=== PATIENT | male | born 1945 | race Caucasian/White ===

== ENCOUNTER 2021-03-09 10:28 | Inpatient (IN) ==
[2021-03-09] MEDS ORDERED: ALBUT/IPRATROP 3MG/0.5MG NEB 3 ML VIAL INH STA (11:38)
--- NOTE | 2021-03-09 11:42 | Emergency Department Note ---
Impression & Plan Hypoxia, Pneumonia, SOB (shortness of breath), Cough ED Provider Note NAME: ASHLEY MCCARTNEY AGE: 75 SEX: M : 1945 ARRIVES VIA: Ambulance INFORMANT: [Patient][ems] ED PROVIDER(S): [Don Michel MD] CHIEF COMPLAINT: Shortness of breath HISTORY OF PRESENT ILLNESS: The patient is a 75-year-old male who presents with shortness of breath and cough. His symptoms began about 5 days ago but things are escalating. He has felt more and more short of breath. He has had some sweats and chills and some arm aching. He is not sure if he has had a fever. He had a bout of diarrhea just a bit ago and vomited on the way to the hospital. The patient is vaccinated against COVID-19. He has had the flu vaccination. The patient is visiting from [place]. He was at the [facility] walk-in clinic, his O2 saturation was in the upper 80s, he was placed on oxygen and sent to this ED by ambulance. Patient is on Eliquis for A. fib. He has high blood pressure, diabetes type 2 and high cholesterol. No lung or coronary disease. REVIEW OF SYSTEMS: See HPI for pertinent positives and negatives. A total of ten systems were reviewed and were otherwise negative. PMHx/PSHx: See Below SOCIAL HISTORY: See Below. PHYSICAL EXAM: GENERAL: Patient is in mild respiratory distress. HEENT: No acute trauma, normocephalic atraumatic, mucous membranes moist, no nasal congestion, no scleral icterus. NECK: No stridor, no adenopathy, no meningismus, trachea is midline. LUNGS: Crackles at both bases, especially on the right. He does have an increased respiratory rate. He speaks in shorter sentences. Mild respiratory distress noted. HEART: No murmur, regular rate, he does have an irregular rhythm. ABDOMEN: Soft, nontender, bowel sounds positive, no hernias, no peritonitis. EXTREMITIES: No cyanosis, mild bilateral pedal edema, full range of motion of all the joints without pain or difficulty, no signs for acute trauma. NEUROLOGIC: Oriented x 3, no acute motor or sensory deficits, no focal weakness. SKIN: No rash, no jaundice, no diaphoresis. DIFFERENTIAL DIAGNOSIS: Reactive airway disease, pneumonia, pneumothorax, COPD, CHF, influenza, COVID- 19, infection, cardiac ischemia, pulmonary embolism, bronchitis, musculoskeletal, gastrointestinal, as well as other pathologies. EMERGENCY DEPARTMENT COURSE/PROCEDURES: ECG: Indication was shortness of breath. The ECG shows a normal sinus rhythm with a rate of 73. There is some nonspecific ST change. There is no ST elevation, no PVCs. The QTc is 445. Continuous Cardiac Monitoring: An order was placed for continuous cardiac monitoring. The monitor shows a rate of 84 with normal sinus rhythm. Critical Care Note: I have personally spent 52 minutes of critical care time in the direct management of this patient. This includes bedside care, interpretation of diagnostic studies, and testing, discussion with consultants, patient, and family members, and other required patient management activities. This 52 minutes is in excess of all separately billable procedures. MEDICAL DECISION MAKING: There is no leukocytosis or concerning anemia. Platelet count slightly low at 120. INR is mildly elevated, likely from his Eliquis use. No kidney failure. No significant electrolyte abnormality in need of emergent correction. No worrisome liver enzyme elevation. BNP is not elevated making CHF and fluid overload less likely. Procalcitonin level is not elevated. ECG shows a sinus rhythm. No ST elevation. Cardiac enzyme testing x1 is not consistent with ac [place] cardiac injury. Influenza testing returned negative. Covid testing returned negative. Chest film shows a bilateral pneumonia consistent with a viral process. No pneumothorax. Chest CT does not show PE, patchy bilateral infiltrates were noted. The patient received a DuoNeb. He received IV ceftriaxone. He was maintained on nasal cannula oxygen. The patient presents with a cough, some shortness of breath. He was hypoxic and requiring oxygen. He appears to have pneumonia by chest x-ray and CT imaging. Given his findings, given the hypoxia, a hospital stay is warranted. I did speak with the patient and case management, the on-call hospitalist was consulted. Past Med/Surg History Medical History Atrial fibrillation Reason for eliquis--follows with Dr Deras in [place]--pt states that since he had his ablation in 2007 he has not been in a-fib CAD (coronary artery disease) s/p stent per records Chronic back pain Diabetes mellitus, type 2 High cholesterol Hypertension On anticoagulant therapy eliquis daily Surgical History History of cardiac radiofrequency ablation 2008 in [place] History of colonoscopy History of left hip replacement 2017 History of tonsillectomy Hx of vasectomy Family History Other Heart disease No family history of adverse response to anesthesia Social History Smoking Status: Former smoker Tobacco Type: Cigarettes Second Hand Exposure: No; Hx Alcohol Use: Yes Alcohol type: beer Alcohol Intake Frequency: Monthly or Less Hx Substance Use: No Preferred Language: Thai Communication Ability: Effective Mission Commander Required: No Beliefs That Will Affect Care: None Current Living Situation: Family Current Living Situation Comment: lives with daughter and son-in-law Feels Safe at Home: Yes Assistive Devices: Glasses Allergies Allergies Allergy/AdvReac Type Severity Reaction Status Date / Time No Known Allergies Allergy Verified 03/09/21 13:21 Home Meds Home Medications Medication Instructions Recorded Confirmed apixaban 5 mg tablet (Eliquis) 5 mg PO BID 11/09/19 03/09/21 atorvastatin 10 mg tablet (Lipitor) 10 mg PO DAILY 11/09/19 03/09/21 ezetimibe 10 mg tablet (Zetia) 10 mg PO DAILY 11/09/19 03/09/21 gabapentin 300 mg capsule 300 mg PO BID 11/09/19 03/09/21 insulin glargine 100 unit/mL (3 50 unit SUBCUT QPM 11/09/19 03/09/21 mL) subcutaneous pen (Basaglar KwikPen U-100 Insulin) lisinopril 40 mg tablet 20 mg PO DAILY 11/09/19 03/09/21 sotalol 120 mg tablet 60 mg PO BID 11/09/19 03/09/21 terazosin 10 mg capsule 10 mg PO DAILY 11/09/19 03/09/21 dulaglutide 0.75 mg/0.5 mL 0.75 mg SUBCUT UD 03/09/21 03/09/21 subcutaneous pen injector (Trulicity) Results & Data (ED) Vital Signs Vital Signs - 24 hr 03/09/21 11:13 03/09/21 12:00 03/09/21 12:13 Temperature 36.3 C L 37.1 C Temperature Source Oral Oral Pulse Rate 84 69 Pulse Rate [Apical] 69 Pulse Rhythm Regular Pulse Rhythm [Apical] Regular Respiratory Rate 20 32 H 29 H Respiratory Effort / Characteristics Non-Labored Spontaneous Respiratory Depth Normal Respiratory Pattern Tachypnea Blood Pressure 144/71 H Blood Pressure [Left Radial Artery] 156/76 H Blood Pressure Mean 95 Blood Pressure Mean [Left Radial Artery] 102 Blood Pressure Position Sitting Blood Pressure Position [Left Radial Artery] Lying Pulse Oximetry 96 98 98 Oxygen Delivery Method Nasal Cannula Nasal Cannula Nasal Cannula Oxygen Flow Rate 2 2 2 Sepsis Recent Fever Within 48 Hours No Sepsis New/Unexplained Change in Mental Status N/A Sepsis Action Taken by Nursing No Action Required 03/09/21 12:19 03/09/21 12:37 03/09/21 13:15 Temperature Temperature Source Pulse Rate Pulse Rate [Apical] 69 70 Pulse Rhythm Pulse Rhythm [Apical] Respiratory Rate 20 26 H Respiratory Effort / Characteristics Spontaneous Non-Labored Spontaneous Respiratory Depth Respiratory Pattern Blood Pressure Blood Pressure [Left Radial Artery] 204/86 H Blood Pressure Mean Blood Pressure Mean [Left Radial Artery] 125 Blood Pressure Position Blood Pressure Position [Left Radial Artery] Sitting Pulse Oximetry 96 96 Oxygen Delivery Method Nasal Cannula Nasal Cannula Nasal Cannula Oxygen Flow Rate 2 2 2 Sepsis Recent Fever Within 48 Hours Sepsis New/Unexplained Change in Mental Status Sepsis Action Taken by Nursing 03/09/21 15:00 03/09/21 16:00 Temperature Temperature Source Pulse Rate Pulse Rate [Apical] 67 65 Pulse Rhythm Pulse Rhythm [Apical] Respiratory Rate 28 H 26 H Respiratory Effort / Characteristics Spontaneous Spontaneous Respiratory Depth Normal Normal Respiratory Pattern Blood Pressure Blood Pressure [Left Radial Artery] 210/95 H 181/84 H Blood Pressure Mean Blood Pressure Mean [Left Radial Artery] 133 116 Blood Pressure Position Blood Pressure Position [Left Radial Artery] Pulse Oximetry 95 94 Oxygen Delivery Method Nasal Cannula Oxygen Flow Rate 2 Sepsis Recent Fever Within 48 Hours Sepsis New/Unexplained Change in Mental Status Sepsis Action Taken by Longterm Medications Current Medication List: was personally reviewed by me Laboratory Data Attestation: I reviewed the patient's lab results. Result diagrams: 03/09/21 12:00 03/09/21 12:00 Lab Results 03/09/21 03/09/21 03/09/21 Range/Units 12:00 12:00 12:00 WBC 7.86 (4.8-10.8) K/uL RBC 4.55 L (4.7-6.1) M/uL Hgb 13.9 L (14.0-18.0) g/dL Hct 41.3 L (42-52) % MCV 90.8 (80-100) fL MCH 30.5 (25-34) pg MCHC 33.7 (32-36) g/dL RDW Std Deviation 48.0 H (36.4-46.3) fL RDW Coeff of Marcelo 14.5 (11.5-14.5) % Plt Count 120 L (130-400) K/uL MPV 10.0 (7.4-10.4) fL Immature Gran % (Auto) 0.1 % Neut % (Auto) 77.5 % Lymph % (Auto) 13.5 % Fleming % (Auto) 8.8 % Eos % (Auto) 0.0 % Baso % (Auto) 0.1 % Neut # (Auto) 6.09 (1.4-6.5) K/uL Lymph # (Auto) 1.06 L (1.2-3.4) K/uL Fleming # (Auto) 0.69 H (0.11-0.59) K/uL Eos # (Auto) 0.00 (0-0.5) K/uL Baso # (Auto) 0.01 (0-0.2) K/uL Immature Gran # (Auto) 0.01 (0.00-0.02) K/uL PT 12.8 H (9.0-12.0) Seconds INR 1.3 H (0.9-1.1) APTT 33.3 H (21.0-31.0) Seconds PTT Ratio 1.3 Sodium 139 (136-145) mmol/L Potassium 3.9 (3.5-5.1) mmol/L Chloride 104 (98-107) mmol/L Carbon Dioxide 25 (21-32) mmol/L Anion Gap 10.0 (3-11) BUN 19 H (7-18) mg/dl Creatinine 1.27 (0.6-1.4) mg/dl Est Cr Clr Drug Dosing 62.6 ml/min Est GFR ( Amer) 62.7 ml/min Est GFR (Non-Af Amer) 54.1 ml/min BUN/Creatinine Ratio 15.0 (10-20) Glucose 171 H (70-99) mg/dl Calcium 8.8 (8.5-10.1) mg/dl Magnesium 2.5 H (1.8-2.4) mg/dl Total Bilirubin 1.5 H (0.2-1) mg/dl AST 25 (15-37) U/L ALT 28 (12-78) U/L Alkaline Phosphatase 54 (45-117) U/L Troponin I 0.030 (0-0.045) ng/ml NT-Pro-B Natriuret Pep 1652 (0-1800) pg/ml Total Protein 6.9 (6.4-8.2) gm/dl Albumin 3.4 (3.4-5.0) gm/dl Globulin 3.5 (2.5-4.0) gm/dl Albumin/Globulin Ratio 1.0 (0.9-2) Procalcitonin (0-0.5) ng/ml Adenovirus (PCR) (NotDetected) B. pertussis DNA (PCR) (NotDetected) B.parapertussis DNA PCR (NotDetected) C. pneumoniae DNA (PCR) (NotDetected) Coronavirus OC43 (PCR) (NotDetected) Coronavirus HKU1 (PCR) (NotDetected) Coronavirus 229E (PCR) (NotDetected) SARS-CoV-2 (PCR) (Negative) Coronavirus NL63 (PCR) (NotDetected) Human Metapneumovir PCR (NotDetected) Influenza Type A (PCR) (NotDetected) Influ A Molecular Assay (Negative) Influenza Type B (PCR) (NotDetected) Influ B Molecular Assay (Negative) M. pneumoniae (PCR) (NotDetected) Parainfluenza 1 (PCR) (NotDetected) Parainfluenza 2 (PCR) (NotDetected) Parainfluenza 3 (PCR) (NotDetected) Parainfluenza 4 (PCR) (NotDetected) RSV (PCR) (NotDetected) Entero/Rhino (PCR) (NotDetected) 03/09/21 03/09/21 03/09/21 Range/Units 12:01 12:01 15:28 WBC (4.8-10.8) K/uL RBC (4.7-6.1) M/uL Hgb (14.0-18.0) g/dL Hct (42-52) % MCV (80-100) fL MCH (25-34) pg MCHC (32-36) g/dL RDW Std Deviation (36.4-46.3) fL RDW Coeff of Marcelo (11.5-14.5) % Plt Count (130-400) K/uL MPV (7.4-10.4) fL Immature Gran % (Auto) % Neut % (Auto) % Lymph % (Auto) % Fleming % (Auto) % Eos % (Auto) % Baso % (Auto) % Neut # (Auto) (1.4-6.5) K/uL Lymph # (Auto) (1.2-3.4) K/uL Fleming # (Auto) (0.11-0.59) K/uL Eos # (Auto) (0-0.5) K/uL Baso # (Auto) (0-0.2) K/uL Immature Gran # (Auto) (0.00-0.02) K/uL PT (9.0-12.0) Seconds INR (0.9-1.1) APTT (21.0-31.0) Seconds PTT Ratio Sodium (136-145) mmol/L Potassium (3.5-5.1) mmol/L Chloride (98-107) mmol/L Carbon Dioxide (21-32) mmol/L Anion Gap (3-11) BUN (7-18) mg/dl Creatinine (0.6-1.4) mg/dl Est Cr Clr Drug Dosing ml/min Est GFR ( Amer) ml/min Est GFR (Non-Af Amer) ml/min BUN/Creatinine Ratio (10-20) Glucose (70-99) mg/dl Calcium (8.5-10.1) mg/dl Magnesium (1.8-2.4) mg/dl Total Bilirubin (0.2-1) mg/dl AST (15-37) U/L ALT (12-78) U/L Alkaline Phosphatase (45-117) U/L Troponin I (0-0.045) ng/ml NT-Pro-B Natriuret Pep (0-1800) pg/ml Total Protein (6.4-8.2) gm/dl Albumin (3.4-5.0) gm/dl Globulin (2.5-4.0) gm/dl Albumin/Globulin Ratio (0.9-2) Procalcitonin (0-0.5) ng/ml Adenovirus (PCR) Not Detected (NotDetected) B. pertussis DNA (PCR) Not Detected (NotDetected) B.parapertussis DNA PCR Not Detected (NotDetected) C. pneumoniae DNA (PCR) Not Detected (NotDetected) Coronavirus OC43 (PCR) Not Detected (NotDetected) Coronavirus HKU1 (PCR) Not Detected (NotDetected) Coronavirus 229E (PCR) Not Detected (NotDetected) SARS-CoV-2 (PCR) NEGATIVE Not Detected (Negative) Coronavirus NL63 (PCR) Not Detected (NotDetected) Human Metapneumovir PCR Not Detected (NotDetected) Influenza Type A (PCR) Not Detected (NotDetected) Influ A Molecular Assay Negative (Negative) Influenza Type B (PCR) Not Detected (NotDetected) Influ B Molecular Assay Negative (Negative) M. pneumoniae (PCR) Not Detected (NotDetected) Parainfluenza 1 (PCR) Not Detected (NotDetected) Parainfluenza 2 (PCR) Not Detected (NotDetected) Parainfluenza 3 (PCR) DETECTED A* (NotDetected) Parainfluenza 4 (PCR) Not Detected (NotDetected) RSV (PCR) Not Detected (NotDetected) Entero/Rhino (PCR) Not Detected (NotDetected) 03/09/21 Range/Units 15:53 WBC (4.8-10.8) K/uL RBC (4.7-6.1) M/uL Hgb (14.0-18.0) g/dL Hct (42-52) % MCV (80-100) fL MCH (25-34) pg MCHC (32-36) g/dL RDW Std Deviation (36.4-46.3) fL RDW Coeff of Marcelo (11.5-14.5) % Plt Count (130-400) K/uL MPV (7.4-10.4) fL Immature Gran % (Auto) % Neut % (Auto) % Lymph % (Auto) % Fleming % (Auto) % Eos % (Auto) % Baso % (Auto) % Neut # (Auto) (1.4-6.5) K/uL Lymph # (Auto) (1.2-3.4) K/uL Fleming # (Auto) (0.11-0.59) K/uL Eos # (Auto) (0-0.5) K/uL Baso # (Auto) (0-0.2) K/uL Immature Gran # (Auto) (0.00-0.02) K/uL PT (9.0-12.0) Seconds INR (0.9-1.1) APTT (21.0-31.0) Seconds PTT Ratio Sodium (136-145) mmol/L Potassium (3.5-5.1) mmol/L Chloride (98-107) mmol/L Carbon Dioxide (21-32) mmol/L Anion Gap (3-11) BUN (7-18) mg/dl Creatinine (0.6-1.4) mg/dl Est Cr Clr Drug Dosing ml/min Est GFR ( Amer) ml/min Est GFR (Non-Af Amer) ml/min BUN/Creatinine Ratio (10-20) Glucose (70-99) mg/dl Calcium (8.5-10.1) mg/dl Magnesium (1.8-2.4) mg/dl Total Bilirubin (0.2-1) mg/dl AST (15-37) U/L ALT (12-78) U/L Alkaline Phosphatase (45-117) U/L Troponin I (0-0.045) ng/ml NT-Pro-B Natriuret Pep (0-1800) pg/ml Total Protein (6.4-8.2) gm/dl Albumin (3.4-5.0) gm/dl Globulin (2.5-4.0) gm/dl Albumin/Globulin Ratio (0.9-2) Procalcitonin < 0.05 (0-0.5) ng/ml Adenovirus (PCR) (NotDetected) B. pertussis DNA (PCR) (NotDetected) B.parapertussis DNA PCR (NotDetected) C. pneumoniae DNA (PCR) (NotDetected) Coronavirus OC43 (PCR) (NotDetected) Coronavirus HKU1 (PCR) (NotDetected) Coronavirus 229E (PCR) (NotDetected) SARS-CoV-2 (PCR) (Negative) Coronavirus NL63 (PCR) (NotDetected) Human Metapneumovir PCR (NotDetected) Influenza Type A (PCR) (NotDetected) Influ A Molecular Assay (Negative) Influenza Type B (PCR) (NotDetected) Influ B Molecular Assay (Negative) M. pneumoniae (PCR) (NotDetected) Parainfluenza 1 (PCR) (NotDetected) Parainfluenza 2 (PCR) (NotDetected) Parainfluenza 3 (PCR) (NotDetected) Parainfluenza 4 (PCR) (NotDetected) RSV (PCR) (NotDetected) Entero/Rhino (PCR) (NotDetected) Administered Medications Doxycycline Hyclate 100 mg/ (Dextrose) 110 mls @ 50 mls/hr IV Q12H LU Stop: 03/16/21 15:59 Last Admin: 03/09/21 16:55 Dose: 50 mls/hr Documented by: [id number] Discontinued Medications Albuterol (Albut/Ipratrop 3mg/0.5mg Neb 3 Ml Vial) 3 ml INH NOW STA Stop: 03/09/21 11:39 Last Admin: 03/09/21 12:37 Dose: 3 ml Documented by: [id number] Apixaban (Apixaban 2.5 Mg Tab) 5 mg PO ONE ONE Stop: 03/09/21 16:15 Last Admin: 03/09/21 16:56 Dose: 5 mg Documented by: [id number] Ceftriaxone Sodium (Rocephin) 2,000 mg in 70 mls @ 140 mls/hr IV NOW STA Stop: 03/09/21 13:52 Last Infusion: 03/09/21 15:50 Dose: 0 mls/hr Documented by: [id number] Admin: 03/09/21 13:56 Dose: 140 mls/hr Documented by: [id number] Ioversol (Optiray 320 125ml) 120 ml IV ONCE ONE Stop: 03/09/21 14:19 Last Admin: 03/09/21 14:19 Dose: 120 ml Documented by: [id number] Lisinopril (Lisinopril 20 Mg Tab) 20 mg PO NOW STA Stop: 03/09/21 16:16 Last Admin: 03/09/21 16:59 Dose: 20 mg Documented by: [id number] Sotalol HCl (Sotalol Hcl 80 Mg Tab) 60 mg PO NOW ONE Stop: 03/09/21 16:16 Last Admin: 03/09/21 17:00 Dose: 60 mg Documented by: [id number] Imaging Data Radiologist's Impression: Chest X-Ray 03/09/21 11:38 XR chest 1V portable CLINICAL HISTORY: SOB. COMPARISON STUDY: 11/09/2019 TECHNIQUE: 1 view of the chest FINDINGS: Single frontal view of the chest demonstrates the cardiomediastinal silhouette to be within normal limits. Patchy interstitial and alveolar opacities are present bilaterally. The findings are most characteristic of a viral type pneumonitis. Covid 19 pneumonia should be excluded. There is no evidence for pleural effusion. There is no evidence for vascular congestion. There is no acute osseous pathology. IMPRESSION: Patchy interstitial and alveolar opacities bilaterally characteristic of a viral type pneumonitis and probable early Covid 19 pneumonia. ACT 112: Negative or not required by law. Electronically signed by: Jonathan Seth M.D. 03/09/2021 12:53 PM Chest CTA 03/09/21 13:24 CT angio chest PE protocol CLINICAL HISTORY: Shortness of breath and cough. Evaluate for pulmonary embolus. Abnormal chest radiograph COMPARISON STUDY: Portable chest from 03/09/2021 CT DOSE: 638.28 mGy.cm TECHNIQUE: CT Angio of the chest was performed.followed by image post processing with coronal, and sagittal MIP reformats. Contrast Volume: Optiray 320, 120 ml FINDINGS: Vasculature: There is homogeneous perfusion of the pulmonary vasculature bilaterally. No intraluminal filling defects or evidence for pulmonary embolus is seen. Airway: The airway is clear. No endobronchial lesion is identified. Lungs: Extensive groundglass opacities are present throughout both lungs characteristic of a viral type pneumonitis and Covid 19 pneumonia. The lungs are otherwise clear of confluent alveolar opacities, air bronchograms or pulmonary nodules. Pleura: There is no evidence for pleural effusion. There is no evidence for pneumothorax. Mediastinum: There is no evidence for pathologic adenopathy. The heart size is within normal limits. There is mild coronary artery calcification. The thoracic aorta is within normal limits. There is no evidence for pericardial effusion. Upper abdomen:The adrenal glands are normal bilaterally. There is a small hiatal hernia with mucosal thickening. There is cholelithiasis with no CT evidence for acute cholecystitis. Osseous structures: There is no acute osseous pathology. Degenerative changes are seen within the spine. Impression: 1. No CTA evidence for pulmonary embolus. 2. Extensive groundglass opacities are present throughout both lungs characteristic of a viral type pneumonitis and Covid 19 pneumonia. 3. Small hiatal hernia and cholelithiasis. ACT 112: Negative or not required by law. Electronically signed by: Jonathan Seth M.D. 03/09/2021 2:52 PM Discharge Plan Visit Data Chief Complaint: Shortness of Breath/Dyspnea Stated Complaint: WEAKNESS ED Provider: Don Michel Discharge Problem: Hypoxia, Pneumonia, SOB (shortness of breath), Cough Patient Disposition: Admitted As Inpatient Condition: Fair Forms Stand Alone Forms: [facility] Prescriptions Prescriptions: No Action atorvastatin [Lipitor] 10 mg tablet 10 mg PO DAILY RF: 0 sotalol 120 mg tablet 60 mg PO BID RF: 0 gabapentin 300 mg capsule 300 mg PO BID RF: 0 lisinopril 40 mg tablet 20 mg PO DAILY RF: 0 terazosin 10 mg capsule 10 mg PO DAILY RF: 0 ezetimibe [Zetia] 10 mg tablet 10 mg PO DAILY RF: 0 Basaglar KwikPen U-100 Insulin 100 unit/mL (3 mL) insulin pen 50 unit SUBCUT QPM RF: 0 Eliquis 5 mg tablet 5 mg PO BID RF: 0 Trulicity 0.75 mg/0.5 mL pen injector 0.75 mg SUBCUT UD RF: 0 Referrals Referrals: PCP,NO [Primary Care Provider] -
[2021-03-09 12:18] LABS: Basophils # (auto) 0.01 K/uL (0-0.2); Basophils % (auto) 0.1 %; Hematocrit (blood only) 41.3 % (42-52); Hemoglobin 13.9 g/dL (14.0-18.0); Immature Granulocytes # (auto) 0.01 K/uL (0.00-0.02); Immature Granulocytes % (auto) 0.1 %; Lymphocytes # (auto) 1.06 K/uL (1.2-3.4); Lymphocytes % (auto) 13.5 %; Mean Corpuscular Hemoglobin 30.5 pg (25-34); Mean Corpuscular Hgb Conc 33.7 g/dL (32-36); Mean Corpuscular Volume 90.8 fL (80-100); Monocytes # (auto) 0.69 K/uL (0.11-0.59); Monocytes % (auto) 8.8 %; Neutrophils # (auto) 6.09 K/uL (1.4-6.5); Neutrophils % (auto) 77.5 %; Platelet Count 120 K/uL (130-400); RDW Coefficient of Variation 14.5 % (11.5-14.5); Red Blood Count 4.55 M/uL (4.7-6.1); White Blood Count 7.86 K/uL (4.8-10.8)
[2021-03-09 12:34] LABS: INR 1.3 (0.9-1.1); Partial Thromboplastin Ratio 1.3; Partial Thromboplastin Time 33.3 Seconds (21.0-31.0); Prothrombin Time 12.8 Seconds (9.0-12.0)
[2021-03-09 12:35] LABS: Albumin Level 3.4 gm/dl (3.4-5.0); Calcium 8.8 mg/dl (8.5-10.1); Creatinine Clr Calc Pharmacy 62.6 ml/min; Est GFR (African American) 62.7 ml/min; Est GFR (Non-African American) 54.1 ml/min; Magnesium 2.5 mg/dl (1.8-2.4); Potassium 3.9 mmol/L (3.5-5.1)
[2021-03-09 12:40] LABS: Bilirubin,Total 1.5 mg/dl (0.2-1); Globulin 3.5 gm/dl (2.5-4.0); Total Protein 6.9 gm/dl (6.4-8.2); Troponin I 0.03 ng/ml (0-0.045)
[2021-03-09 12:46] LABS: Influenza A virus by PCR Negative (Negative); Influenza B virus by PCR Negative (Negative)
--- NOTE | 2021-03-09 12:55 | XRay Report ---
XR chest 1V portable CLINICAL HISTORY: SOB. COMPARISON STUDY: 11/09/2019 TECHNIQUE: 1 view of the chest FINDINGS: Single frontal view of the chest demonstrates the cardiomediastinal silhouette to be within normal li mits. Patchy interstitial and alveolar opacities are present bilaterally. The findings are most michele cteristic of a viral type pneumonitis. Covid 19 pneumonia should be excluded. There is no evidence fo r pleural effusion. There is no evidence for vascular congestion. There is no acute osseous pathology . IMPRESSION: Patchy interstitial and alveolar opacities bilaterally characteristic of a viral type pne umonitis and probable early Covid 19 pneumonia. ACT 112: Negative or not required by law. Electronically signed by: Jonathan Seth M.D. 03/09/2021 12:53 PM
[2021-03-09] MEDS ORDERED: cefTRIAXone SODIUM 2,000 MG/70 ML BAG IV STA (13:23)
[2021-03-09] MEDS ORDERED: OPTIRAY 320 125ml IV ONE (14:18)
--- NOTE | 2021-03-09 14:54 | CT Scan Report ---
CT angio chest PE protocol CLINICAL HISTORY: Shortness of breath and cough. Evaluate for pulmonary embolus. Abnormal chest radio graph COMPARISON STUDY: Portable chest from 03/09/2021 CT DOSE: 638.28 mGy.cm TECHNIQUE: CT Angio of the chest was performed.followed by image post processing with coronal, and s agittal MIP reformats. Contrast Volume: Optiray 320, 120 ml FINDINGS: Vasculature: There is homogeneous perfusion of the pulmonary vasculature bilaterally. No intraluminal filling defects or evidence for pulmonary embolus is seen. Airway: The airway is clear. No endobronchial lesion is identified. Lungs: Extensive groundglass opacities are present throughout both lungs characteristic of a viral ty pe pneumonitis and Covid 19 pneumonia. The lungs are otherwise clear of confluent alveolar opacities, air bronchograms or pulmonary nodules. Pleura: There is no evidence for pleural effusion. There is no evidence for pneumothorax. Mediastinum: There is no evidence for pathologic adenopathy. The heart size is within normal limits. There is mild coronary artery calcification. The thoracic aorta is within normal limits. There is no evidence for pericardial effusion. Upper abdomen:The adrenal glands are normal bilaterally. There is a small hiatal hernia with mucosal thickening. There is cholelithiasis with no CT evidence for acute cholecystitis. Osseous structures: There is no acute osseous pathology. Degenerative changes are seen within the sp ine. Impression: 1. No CTA evidence for pulmonary embolus. 2. Extensive groundglass opacities are present throughout both lungs characteristic of a viral type p neumonitis and Covid 19 pneumonia. 3. Small hiatal hernia and cholelithiasis. ACT 112: Negative or not required by law. Electronically signed by: Jonathan Seth M.D. 03/09/2021 2:52 PM
--- NOTE | 2021-03-09 15:16 | History & Physical Report ---
Date of Service March 09, 2021 Assessment & Plan (1) Pneumonia: (2) Person under investigation for COVID-19: Plan: This is a 75yo M with a PMH of atrial fibrillation on anticoagulation, type 2 diabetes, hypertension and other medical problems listed below who presents with shortness of breath over the past 5 days. Chest CTA with extensive groundglass opacities present throughout both lungs characteristic of viral type pneumonitis. No evidence for PE Continue covering empirically for CAP with rocephin, doxy for now, plan to discontinue after 24 hours. Procal negative Covid PCR negative, bio fire positive for parainfluenza Keep on isolation for now, repeat covid pcr in AM Supplemental O2 as needed (3) Hypertension: Plan: Elevated BP upon arrival, did not take any home meds today - given lisinopril in ED. Continue lisinopril (4) Diabetes mellitus, type 2: Plan: A1c 8.9 in 2019 - repeat a1c in AM Hold home agents Glycemic consult placed for mgmt since patient is insulin requiring and may receive IV steroids BSG AC HS (5) Atrial fibrillation: Plan: Given missed dose of Sotalol. Plan to continue BID Continue Eliquis for anticoagulation DVT Ppx: Eliquis Code status: FULL PCP: Visiting from [place], plans to return after holidays Dispo: Admitted to [facility] Patient seen in collaboration with Dr. Crook. Please see addendum. History of Present Illness Chief Complaint: cough, sob Primary Care Provider: NO PCP This is a 75yo M with a PMH of atrial fibrillation on anticoagulation, type 2 diabetes, hypertension and other medical problems listed below who presents with shortness of breath over the past 5 days. Patient lives in [place] but has been in town for 3 weeks visiting family. In addition to feeling SOB, patient has been experiencing productive cough and sinus drainage. Has had sweats and chills but denies chico fever or hemoptysis. No wheezing. No chest pain, abdominal pain, dysuria or constipation. Endorses poor appetite over the past 2 days but no nausea or vomiting. Endorses large bowel movement this morning. Patient is taking all medications as prescribed but did not take morning doses. Received both doses of Covid vaccination. Receives all medical care in [place]. Allergies Allergy/AdvReac Type Severity Reaction Status Date / Time No Known Allergies Allergy Verified 03/09/21 13:21 Home Medications Medication Instructions Recorded Confirmed Type apixaban 5 mg tablet (Eliquis) 5 mg PO BID 11/09/19 03/09/21 History atorvastatin 10 mg tablet (Lipitor) 10 mg PO DAILY 11/09/19 03/09/21 History ezetimibe 10 mg tablet (Zetia) 10 mg PO DAILY 11/09/19 03/09/21 History gabapentin 300 mg capsule 300 mg PO BID 11/09/19 03/09/21 History insulin glargine 100 unit/mL (3 50 unit SUBCUT QPM 11/09/19 03/09/21 History mL) subcutaneous pen (Basaglar KwikPen U-100 Insulin) lisinopril 40 mg tablet 20 mg PO DAILY 11/09/19 03/09/21 History sotalol 120 mg tablet 60 mg PO BID 11/09/19 03/09/21 History terazosin 10 mg capsule 10 mg PO DAILY 11/09/19 03/09/21 History dulaglutide 0.75 mg/0.5 mL 0.75 mg SUBCUT UD 03/09/21 03/09/21 History subcutaneous pen injector (Trulicity) Past Med/Surg History Medical History Atrial fibrillation Reason for eliquis--follows with Dr Deras in [place]--pt states that since he had his ablation in 2007 he has not been in a-fib CAD (coronary artery disease) s/p stent per records Chronic back pain Diabetes mellitus, type 2 High cholesterol Hypertension On anticoagulant therapy eliquis daily Surgical History History of cardiac radiofrequency ablation 2007 in [place] History of colonoscopy History of left hip replacement 2017 History of tonsillectomy Hx of vasectomy Family History Other Heart disease No family history of adverse response to anesthesia Social History Smoking Status: Former smoker Tobacco Type: Cigarettes Second Hand Exposure: No; Hx Alcohol Use: Yes Alcohol type: beer Alcohol Intake Frequency: Monthly or Less Hx Substance Use: No Preferred Language: Frisian Communication Ability: Effective Hog Room Supervisor Required: No Beliefs That Will Affect Care: None Current Living Situation: Family Current Living Situation Comment: lives with daughter and son-in-law Feels Safe at Home: Yes Assistive Devices: Glasses Review of Systems Review of Systems: At least ten systems reviewed and negative except as noted in the HPI. Physical Exam Physical Exam: Please see Dr. Crook's addendum for physical exam. Results & Data Results & Data ([facility]) Vital Signs (Past 12 Hours) Vital Signs Temp Pulse Pulse Resp BP BP Pulse Ox 03/09/21 13:15 70 26 H 204/86 H 96 03/09/21 12:37 69 20 96 03/09/21 12:13 37.1 C 69 29 H 156/76 H 98 03/09/21 12:00 69 32 H 98 03/09/21 11:13 36.3 C L 84 20 144/71 H 96 Laboratory Results Short CBC 03/09/21 Range/Units 12:00 WBC 7.86 (4.8-10.8) K/uL Hgb 13.9 L (14.0-18.0) g/dL Hct 41.3 L (42-52) % Plt Count 120 L (130-400) K/uL BMP 03/09/21 12:00 Sodium 139 Potassium 3.9 Chloride 104 Carbon Dioxide 25 BUN 19 H Creatinine 1.27 Glucose 171 H Calcium 8.8 Cardiac Enzymes 03/09/21 Range/Units 12:00 Troponin I 0.030 (0-0.045) ng/ml Liver Function 03/09/21 Range/Units 12:00 Total Bilirubin 1.5 H (0.2-1) mg/dl AST 25 (15-37) U/L ALT 28 (12-78) U/L Alkaline Phosphatase 54 (45-117) U/L Albumin 3.4 (3.4-5.0) gm/dl Diagnostic Findings Chest X-Ray 03/09/21 11:38 XR chest 1V portable CLINICAL HISTORY: SOB. COMPARISON STUDY: 11/09/2019 TECHNIQUE: 1 view of the chest FINDINGS: Single frontal view of the chest demonstrates the cardiomediastinal silhouette to be within normal limits. Patchy interstitial and alveolar opacities are present bilaterally. The findings are most characteristic of a viral type pneumonitis. Covid 19 pneumonia should be excluded. There is no evidence for pleural effusion. There is no evidence for vascular congestion. There is no acute osseous pathology. IMPRESSION: Patchy interstitial and alveolar opacities bilaterally characteristic of a viral type pneumonitis and probable early Covid 19 pneum onia. ACT 112: Negative or not required by law. Electronically signed by: Jonathan Seth M.D. 03/09/2021 12:53 PM Chest CTA 03/09/21 13:24 CT angio chest PE protocol CLINICAL HISTORY: Shortness of breath and cough. Evaluate for pulmonary embolus. Abnormal chest radiograph COMPARISON STUDY: Portable chest from 03/09/2021 CT DOSE: 638.28 mGy.cm TECHNIQUE: CT Angio of the chest was performed.followed by image post processing with coronal, and sagittal MIP reformats. Contrast Volume: Optiray 320, 120 ml FINDINGS: Vasculature: There is homogeneous perfusion of the pulmonary vasculature bilaterally. No intraluminal filling defects or evidence for pulmonary embolus is seen. Airway: The airway is clear. No endobronchial lesion is identified. Lungs: Extensive groundglass opacities are present throughout both lungs characteristic of a viral type pneumonitis and Covid 19 pneumonia. The lungs are otherwise clear of confluent alveolar opacities, air bronchograms or pulmonary nodules. Pleura: There is no evidence for pleural effusion. There is no evidence for pneumothorax. Mediastinum: There is no evidence for pathologic adenopathy. The heart size is within normal limits. There is mild coronary artery calcification. The thoracic aorta is within normal limits. There is no evidence for pericardial effusion. Upper abdomen:The adrenal glands are normal bilaterally. There is a small hiatal hernia with mucosal thickening. There is cholelithiasis with no CT evidence for acute cholecystitis. Osseous structures: There is no acute osseous pathology. Degenerative changes are seen within the spine. Impression: 1. No CTA evidence for pulmonary embolus. 2. Extensive groundglass opacities are present throughout both lungs characteristic of a viral type pneumonitis and Covid 19 pneumonia. 3. Small hiatal hernia and cholelithiasis. ACT 112: Negative or not required by law. Electronically signed by: Jonathan Seth M.D. 03/09/2021 2:52 PM Supervising Physician Co-Signing Physician Notes Attending Addendum: care coordinated with KARYN Coles please refer to her notes for full details, I agree with her notes patient seen and examined, records reviewed by myself as well on exam, patient seen resting in bed, comfortable, not in distress On 2 L of oxygen via nasal cannula States he feels somewhat improved compared to admission Has occasional dry cough, no fevers or chills, no chest pain no other symptoms VS noted and reviewed oriented x 3 , not in distress, speaks in sentences with no effort nor accessory muscle use normal rate, regular rhythm, no murmurs Positive mild wheezing at the bases, no crackles non distended, soft, nontender no bipedal edema, erythema, warmth no neuro deficits WBC 7.8 Hg 13[address] chest: 1. No CTA evidence for pulmonary embolus. 2. Extensive groundglass opacities are present throughout both lungs characteristic of a viral type pneumonitis and Covid 19 pneumonia. 3. Small hiatal hernia and cholelithiasis. ASSESSMENT AND PLAN BILATERAL PNEUMONIA WITH HYPOXIA Likely secondary to parainfluenza type III virus Rule out COVID-19 pneumonia Start prednisone 40 mg daily Patient declines nebulizer treatments as these have induced atrial fibrillation in the past Empiric ceftriaxone was doxycycline for now Follow-up blood cultures Sputum culture Repeat Covid PCR tomorrow Hypertension Resume usual medications As needed hydralazine History of atrial fibrillation Continue sotalol and Eliquis other diagnoses and plan of care as per KARYN Coles's notes Jung Crook MD
[2021-03-09] MEDS ORDERED: APIXABAN 2.5 MG TAB PO ONE (16:14)
[2021-03-09] MEDS ORDERED: lisinopril 20 MG TAB PO STA (16:15)
[2021-03-09] MEDS ORDERED: SOTALOL HCL 80 MG TAB PO ONE (16:15)
[2021-03-09 16:33] LABS: Adenovirus PCR Not Detected (NotDetected); Bordetella parapertussis PCR Not Detected (NotDetected); Bordetella pertussis PCR Not Detected (NotDetected); Chlamydia pneumoniae PCR Not Detected (NotDetected); Coronavirus 229E PCR Not Detected (NotDetected); Coronavirus CoV-2 (COVID19)PCR Not Detected (NotDetected); Coronavirus HKU1 PCR Not Detected (NotDetected); Coronavirus NL63 PCR Not Detected (NotDetected); Coronavirus OC43PCR Not Detected (NotDetected); Human Metapneumovirus PCR Not Detected (NotDetected); Influenza A PCR Not Detected (NotDetected); Influenza B PCR Not Detected (NotDetected); Mycoplasma pneumoniae PCR Not Detected (NotDetected); Parainfluenza Virus 1 PCR Not Detected (NotDetected); Parainfluenza Virus 2 PCR Not Detected (NotDetected); Parainfluenza Virus 4 PCR Not Detected (NotDetected); Respiratory Syncytial VirusPCR Not Detected (NotDetected); Rhinovirus/Enterovirus PCR Not Detected (NotDetected)
[2021-03-09 16:50] LABS: Parainfluenza Virus 3 PCR DETECTED (NotDetected)
[2021-03-09] MEDS: DOXYCYCLINE HYCLATE 100 MG in DEXTROSE 5% 100 ML IV SCH (16:55)
--- NOTE | 2021-03-09 17:19 | Electrocardiogram Report ---
Test Reason : Blood Pressure : / mmHG Vent. Rate : 073 BPM Atrial Rate : 073 BPM P-R Int : 148 ms QRS Dur : 086 ms QT Int : 404 ms P-R-T Axes : 067 028 041 degrees QTc Int : 445 ms Normal sinus rhythm Nonspecific ST and T wave abnormality Abnormal ECG When compared with ECG of 09-NOV-2019 09:32, Vent. rate has increased BY 34 BPM Nonspecific T wave abnormality now evident in Anterior leads Confirmed by Bill Ervin ([id number]) on 03/09/2021 5:18:47 PM Referred By: Confirmed By:Francisco Javier Ervin
[2021-03-09] MEDS ORDERED: PHARMACY GLYCEMIC MGMT CONSULT PRN (17:25)
[2021-03-09] MEDS: INSULIN ASPART 100 UNITS/ML 3 ML PEN SC SCH ×2 (19:12→21:47)
[2021-03-09] MEDS ORDERED: GLUCOSE 10 TABS/TUBE PO PRN (19:45)
[2021-03-09] MEDS ORDERED: GLUCAGON FOR INJ 1 MG VIAL IM PRN (19:45)
[2021-03-09] MEDS ORDERED: CARBOHYDRATES FOR HYPOGLYCEMIA PO PRN (19:45)
[2021-03-09] MEDS ORDERED: GLUCOSE 40% GEL 15 GM TUBE PO PRN (19:45)
[2021-03-09] MEDS ORDERED: DEXTROSE 50% 50 ML SYRINGE IV PRN (19:45)
[2021-03-09] MEDS ORDERED: INSULIN GLARGINE SOLOSTAR 100 UNITS/ML 3 ML PEN SC SCH (21:00)
[2021-03-09] MEDS ORDERED: ONDANSETRON INJ 2 MG/ML 2 ML VIAL IV PRN (22:20)
[2021-03-09] MEDS ORDERED: ACETAMINOPHEN 325 MG TAB PO PRN (22:20)
[2021-03-09] MEDS ORDERED: POLYETHYLENE (MIRALAX) 17 GM PACK PO PRN (22:20)
[2021-03-09] MEDS: GABAPENTIN 300 MG CAP PO SCH (23:23)
[2021-03-09] MEDS: SOTALOL HCL 80 MG TAB PO SCH (23:23)
[2021-03-10] MEDS: DOXYCYCLINE HYCLATE 100 MG in DEXTROSE 5% 100 ML IV SCH ×2 (03:51→17:28)
[2021-03-10 05:45] LABS: Hematocrit (blood only) 36.6 % (42-52); Hemoglobin 12.5 g/dL (14.0-18.0); Mean Corpuscular Hemoglobin 31.1 pg (25-34); Mean Corpuscular Hgb Conc 34.2 g/dL (32-36); Mean Platelet Volume 9.9 fL (7.4-10.4); Platelet Count 108 K/uL (130-400); RDW Coefficient of Variation 14.5 % (11.5-14.5); Red Blood Count 4.02 M/uL (4.7-6.1); White Blood Count 5.89 K/uL (4.8-10.8)
[2021-03-10 06:18] LABS: BUN Creatinine Ratio 21.4 (10-20); Calcium 8.4 mg/dl (8.5-10.1); Est GFR (Non-African American) 82.9 ml/min; Potassium 3.5 mmol/L (3.5-5.1)
[2021-03-10 08:00] LABS: Estimated Average Glucose 157 mg/dl; Hemoglobin A1C 7.1 % (4.5-5.6)
[2021-03-10 08:07] LABS: Creatinine Clr Calc Pharmacy 90.4 ml/min
[2021-03-10] MEDS: INSULIN ASPART 100 UNITS/ML 3 ML PEN SC SCH ×4 (08:17→21:47)
[2021-03-10] MEDS: EZETIMIBE 10 MG TABLET PO SCH (08:20)
[2021-03-10] MEDS: ATORVASTATIN 10 MG TAB PO SCH (08:20)
[2021-03-10] MEDS: APIXABAN 5 MG TABLET PO SCH ×2 (08:20→21:41)
[2021-03-10] MEDS: TERAZOSIN HCL 5 MG CAP PO SCH (08:20)
[2021-03-10] MEDS: lisinopril 20 MG TAB PO SCH (08:20)
[2021-03-10] MEDS: GABAPENTIN 300 MG CAP PO SCH ×2 (08:21→21:42)
[2021-03-10] MEDS: SOTALOL HCL 80 MG TAB PO SCH ×2 (08:21→21:41)
[2021-03-10] MEDS ORDERED: predniSONE 20 MG TAB PO SCH (09:15)
[2021-03-10] MEDS: cefTRIAXone SODIUM 2,000 MG in DEXTROSE 5% 50 ML IV SCH (09:34)
--- NOTE | 2021-03-10 14:10 | Pharmacy Report ---
Pharmacy Glycemic Short Note 2 - Date of Service March 10, 2021 - Glycemic Short BSG Results (Last 24 hours): 03/09/21 03/09/21 03/10/21 18:29 21:39 04:47 Glucose 101 H POC Glucose 145 H 145 H 03/10/21 03/10/21 07:34 11:34 Glucose POC Glucose 94 132 H OUTPATIENT ANTIDIABETIC REGIMEN: * Basaglar 50 units Q HS * Trulicity 0.75mg weekly * A1c = 7.1% 03/10/21 ASSESSMENT: * Type 2 diabetic admitted for parainfluenza viral pna * Recent A1c reflects good control with outpt regimen basal insulin + GLP1Ag * Fasting BSG 94 this AM w/ 35 units Lantus on board, will reduce dose another 25% to avoid fasting lows * Post-prandial BSGs controlled with current Novolog CF and CR - no change PLAN FOR INPATIENT GLYCEMIC CONTROL: * Hold outpatient oral diabetes medications * Basal insulin * Lantus 25 units SQ Q HS * Bolus insulin * NovoLog per scale ACHS or Q6hrs while NPO * Goal Range: Low 110 mg/dL - High 140 mg/dL * Correction Factor: 20 mg/dL/unit * Nutritional / Prandial insulin per carb ratio of 1 unit per 7 grams CHO consumed PLAN FOR DISCHARGE: * may resume home regimen of Basaglar and Trulicity on discharge given good control, if no contraindications present.
[2021-03-10] MEDS ORDERED: hydrALAZINE HCL 20 MG/ML VIAL IV ONE ×2 (16:39→16:53)
--- NOTE | 2021-03-10 16:52 | XRay Report ---
XR chest 1V portable CLINICAL HISTORY: Follow-up suspected Covid pneumonia. COMPARISON STUDY: 03/09/2021 an interval CTA chest from 03/01/2021 TECHNIQUE: 1 view of the chest FINDINGS: Single frontal view of the chest demonstrates the cardiomediastinal silhouette to be within normal li mits. Compared to the previous examination, there is a deeper inspiratory effort with decreased promi nence of interstitial and alveolar opacities bilaterally. There is no evidence for pleural effusion. There is no evidence for vascular congestion. There is no acute osseous pathology. IMPRESSION: Deeper inspiratory effort with decreased prominence of the previously identified intersti tial and alveolar opacities bilaterally. Compared to the interval CT examination, the findings are ag ain characteristic of a viral type pneumonitis and Covid 19 pneumonia. ACT 112: Negative or not required by law. Electronically signed by: Jonathan Seth M.D. 03/10/2021 4:51 PM
[2021-03-10] MEDS: guaiFENesin 600 MG TABCR PO SCH (17:27)
[2021-03-10] MEDS ORDERED: amLODIPine BESYLATE 5 MG TAB PO ONE (18:59)
--- NOTE | 2021-03-10 19:00 | Hospitalist Progress Note ---
Date of Service March 10, 2021 Assessment & Plan (1) Pneumonia: Plan: Secondary to parainfluenza virus Covid screen x2 Repeat chest x-ray: Bilateral pneumonia, same as yesterday Patient adamantly declines nebulizer treatments at this have caused rapid A. fib in the past Change prednisone to Solu-Medrol 40 mg every 8 Continue ceftriaxone plus doxycycline Add Mucomyst, flutter valve Continue supportive care (2) Hypertension: Plan: Continue lisinopril And amlodipine 5 mg p.o. daily Hydralazine as needed added (3) Diabetes mellitus, type 2: Plan: A1c 8.9 in 2019 - repeat a1c in AM Hold home agents Glycemic consult placed for mgmt BSG AC HS (4) Atrial fibrillation: Plan: Rate control Continue sotalol twice daily Continue Eliquis for anticoagulation DVT Ppx: Eliquis Code status: FULL PCP: Visiting from [place], plans to return after holidays Dispo: Admitted to [facility] Admission and Anticipated Discharge Date Admission Date: March 09, 2021 Subjective Follow-up for parainfluenza virus pneumonia, hypoxia, etc. Seen sitting up in bed, not in distress Reports that he has some dyspnea today Still having cough, productive of white/clear sputum, no chest pain, no fevers or chills No abdominal pain, nausea vomiting No other symptoms Review of Systems Review of Systems: all noted and negative except for above Physical Exam Physical Exam: General- oriented x 3, not in distress, speaks in sentences with no effort or accessory muscle use Eyes- anicteric Neck- no JVD Lungs-positive mild wheezing at the bases, positive mild crackles on the right base, diminished but good air entry bilaterally Heart- normal rate, regular rhythm; no murmurs Abdomen- normal bowel sounds, nondistended, soft, nontender Extremities- no pretibial edema, no calf tenderness Neuro- alert, oriented x 3; no gross focal neurologic deficits Skin- warm & dry Results & Data Results & Data ([facility]) Vital Signs (Past 12 Hours) Vital Signs Pulse Pulse Resp BP BP Pulse Ox 03/10/21 17:30 65 17 175/88 H 95 03/10/21 17:00 63 24 164/100 H 94 03/10/21 16:30 63 23 95 03/10/21 16:00 63 14 181/98 H 94 03/10/21 15:33 71 22 90 03/10/21 15:00 63 24 95 03/10/21 14:42 62 24 167/85 H 95 03/10/21 14:30 61 26 H 167/85 H 93 03/10/21 14:00 61 13 94 03/10/21 13:30 63 26 H 96 03/10/21 13:28 63 16 120/68 97 03/10/21 13:10 76 22 90 03/10/21 12:30 63 24 95 03/10/21 12:00 63 20 96 03/10/21 11:30 59 L 27 H 95 03/10/21 11:00 61 25 H 95 03/10/21 10:30 64 29 H 94 03/10/21 10:00 63 18 94 03/10/21 09:40 66 20 160/81 H 93 03/10/21 09:30 62 18 96 03/10/21 09:00 66 25 H 95 03/10/21 08:30 62 18 98 03/10/21 08:00 61 19 98 03/10/21 07:31 58 L 22 163/88 H 99 all noted and reviewed including below
[2021-03-10] MEDS: methylPREDNISolone 40 MG in SYRINGE 0 ML IV SCH (19:02)
[2021-03-10] MEDS ORDERED: INSULIN GLARGINE SOLOSTAR 100 UNITS/ML 3 ML PEN SC SCH (21:00)
[2021-03-10] MEDS: INSULIN GLARGINE SOLOSTAR 100 UNITS/ML 3 ML PEN SC SCH (21:48)
[2021-03-11] MEDS: INSULIN ASPART 100 UNITS/ML 3 ML PEN SC SCH ×6 (00:05→22:05)
[2021-03-11] MEDS: methylPREDNISolone 40 MG in SYRINGE 0 ML IV SCH ×3 (02:26→17:57)
[2021-03-11 05:59] LABS: Hematocrit (blood only) 37.4 % (42-52); Hemoglobin 12.8 g/dL (14.0-18.0); Mean Corpuscular Hemoglobin 30.3 pg (25-34); Mean Corpuscular Hgb Conc 34.2 g/dL (32-36); Mean Corpuscular Volume 88.6 fL (80-100); Mean Platelet Volume 9.6 fL (7.4-10.4); Platelet Count 135 K/uL (130-400); RDW Coefficient of Variation 14.2 % (11.5-14.5); RDW Standard Deviation 46.1 fL (36.4-46.3); Red Blood Count 4.22 M/uL (4.7-6.1); White Blood Count 6.45 K/uL (4.8-10.8)
[2021-03-11 06:17] LABS: BUN Creatinine Ratio 23.9 (10-20); Calcium 8.8 mg/dl (8.5-10.1); Creatinine Clr Calc Pharmacy 84.6 ml/min; Est GFR (African American) 90.3 ml/min; Est GFR (Non-African American) 77.9 ml/min; Potassium 3.9 mmol/L (3.5-5.1)
[2021-03-11] MEDS: GABAPENTIN 300 MG CAP PO SCH ×2 (08:53→21:46)
[2021-03-11] MEDS: ATORVASTATIN 10 MG TAB PO SCH (08:53)
[2021-03-11] MEDS: SOTALOL HCL 80 MG TAB PO SCH ×2 (08:53→21:46)
[2021-03-11] MEDS: APIXABAN 5 MG TABLET PO SCH ×2 (08:53→21:47)
[2021-03-11] MEDS: EZETIMIBE 10 MG TABLET PO SCH (08:53)
[2021-03-11] MEDS: amLODIPine BESYLATE 5 MG TAB PO SCH (08:54)
[2021-03-11] MEDS: lisinopril 20 MG TAB PO SCH (08:54)
[2021-03-11] MEDS: guaiFENesin 600 MG TABCR PO SCH ×2 (08:56→21:46)
[2021-03-11] MEDS: TERAZOSIN HCL 5 MG CAP PO SCH (08:56)
[2021-03-11] MEDS: DOXYCYCLINE HYCLATE 100 MG CAP PO SCH ×2 (08:56→21:47)
[2021-03-11] MEDS ORDERED: INSULIN GLARGINE SOLOSTAR 100 UNITS/ML 3 ML PEN SC SCH (09:00)
[2021-03-11] MEDS: cefTRIAXone SODIUM 2,000 MG in DEXTROSE 5% 50 ML IV SCH (09:03)
--- NOTE | 2021-03-11 12:43 | Pharmacy Report ---
Pharmacy Glycemic Short Note 2 - Date of Service March 11, 2021 - Glycemic Short BSG Results (Last 24 hours): 03/10/21 03/10/21 03/10/21 17:20 21:40 23:50 Glucose POC Glucose 215 H 174 H 185 H 03/11/21 03/11/21 03/11/21 03:02 05:37 07:54 Glucose 186 H POC Glucose 187 H 201 H 03/11/21 11:26 Glucose POC Glucose 194 H OUTPATIENT ANTIDIABETIC REGIMEN: * Basaglar 50 units Q HS * Trulicity 0.75mg weekly * A1c = 7.1% 03/10/21 ASSESSMENT: 03/11: * Pt received total of 68 units of insulin yesterday: 35 units basal + 33 units bolus. * Pt was started on Solu Medrol 40 IV q8h yesterday evening. He did received Prednisone 40 mg PO x 1 yesterday AM. * Fasting BSG this AM trended up to 201 mg/dl due to steroid induced hyperglycemia. Added basal insulin in the AM as well using a dose of 0.2 mg/kg to cover the AM steroid effects. * Novolog carb ratio tightened to 4.5 also to offset steroid induced hyperglycemia. 03/10/21: * Type 2 diabetic admitted for parainfluenza viral pna * Recent A1c reflects good control with outpt regimen basal insulin + GLP1Ag * Fasting BSG 94 this AM w/ 35 units Lantus on board, will reduce dose another 25% to avoid fasting lows * Post-prandial BSGs controlled with current Novolog CF and CR - no change PLAN FOR INPATIENT GLYCEMIC CONTROL: * Hold outpatient Trulicity * Basal insulin: added AM dose for IV steroid * Lantus 18 units SQ QAM * Lantus 35 units SQ Q HS * Bolus insulin: tightened CR * NovoLog per scale ACHS or Q6hrs while NPO * Goal Range: Low 110 mg/dL - High 140 mg/dL * Correction Factor: 15 mg/dL/unit * Nutritional / Prandial insulin per carb ratio of 1 unit per 4.5 grams CHO consumed PLAN FOR DISCHARGE: * may resume home regimen of Basaglar and Trulicity on discharge given good control, if no contraindications present.
--- NOTE | 2021-03-11 17:21 | Hospitalist Progress Note ---
Date of Service March 11, 2021 Assessment & Plan (1) Pneumonia: Plan: Secondary to parainfluenza virus Covid screen x2 Biofire: (+) Parainfluenza 3 Repeat chest x-ray: Bilateral pneumonia, same as initial Patient adamantly declines nebulizer treatments at this have caused rapid A. fib in the past Change prednisone to Solu-Medrol 40 mg every 8--> wheezing is better today, weaned off oxygen--> taper tomorrow Continue ceftriaxone plus doxycycline Added Mucinex, flutter valve Continue supportive care (2) Hypertension: Plan: Continue lisinopril added amlodipine 5 mg p.o. daily for Better BP control Hydralazine as needed added (3) Diabetes mellitus, type 2: Plan: A1c 8.9 in 2019 - repeat a1c in AM Hold home agents Glycemic consult placed for mgmt BSG AC HS (4) Atrial fibrillation: Plan: Rate control Continue sotalol twice daily Continue Eliquis for anticoagulation DVT Ppx: Eliquis Code status: FULL PCP: Visiting from [place], plans to return after holidays Dispo: pending from [place], visiting family in [place] may need 2 step exercise test prior to discharge Admission and Anticipated Discharge Date Admission Date: March 09, 2021 Subjective ff up for parainfluenza pneumonia with hypoxia, etc seen resting in bed, comfortable on room air in good spirits states he feels somewhat better today weaned off oxygen still has some productive cough no chest pain no other symptoms Review of Systems Review of Systems: all noted and negative except for above Physical Exam Physical Exam: General- oriented x 3, not in distress, speaks in sentences with no effort or accessory muscle use Eyes- anicteric Neck- no JVD Lungs- mild rhonchi at the bases faint, intermittent wheezing Heart- normal rate, regular rhythm; no murmurs Abdomen- normal bowel sounds, nondistended, soft, nontender Extremities- no pretibial edema, no calf tenderness Neuro- alert, oriented x 3; no gross focal neurologic deficits Skin- warm & dry Results & Data Results & Data ([facility]) Vital Signs (Past 12 Hours) Vital Signs Temp Pulse Pulse Resp BP BP Pulse Ox 03/11/21 17:12 68 03/11/21 15:21 36.6 C 68 19 156/74 H 94 03/11/21 11:29 36.7 C 65 17 158/78 H 94 03/11/21 08:25 65 03/11/21 07:18 36.6 C 68 22 174/78 H 94 all noted and reviewed including below
[2021-03-11] MEDS: INSULIN GLARGINE SOLOSTAR 100 UNITS/ML 3 ML PEN SC SCH (22:05)
[2021-03-12] MEDS: INSULIN ASPART 100 UNITS/ML 3 ML PEN SC SCH ×6 (00:23→20:34)
[2021-03-12] MEDS: methylPREDNISolone 40 MG in SYRINGE 0 ML IV SCH ×3 (02:55→17:01)
[2021-03-12 07:11] LABS: Creatinine Clr Calc Pharmacy 86.3 ml/min; Est GFR (African American) 91.5 ml/min; Est GFR (Non-African American) 78.9 ml/min
[2021-03-12] MEDS: INSULIN GLARGINE SOLOSTAR 100 UNITS/ML 3 ML PEN SC SCH ×2 (08:30→20:37)
[2021-03-12] MEDS: cefTRIAXone SODIUM 2,000 MG in DEXTROSE 5% 50 ML IV SCH (08:34)
[2021-03-12] MEDS: GABAPENTIN 300 MG CAP PO SCH ×2 (08:36→20:14)
[2021-03-12] MEDS: SOTALOL HCL 80 MG TAB PO SCH ×2 (08:37→20:15)
[2021-03-12] MEDS: amLODIPine BESYLATE 5 MG TAB PO SCH (08:37)
[2021-03-12] MEDS: TERAZOSIN HCL 5 MG CAP PO SCH (08:37)
[2021-03-12] MEDS: guaiFENesin 600 MG TABCR PO SCH ×2 (08:39→20:15)
[2021-03-12] MEDS: EZETIMIBE 10 MG TABLET PO SCH (08:40)
[2021-03-12] MEDS: DOXYCYCLINE HYCLATE 100 MG CAP PO SCH ×2 (08:40→20:15)
[2021-03-12] MEDS: ATORVASTATIN 10 MG TAB PO SCH (08:41)
[2021-03-12] MEDS: APIXABAN 5 MG TABLET PO SCH ×2 (08:41→20:15)
[2021-03-12] MEDS: lisinopril 20 MG TAB PO SCH (08:41)
--- NOTE | 2021-03-12 23:55 | Hospitalist Progress Note ---
Date of Service March 12, 2021 Assessment & Plan (1) Pneumonia: Plan: Present on admission with SOB and cough Secondary to parainfluenza virus Covid screen x2 Biofire: (+) Parainfluenza 3 CTA chest showed no CTA evidence for pulmonary embolus. Extensive groundglass opacities are present throughout both lungs characteristic of a viral type pneumonitis and Covid 19 pneumonia. CXR showed interstitial and alveolar opacities bilaterally. Patient adamantly declined nebulizer treatments due to previous history of rapid A. fib after neb treatment On IV solumedrol, will transition to prednisone On IV ceftriaxone plus doxycycline, will discharge on Doxycycline Has been walking around with no distress Continue flutter valve Saturated well on RA (2) Hypertension: Plan: Continue lisinopril added amlodipine 5 mg p.o. daily for Better BP control Continue monitor BP (3) Diabetes mellitus, type 2: Plan: Most recent Hba1c 7.1 on 03/02 Will resume oral agents on discharge Glycemic consult placed for mgmt Continue monitor BS (4) Atrial fibrillation: Plan: Rate control Continue sotalol twice daily Continue Eliquis for anticoagulation DVT Ppx: Eliquis Code status: FULL PCP: Visiting from [place], plans to return after holidays Dispo: from [place], visiting family in [place] Admission and Anticipated Discharge Date Admission Date: March 09, 2021 Subjective Pt was seen for follow up for parainfluenza Sitting at the edge of the bed with no distress Pt said that last night he slept well He said that his cough is getting better He has been saturated well on RA Denies any chest pain, palpitation, dizziness and SOB Review of Systems Review of Systems: All systems reviewed & are unremarkable except as noted in Subjective Physical Exam Physical Exam: General- No acute distress Head- atraumatic Eyes- PERRL, EOMI, ENT- oropharynx clear Neck- supple, no JVD Lungs- faint wheezing Heart- regular rhythm; no murmur Abdomen- normal bowel sounds, soft, nontender Extremities- no calf tenderness Neuro- alert, oriented x 3; PERRL, EOMI; no facial palsy; no dysarthria Skin- warm & dry Results & Data Results & Data ([facility]) Vital Signs (Past 12 Hours) Vital Signs Temp Pulse Resp BP Pulse Ox 03/12/21 23:31 36.6 C 58 L 18 159/70 H 94 03/12/21 20:24 36.5 C 64 18 175/82 H 92 03/12/21 19:30 36.6 C 67 18 177/88 H 94 03/12/21 14:59 36.6 C 58 L 20 154/74 H 94 03/12/21 12:05 36.5 C 60 20 161/77 H 94
[2021-03-13] MEDS: methylPREDNISolone 40 MG in SYRINGE 0 ML IV SCH ×2 (02:30→08:50)
[2021-03-13] MEDS: INSULIN ASPART 100 UNITS/ML 3 ML PEN SC SCH ×2 (08:00→12:07)
[2021-03-13] MEDS: cefTRIAXone SODIUM 2,000 MG in DEXTROSE 5% 50 ML IV SCH (08:04)
[2021-03-13] MEDS: ATORVASTATIN 10 MG TAB PO SCH (08:08)
[2021-03-13] MEDS: SOTALOL HCL 80 MG TAB PO SCH (08:09)
[2021-03-13] MEDS: TERAZOSIN HCL 5 MG CAP PO SCH (08:09)
[2021-03-13] MEDS: EZETIMIBE 10 MG TABLET PO SCH (08:09)
[2021-03-13] MEDS: amLODIPine BESYLATE 5 MG TAB PO SCH (08:09)
[2021-03-13] MEDS: lisinopril 20 MG TAB PO SCH (08:09)
[2021-03-13] MEDS: guaiFENesin 600 MG TABCR PO SCH (08:10)
[2021-03-13] MEDS: APIXABAN 5 MG TABLET PO SCH (08:11)
[2021-03-13] MEDS: GABAPENTIN 300 MG CAP PO SCH (08:11)
[2021-03-13] MEDS: DOXYCYCLINE HYCLATE 100 MG CAP PO SCH (08:11)
[2021-03-13] MEDS: INSULIN GLARGINE SOLOSTAR 100 UNITS/ML 3 ML PEN SC SCH (08:57)
--- NOTE | 2021-03-13 12:43 | Discharge Summary ---
Date of Service March 13, 2021 Admission HPI Per Admitting Provider This is a 75yo M with a PMH of atrial fibrillation on anticoagulation, type 2 diabetes, hypertension and other medical problems listed below who presents with shortness of breath over the past 5 days. Patient lives in [place] but has been in town for 3 weeks visiting family. In addition to feeling SOB, patient has been experiencing productive cough and sinus drainage. Has had sweats and chills but denies chico fever or hemoptysis. No wheezing. No chest pain, abdominal pain, dysuria or constipation. Endorses poor appetite over the past 2 days but no nausea or vomiting. Endorses large bowel movement this morning. Patient is taking all medications as prescribed but did not take morning doses. Received both doses of Covid vaccination. Receives all medical care in [place]. Admission Exam Per Admitting Provider oriented x 3 , not in distress, speaks in sentences with no effort nor accessory muscle use normal rate, regular rhythm, no murmurs Positive mild wheezing at the bases, no crackles non distended, soft, nontender no bipedal edema, erythema, warmth no neuro deficits Principal Diagnosis Pneumonia: Parainfluenza virus Hypertension: Diabetes mellitus, type 2: Atrial fibrillation Discharge Exam General- No acute distress Head- atraumatic Eyes- PERRL, EOMI, ENT- oropharynx clear Neck- supple, no JVD Lungs- faint wheezing Heart- regular rhythm; no murmur Abdomen- normal bowel sounds, soft, nontender Extremities- no calf tenderness Neuro- alert, oriented x 3; PERRL, EOMI; no facial palsy; no dysarthria Skin- warm & dry Discharge Data Allergies Allergy/AdvReac Type Severity Reaction Status Date / Time No Known Allergies Allergy Verified 03/09/21 13:21 Consultations 03/09/21 13:58 ED Decision to Admit Stat Ordered Studies 03/09/21 13:24 CT angio chest PE protocol Stat XR chest 1V portable CLINICAL HISTORY: Follow-up suspected Covid pneumonia. COMPARISON STUDY: 03/09/2021 an interval CTA chest from 03/01/2021 TECHNIQUE: 1 view of the chest FINDINGS: Single frontal view of the chest demonstrates the cardiomediastinal silhouette to be within normal limits. Compared to the previous examination, there is a deeper inspiratory effort with decreased prominence of interstitial and alveolar opacities bilaterally. There is no evidence for pleural effusion. There is no evidence for vascular congestion. There is no acute osseous pathology. IMPRESSION: Deeper inspiratory effort with decreased prominence of the previously identified interstitial and alveolar opacities bilaterally. Compared to the interval CT examination, the findings are again characteristic of a viral type pneumonitis and Covid 19 pneumonia. ACT 112: Negative or not required by law. Electronically signed by: Jonathan Seth M.D. 03/10/2021 4:51 PM Dictated:03/10/21 1648 Transcribed: 03/10/211647 CT angio chest PE protocol CLINICAL HISTORY: Shortness of breath and cough. Evaluate for pulmonary embolus. Abnormal chest radiograph COMPARISON STUDY: Portable chest from 03/09/2021 CT DOSE: 638.28 mGy.cm TECHNIQUE: CT Angio of the chest was performed.followed by image post processing with coronal, and sagittal MIP reformats. Contrast Volume: Optiray 320, 120 ml FINDINGS: Vasculature: There is homogeneous perfusion of the pulmonary vasculature bilaterally. No intraluminal filling defects or evidence for pulmonary embolus is seen. Airway: The airway is clear. No endobronchial lesion is identified. Lungs: Extensive groundglass opacities are present throughout both lungs characteristic of a viral type pneumonitis and Covid 19 pneumonia. The lungs are otherwise clear of confluent alveolar opacities, air bronchograms or pulmonary nodules. Pleura: There is no evidence for pleural effusion. There is no evidence for pneumothorax. Mediastinum: There is no evidence for pathologic adenopathy. The heart size is within normal limits. There is mild coronary artery calcification. The thoracic aorta is within normal limits. There is no evidence for pericardial effusion. Upper abdomen:The adrenal glands are normal bilaterally. There is a small hiatal hernia with mucosal thickening. There is cholelithiasis with no CT evidence for acute cholecystitis. Osseous structures: There is no acute osseous pathology. Degenerative changes are seen within the spine. Impression: 1. No CTA evidence for pulmonary embolus. 2. Extensive groundglass opacities are present throughout both lungs characteristic of a viral type pneumonitis and Covid 19 pneumonia. 3. Small hiatal hernia and cholelithiasis. ACT 112: Negative or not required by law. Electronically signed by: Jonathan Seth M.D. 03/09/2021 2:52 PM Dictated:03/09/21 1448 Transcribed: 03/09/218 XR chest 1V portable CLINICAL HISTORY: SOB. COMPARISON STUDY: 11/09/2019 TECHNIQUE: 1 view of the chest FINDINGS: Single frontal view of the chest demonstrates the cardiomediastinal silhouette to be within normal limits. Patchy interstitial and alveolar opacities are present bilaterally. The findings are most characteristic of a viral type pneumonitis. Covid 19 pneumonia should be excluded. There is no evidence for pleural effusion. There is no evidence for vascular congestion. There is no acute osseous pathology. IMPRESSION: Patchy interstitial and alveolar opacities bilaterally characteristic of a viral type pneumonitis and probable early Covid 19 pneumonia. ACT 112: Negative or not required by law. Electronically signed by: Jonathan Seth M.D. 03/09/2021 12:53 PM Dictated:03/09/21 1252 Transcribed: 03/09/21 1252 Hospital Course (1) Pneumonia: Present on admission with SOB and cough Secondary to parainfluenza virus Covid screen x2 [employer]: (+) Parainfluenza 3 CTA chest showed no CTA evidence for pulmonary embolus. Extensive groundglass opacities are present throughout both lungs characteristic of a viral type pneumonitis and Covid 19 pneumonia. CXR showed interstitial and alveolar opacities bilaterally. Patient adamantly declined nebulizer treatments due to previous history of rapid A. fib after neb treatment On IV solumedrol, will transition to prednisone On IV ceftriaxone plus doxycycline, will discharge on Doxycycline Has been walking around with no distress Continue flutter valve Saturated well on RA (2) Hypertension: Continue lisinopril added amlodipine 5 mg p.o. daily for Better BP control Continue monitor BP (3) Diabetes mellitus, type 2: Most recent Hba1c 7.1 on 03/02 Will resume oral agents on discharge Glycemic consult placed for mgmt Continue monitor BS (4) Atrial fibrillation: Rate control Continue sotalol twice daily Continue Eliquis for anticoagulation DVT Ppx: Eliquis Code status: FULL PCP: Visiting from [place], plans to return after holidays Dispo: from [place], visiting family in [place] Total Time Total Time Spent Total Time Spent (In Minutes): 35 minutes Discharge Plan Discharge Items Patient Disposition: Home - Self-Care Reason For Visit: PNA, PUI Discharge Diagnosis: Pneumonia: Parainfluenza virus Hypertension: Diabetes mellitus, type 2: Atrial fibrillation Condition on Discharge: Fair Activity: Resume your previous activity Non-emergency contact: Primary Care Provider Call non-emergency contact if: you have any medication questions Follow-up/Referrals: Latonia Ingram MD [Hospitalist] - (Date & Time 03/19/2021 11:20 AM Provider Latonia Ingram MD [facility] ) Diet: Carb Consistent or DM2 Addtl Attending Provider Instructions: Follow up with primary care provider 03/19/2021 @ 11:20 AM Latonia Ingram MD [facility] Continue monitor your blood pressure Continue flutter valve Seek medical attention if your symptoms worsening or develop any shortness of breath Continue to wear your mask and practicing social distance Pending Studies at Discharge: No Stand-Alone Forms: My [employer], Smoking Cessation Medications and DC Order Prescriptions: New doxycycline hyclate 100 mg Capsule 100 mg PO BID Qty: 3 RF: 0 amlodipine [Norvasc] 5 mg Tablet 5 mg PO QAM Qty: 30 RF: 0 prednisone 20 mg tablet 20 mg PO UD Qty: 6 RF: 0 Continued atorvastatin [Lipitor] 10 mg tablet 10 mg PO DAILY RF: 0 sotalol 120 mg tablet 60 mg PO BID RF: 0 gabapentin 300 mg capsule 300 mg PO BID RF: 0 lisinopril 40 mg tablet 20 mg PO DAILY RF: 0 terazosin 10 mg capsule 10 mg PO DAILY RF: 0 ezetimibe [Zetia] 10 mg tablet 10 mg PO DAILY RF: 0 Basaglar KwikPen U-100 Insulin 100 unit/mL (3 mL) insulin pen 50 unit SUBCUT QPM RF: 0 Eliquis 5 mg tablet 5 mg PO BID RF: 0 Trulicity 0.75 mg/0.5 mL pen injector 0.75 mg SUBCUT UD RF: 0 Discharge Orders: Discharge Order (Routine); Ordered 03/13/21 Ordered By: Natalya Chu/Other Patient Handouts: High Blood Sugar (Hyperglycemia), Hypoglycemia ( Low Blood Sugar), Managing Type 2 Diabetes Admission Data Admit Date/Time: 03/09/21 15:22 Attending Provider: Natalya Mckeon Admit Provider: Jung Crook Primary Care Provider: PCP,NO Other Interventions: Discharge Summary Assessment (RN) Last Done: 03/13/21 12:52
== END 2021-03-13 16:49 | disposition home or self-care (01) | DRG 195 ==
LOC: ED 10:28 → EDINP 15:22 → SUATTDRO 15:22 → 2S 03-10 23:43

== ENCOUNTER 2024-01-11 18:55 | Inpatient (IN) ==
[2024-01-11 19:41] LABS: Basophils # (auto) 0.02 K/uL (0.00-0.20); Basophils % (auto) 0.2 %; Eosinophils # (auto) 0.07 K/uL (0.00-0.50); Eosinophils % (auto) 0.7 %; Hematocrit (blood only) 36.2 % (42.0-52.0); Hemoglobin 12.3 g/dl (14.0-18.0); Immature Granulocytes # (auto) 0.04 K/uL (0.01-0.20); Immature Granulocytes % (auto) 0.4 %; Lymphocytes # (auto) 1.57 K/uL (1.20-3.40); Lymphocytes % (auto) 15.9 %; Mean Corpuscular Hemoglobin 30.4 pg (25.0-34.0); Mean Corpuscular Volume 89.6 fL (80.0-100.0); Mean Platelet Volume 9.9 fL (9.4-12.4); Monocytes # (auto) 0.74 K/uL (0.11-0.59); Monocytes % (auto) 7.5 %; Neutrophils # (auto) 7.41 K/uL (1.40-6.50); Neutrophils % (auto) 75.3 %; Platelet Count 189 K/uL (130-400); RDW Coefficient of Variation 13.5 % (11.5-14.5); RDW Standard Deviation 44.1 fL (36.4-46.3); Red Blood Count 4.04 M/uL (4.70-6.10); White Blood Count 9.85 K/ul (4.8-10.8)
[2024-01-11 19:54] LABS: Albumin Globulin Ratio 1.8 (0.9-2); Albumin Level 4.1 gm/dl (3.4-5.0); BUN Creatinine Ratio 17.5 (10-20); Calcium 9.2 mg/dl (8.6-10.3); Creatinine Clr Calc Pharmacy 70.2 ml/min; Est GFR (African American) 79.1 ml/min; Est GFR (Non-African American) 68.3 ml/min; Globulin 2.3 gm/dl (2.5-4.0); Magnesium 2.3 mg/dl (1.7-2.4); Potassium 3.9 mmol/L (3.5-5.1); Total Protein 6.4 gm/dl (6.0-8.3)
[2024-01-11 20:02] LABS: Troponin I High Sensitivity 5.3 pg/ml (0-20)
[2024-01-11 20:11] LABS: Appearance Urine Cloudy (Clear); Bacteria Urine Automated None Seen (None Seen); Bilirubin Urine Negative (Negative); Blood Urine 1+ (Negative); Color Urine Yellow; Epithelial Cell Urine Auto 0-2 /hpf (0-2); Glucose Urine UA Negative (Negative); Ketones Urine Negative (Negative); Leukocyte Esterase Urine Negative (Negative); Nitrite Urine Negative (Negative); Protein Urine Negative (Negative); RBC Urine Automated >20 /hpf (0-2); Specific Gravity Urine 1.014 (1.000-1.030); Thyroid Stimulating Hormone 6.817 uIu/ml (0.300-4.500); Urobilinogen Urine Negative (Negative); WBC Urine Automated 0-5 /hpf (0-5)
[2024-01-11] MEDS: OPTIRAY 320 125ml IV ONE (20:33)
[2024-01-11 20:47] LABS: T4 Free Thyroxine 1.11 ng/dl (0.61-1.60)
[2024-01-11] MEDS: KETOROLAC TROMETHAMINE 15 MG/ML VIAL IV ONE (20:53)
[2024-01-11] MEDS: CYCLOBENZAPRINE HCL 10 MG TAB PO STA (20:53)
--- NOTE | 2024-01-11 21:06 | CT Scan Report ---
Exam(s): CTA CHEST IV Amt: 107 ml opti 320 EXAM: CT Angiography Chest With Intravenous Contrast CLINICAL HISTORY: Reason for exam: PE, Recent hip surgery. TECHNIQUE: Axial computed tomographic angiography images of the chest with intravenous contrast. CTDI is 39 mGy and DLP is 797.14 mGy-cm. Automated exposure control was utilized for the study. A dose lowering technique was utilized adhering to the principles of ALARA. MIP reconstructed images were created and reviewed. COMPARISON: No relevant prior studies available. FINDINGS: Pulmonary arteries: No pulmonary embolism. Aorta: No acute findings. Normal caliber. No dissection. Lungs: Atelectasis within the left lower lobe and lingula. Scarring in the anterior left upper lobe. Pleural space: Trace pleural effusions. Heart: Pericardial effusion measuring up to 1.5 cm. Bones/joints: No acute fracture. Soft tissues: Unremarkable. Lymph nodes: Unremarkable. Gallbladder and bile ducts: Cholelithiasis. IMPRESSION: 1. No pulmonary embolism. 2. Moderate pericardial effusion. 3. Trace pleural effusions. Electronically signed by: Alistair Ellis MD 01/11/24 21:05 PM
--- NOTE | 2024-01-11 21:50 | Emergency Department Note ---
Impression & Plan Syncope, cardiogenic, Prolonged QT interval, Acute pericardial effusion, Atrial fibrillation with rapid ventricular response ED Provider Note NAME: ASHLEY MCCARTNEY AGE: 78 SEX: M : 1945 ARRIVES VIA: Ambulance INFORMANT: Patient, ED PROVIDER(S): Adelina Peacock MD CHIEF COMPLAINT: Syncope HPI: This is a an 78-year-old male presenting for syncope. Patient was taking his meds time medications and began feeling lightheaded and "woozy ". Patient then passed out. He was nauseous prior and then had urinary incontinence when he was unconscious. He was after approximately 1 to 3 minutes as per family. He recently had a right hip replacement done. He has stopped his Eliquis for 5 days prior to the surgery and then started again the day of surgery this was done last Wednesday. He was discharged in stable condition. He otherwise notes no current fever, nausea or vomiting. He does note that his right hip is in pain and the muscles will spasm. Otherwise he feels somewhat short of breath. ROS: See above HPI for pertinent positives & negatives. A total of 10 systems reviewed and were otherwise negative. PAST MEDICAL HISTORY: See Below PAST SURGICAL HISTORY: See Below FAMILY HISTORY: See Below SOCIAL HISTORY: See Below HOME MEDICATIONS: See Below ALLERGIES: See Below VITALS: See Below PHYSICAL EXAMINATION: General: resting comfortably in no acute distress Head: Normocephalic and atraumatic Eyes: Normal inspection, extraocular muscles intact Ear, nose, throat: Normal external exam Neck: Normal range of motion Respiratory: lungs clear to auscultation bilaterally Cardiovascular: Regular rate/rhythm, no murmur GI: soft, nontender, no guarding or rebound Extremities: nontender, moves all extremities Neuro: The patient awake and alert, appropriately conversive, no focal deficits, symmetric faces Skin: Warm, dry, and intact MEDICAL DECISION MAKING: This is an 78-year-old male presenting for syncope. Patient had syncopal episode earlier this evening. Patient stopped medication, Eliquis for 5 days for the surgery. Patient postsurgical now making risk of PE more likely. Will do CTA PE protocol. Will get basic blood work, chest x-ray, EKG. -Bloodwork is reviewed showing no significant leukocytosis, anemia, electrolyte or creatinine abnormality -EKG reviewed as below showing prolonged QT again concerning for syncope. Will give magnesium 2 g -Urinalysis revealed no signs of UTI -CTA reveals a moderate pericardial effusion but no pulmonary embolism -Patient does not have signs of cardiac tamponade as he has a stable blood pressure in the 150s. He is somewhat tachycardic with A-fib RVR. Due to his syncopal episode, A-fib and pericardial effusion, will admit for further workup and rule out of cardiac syncope. Differential diagnosis: Cardiogenic syncope, pulmonary embolism, dissection, vasovagal, pain response ER treatment provided: See below Independent History obtained from: Daughter Diagnostics interpreted by me: ECG: ECG independently interpreted by me with atrial fibrillation at a rate of 107, normal axis, normal TN, normal QRS, prolonged QTc no ST segment elevations consistent with STEMI criteria Cardiac Monitoring: An order was placed for continuous cardiac monitoring. The monitor shows a rate of 105 with atrial fibrillation rhythm. Laboratory studies: As stated above and show below. Imaging studies: See below. Past Med/Surg History Problem List (Updated 01/11/24 @ 22:11 by Adelina Peacock MD) Atrial fibrillation with rapid ventricular response (Acute) Acute pericardial effusion (Acute) Prolonged QT interval (Acute) Syncope, cardiogenic (Acute) CAD (coronary artery disease) s/p stent per records Neurogenic claudication due to lumbar spinal stenosis Medical History Atrial fibrillation Reason for eliquis--follows with Dr Deras in [place]--pt states that since he had his ablation in 2007 he has not been in a-fib CAD (coronary artery disease) s/p stent per records Chronic back pain Diabetes mellitus, type 2 High cholesterol Hypertension On anticoagulant therapy eliquis daily Surgical History History of colonoscopy Hx of vasectomy History of tonsillectomy History of cardiac radiofrequency ablation 2007 in [place] History of left hip replacement 2017 Family History Other Heart disease No family history of adverse response to anesthesia Social History Smoking Status: Never smoker Tobacco Type: Cigarettes Second Hand Exposure: No; Do You Dip or Chew Tobacco: No; Hx Alcohol Use: No Hx Substance Use: No Preferred Language: Salvadorean Communication Ability: Effective [employer] Required: No Beliefs That Will Affect Care: None Current Living Situation: Alone Current Living Situation Comment: lives with daughter and son-in-law Feels Safe at Home: Yes Assistive Devices: Glasses Allergies Allergies Allergy/AdvReac Type Severity Reaction Status Date / Time No Known Allergies Allergy Verified 03/09/21 13:21 Home Meds Home Medications Medication Instructions Recorded Confirmed apixaban 5 mg tablet (Eliquis) 5 mg PO BID 11/09/19 03/09/21 atorvastatin 10 mg tablet (Lipitor) 10 mg PO DAILY 11/09/19 03/09/21 ezetimibe 10 mg tablet (Zetia) 10 mg PO DAILY 11/09/19 03/09/21 gabapentin 300 mg capsule 300 mg PO BID 11/09/19 03/09/21 insulin glargine 100 unit/mL (3 50 unit subcut QPM 11/09/19 03/09/21 mL) subcutaneous pen (Basaglar KwikPen U-100 Insulin) lisinopril 40 mg tablet 20 mg PO DAILY 11/09/19 03/09/21 sotalol 120 mg tablet 60 mg PO BID 11/09/19 03/09/21 terazosin 10 mg capsule 10 mg PO DAILY 11/09/19 03/09/21 dulaglutide 0.75 mg/0.5 mL 0.75 mg subcut UD 03/09/21 03/09/21 subcutaneous pen injector (Trulicity) Previous Rx's Medication Instructions Recorded amlodipine 5 mg tablet (Norvasc) 5 mg PO QAM #30 tabs 03/13/21 doxycycline hyclate 100 mg capsule 100 mg PO BID #3 caps 03/13/21 prednisone 20 mg tablet 20 mg PO UD #6 tabs 03/13/21 Results & Data (ED) Vital Signs Vital Signs - 24 hr 01/11/24 19:09 01/11/24 19:14 01/11/24 19:29 Temperature 36.5 C Temperature Source Temporal Artery Scan Pulse Rate 106 H 107 H 106 H Pulse Rate [Finger] Pulse Rhythm Regular Regular Pulse Rhythm [Finger] Pulse Strength Normal Pulse Strength [Finger] Respiratory Rate 20 20 Respiratory Effort / Characteristics Non-Labored Spontaneous Respiratory Depth Normal Blood Pressure 125/87 Blood Pressure [Left Arm] Blood Pressure Mean 99 Blood Pressure Mean [Left Arm] Pulse Oximetry 97 97 Oxygen Delivery Method Room Air Room Air Oxygen Flow Rate Sepsis Recent Fever Within 48 Hours No Sepsis New/Unexplained Change in Mental Status N/A Sepsis Action Taken by Nursing No Action Required Oxygen Flow Rate - Titration Pulse Oximetry Post Tiitration 01/11/24 20:12 01/11/24 20:13 Temperature Temperature Source Pulse Rate Pulse Rate [Finger] 105 H Pulse Rhythm Pulse Rhythm [Finger] Regular Pulse Strength Pulse Strength [Finger] Normal Respiratory Rate 24 Respiratory Effort / Characteristics Non-Labored Spontaneous Respiratory Depth Normal Blood Pressure Blood Pressure [Left Arm] 152/107 H Blood Pressure Mean Blood Pressure Mean [Left Arm] 122 Pulse Oximetry 96 92 Oxygen Delivery Method Nasal Cannula Room Air Nasal Cannula Oxygen Flow Rate 2 0 Sepsis Recent Fever Within 48 Hours Sepsis New/Unexplained Change in Mental Status Sepsis Action Taken by Nursing Oxygen Flow Rate - Titration 2 Pulse Oximetry Post Tiitration 96 Laboratory Data 01/11/24 19:07 01/11/24 19:07 Lab Results 01/11/24 Range/Units 19:07 WBC 9.85 (4.8-10.8) K/ul RBC 4.04 L (4.70-6.10) M/uL Hgb 12.3 L (14.0-18.0) g/dl Hct 36.2 L (42.0-52.0) % MCV 89.6 (80.0-100.0) fL MCH 30.4 (25.0-34.0) pg MCHC 34.0 (32.0-36.0) g/dL RDW Std Deviation 44.1 (36.4-46.3) fL RDW Coeff of Marcelo 13.5 (11.5-14.5) % Plt Count 189 (130-400) K/uL MPV 9.9 (9.4-12.4) fL Immature Gran % (Auto) 0.4 % Neut % (Auto) 75.3 % Lymph % (Auto) 15.9 % [place] % (Auto) 7.5 % Eos % (Auto) 0.7 % Baso % (Auto) 0.2 % Neut # (Auto) 7.41 H (1.40-6.50) K/uL Lymph # (Auto) 1.57 (1.20-3.40) K/uL [place] # (Auto) 0.74 H (0.11-0.59) K/uL Eos # (Auto) 0.07 (0.00-0.50) K/uL Baso # (Auto) 0.02 (0.00-0.20) K/uL Immature Gran # (Auto) 0.04 (0.01-0.20) K/uL Sodium 140 (136-145) mmol/L Potassium 3.9 (3.5-5.1) mmol/L Chloride 104 (98-107) mmol/L Carbon Dioxide 28 (21-32) mmol/L Anion Gap 8 (3-11) BUN 18 (6-23) mg/dl Creatinine 1.03 (0.6-1.4) mg/dl Est Cr Clr Drug Dosing 70.2 ml/min Est GFR ( Amer) 79.1 ml/min Est GFR (Non-Af Amer) 68.3 ml/min BUN/Creatinine Ratio 17.5 (10-20) Glucose 125 H (70-99(Fasting)) mg/dl Calcium 9.2 (8.6-10.3) mg/dl Magnesium 2.3 (1.7-2.4) mg/dl Total Bilirubin 2.0 H (0.2-1.0) mg/dl AST 18 (13-39) U/L ALT 21 (7-52) U/L Alkaline Phosphatase 49 (34-104) U/L Troponin I High Sens 5.3 (0-20) pg/ml Total Protein 6.4 (6.0-8.3) gm/dl Albumin 4.1 (3.4-5.0) gm/dl Globulin 2.3 L (2.5-4.0) gm/dl Albumin/Globulin Ratio 1.8 (0.9-2) TSH 6.817 H (0.300-4.500) uIu/ml Free T4 1.11 (0.61-1.60) ng/dl Urine Color Yellow Urine Appearance Cloudy A (Clear) Urine pH 8.0 H (4.5-7.5) Ur Specific [place] 1.014 (1.000-1.030) Urine Protein Negative (Negative) Urine Glucose (UA) Negative (Negative) Urine Ketones Negative (Negative) Urine Blood 1+ H (Negative) Urine Nitrite Negative (Negative) Urine Bilirubin Negative (Negative) Urine Urobilinogen Negative (Negative) Ur Leukocyte Esterase Negative (Negative) Urine WBC (Auto) 0-5 (0-5) /hpf Urine RBC (Auto) >20 H (0-2) /hpf U Hyaline Cast (Auto) 3-5 H (0-2) /lpf U Epithel Cells (Auto) 0-2 (0-2) /hpf Urine Bacteria (Auto) None Seen (None Seen) Administered Medications Discontinued Medications Cyclobenzaprine HCl (Cyclobenzaprine Hcl 10 Mg Tab) 10 mg PO NOW STA Stop: 01/11/24 20:51 Last Admin: 01/11/24 20:53 Dose: 10 mg Documented By: SALVADOR Ioversol (Optiray 320 125ml) 107 ml IV ONCE ONE Stop: 01/11/24 20:34 Last Admin: 01/11/24 20:33 Dose: 107 ml Documented By: VIKI Ketorolac Tromethamine (Ketorolac Tromethamine 15 Mg/Ml Vial) 15 mg IV NOW ONE Stop: 01/11/24 20:51 Last Admin: 01/11/24 20:53 Dose: 15 mg Documented By: SALVADOR Imaging Data Radiologist's Impression: Chest CTA 01/11/24 19:23 Exam(s): CTA CHEST IV Amt: 107 ml opti 320 EXAM: CT Angiography Chest With Intravenous Contrast CLINICAL HISTORY: Reason for exam: PE, Recent hip surgery. TECHNIQUE: Axial computed tomographic angiography images of the chest with intravenous contrast. CTDI is 39 mGy and DLP is 797.14 mGy-cm. Automated exposure control was utilized for the study. A dose lowering technique was utilized adhering to the principles of ALARA. MIP reconstructed images were created and reviewed. COMPARISON: No relevant prior studies available. FINDINGS: Pulmonary arteries: No pulmonary embolism. Aorta: No acute findings. Normal caliber. No dissection. Lungs: Atelectasis within the left lower lobe and lingula. Scarring in the anterior left upper lobe. Pleural space: Trace pleural effusions. Heart: Pericardial effusion measuring up to 1.5 cm. Bones/joints: No acute fracture. Soft tissues: Unremarkable. Lymph nodes: Unremarkable. Gallbladder and bile ducts: Cholelithiasis. IMPRESSION: 1. No pulmonary embolism. 2. Moderate pericardial effusion. 3. Trace pleural effusions. Electronically signed by: Alistair Ellis MD 01/11/24 21:05 PM Discharge Plan Visit Data Chief Complaint: Syncope Stated Complaint: SYNCOPE ED Provider: Adelina Peacock Discharge Problem: Syncope, cardiogenic, Prolonged QT interval, Acute pericardial effusion, Atrial fibrillation with rapid ventricular response Forms Stand Alone Forms: [facility] Prescriptions Prescriptions: No Action atorvastatin [Lipitor] 10 mg tablet 10 mg PO DAILY sotalol 120 mg tablet 60 mg PO BID gabapentin 300 mg capsule 300 mg PO BID lisinopril 40 mg tablet 20 mg PO DAILY terazosin 10 mg capsule 10 mg PO DAILY ezetimibe [Zetia] 10 mg tablet 10 mg PO DAILY Basaglar DavidikPen U-100 Insulin 100 unit/mL (3 mL) insulin pen 50 unit SUBCUT QPM Eliquis 5 mg tablet 5 mg PO BID Trulicity 0.75 mg/0.5 mL pen injector 0.75 mg SUBCUT UD Rx Instructions: Fridays doxycycline hyclate 100 mg Capsule 100 mg PO BID Qty: 3 0RF amlodipine [Norvasc] 5 mg Tablet 5 mg PO QAM Qty: 30 0RF prednisone 20 mg tablet 20 mg PO UD Qty: 6 0RF Rx Instructions: take 2 tablets for 2 days and 1 tablet for 2 days Referrals Referrals: Ady Edwards DO [Primary Care Provider] -
[2024-01-11] MEDS: MAGNESIUM SULFATE / D5W 1 GM/100 ML BAG IV SCH (22:11)
[2024-01-11] MEDS: ACETAMINOPHEN 1,000 MG/100 ML VIAL IV STA (22:44)
[2024-01-11] MEDS: METOPROLOL TARTRATE 1 MG/ML VIAL IV STA (22:44)
--- NOTE | 2024-01-11 23:50 | History & Physical Report ---
Date of Service January 11, 2024 Assessment & Plan (1) Atrial fibrillation with rapid ventricular response: Plan: Rapid A-fib syncope Ro orthostasis ? Possibly from pericardial effusion CAD hypertension, elevated hyperlipidemia, on statin Rx DM2, reasonable control as of last hemoglobin A1c of 7.1 last 2020 chronic anemia, hemoglobin at baseline recent right hip surgery past tobacco abuse Admit to PCU Lopressor for rate control for now Hold sotalol given marked QTc prolongation TTE, Cardiology consult Re: Pericardial effusion Hold Eliquis, n.p.o. in anticipation of procedure ISS BG goal 1 10-1 40, update hemoglobin A1c Need to obtain patient's home medication list from family as patient unsure of what he takes. Inaccurate medication reconciliation done at the ER. DVT prophylaxis. SCDs while Eliquis on hold Full code Text document was generated using [employer] voice recognition software. It may contain grammatical or spelling errors. Kindly contact undersigned for clarification of any documentation item in question. History of Present Illness Chief Complaint: Syncope Primary Care Provider: Ady Edwards, History obtained from patient and records. Medical history significant for CAD, A-fib status post ablation on Eliquis, hypertension, hyperlipidemia, DM2, chronic anemia (baseline hemoglobin of 12), recent right hip surgery, past tobacco abuse. Last confinement March 2021 for prior influenza pneumonia. Patient underwent outpatient right hip surgery last week at an [facility] facility. Usual discomfort postprocedure. Weakness syncopal event at home tonight. Patient began feeling lightheaded and woozy. Was just out for a few moments. No witnessed seizures/tongue biting. No chest pain/SOB. Usual right hip discomfort. 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 Allergies Allergy/AdvReac Type Severity Reaction Status Date / Time metformin AdvReac Back Pain Verified 01/11/24 22:16 Home Medications Medication Instructions Recorded Confirmed Type apixaban 5 mg tablet (Eliquis) 5 mg PO BID 11/09/19 01/11/24 History atorvastatin 10 mg tablet (Lipitor) 10 mg PO DAILY 11/09/19 01/11/24 History ezetimibe 10 mg tablet (Zetia) 10 mg PO DAILY 11/09/19 01/11/24 History gabapentin 300 mg capsule 300 mg PO BID 11/09/19 01/11/24 History insulin glargine 100 unit/mL (3 50 unit subcut QPM 11/09/19 01/11/24 History mL) subcutaneous pen (Basaglar KwikPen U-100 Insulin) lisinopril 40 mg tablet 20 mg PO DAILY 11/09/19 01/11/24 History sotalol 120 mg tablet 60 mg PO BID 11/09/19 01/11/24 History terazosin 10 mg capsule 10 mg PO DAILY 11/09/19 01/11/24 History dulaglutide 0.75 mg/0.5 mL 0.75 mg subcut UD 03/09/21 01/11/24 History subcutaneous pen injector (Trulicity) amlodipine 5 mg tablet (Norvasc) 5 mg PO QAM #30 tabs 03/13/21 01/11/24 Rx doxycycline hyclate 100 mg capsule 100 mg PO BID #3 caps 03/13/21 01/11/24 Rx prednisone 20 mg tablet 20 mg PO UD #6 tabs 03/13/21 01/11/24 Rx Past Med/Surg History Problem List (Updated 01/11/24 @ 22:11 by Adelina Peacock MD) Atrial fibrillation with rapid ventricular response (Acute) Acute pericardial effusion (Acute) Prolonged QT interval (Acute) Syncope, cardiogenic (Acute) CAD (coronary artery disease) s/p stent per records Neurogenic claudication due to lumbar spinal stenosis Medical History Atrial fibrillation Reason for eliquis--follows with Dr Deras in [place]--pt states that since he had his ablation in 2007 he has not been in a-fib CAD (coronary artery disease) s/p stent per records Chronic back pain Diabetes mellitus, type 2 High cholesterol Hypertension On anticoagulant therapy eliquis daily Surgical History History of colonoscopy Hx of vasectomy History of tonsillectomy History of cardiac radiofrequency ablation 2007 in [place] History of left hip replacement 2017 Family History Other Heart disease No family history of adverse response to anesthesia Social History Smoking Status: Never smoker Tobacco Type: Cigarettes Second Hand Exposure: No; Do You Dip or Chew Tobacco: No; Tobacco Cessation Education Requested by Patient: No Hx Alcohol Use: No Hx Substance Use: No Preferred Language: Malian Communication Ability: Effective 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 Other Information That Helps Us Care for You: No Feels Safe at Home: Yes Safety Concerns: Feels Safe At This Time Assistive Devices: Glasses and Hospital Bed Physical Exam Physical Exam: GENERAL: Comfortable, pleasant, slightly hard of hearing, no respiratory distress SKIN: Pallor, warm HEENT: Alopecia, bespectacled, pale palpebral conjunctivae, no ptosis, dry buccal mucosa NECK : Supple, no tenderness CHEST : CTA, no tenderness HEART : Irregular, no obvious murmurs ABDOMEN: Some distention, nontender EXTREMITIES : Minimal LE swelling/right hip tenderness, no other conspicuous deformities noted NEUROLOGIC : Coherent, no facial asymmetry, slightly hard of hearing, no other gross focality Results & Data Results & Data Vital Signs (Past 12 Hours) Vital Signs Temp Pulse Pulse Resp BP BP Pulse Ox 01/11/24 23:37 104 H 01/11/24 23:34 103 H 154/94 H 01/11/24 23:06 17 154/94 H 95 01/11/24 23:02 148/113 H 01/11/24 23:02 148/113 H 01/11/24 23:00 102 H 13 96 01/11/24 22:26 103 H 20 183/95 H 96 01/11/24 20:13 92 01/11/24 20:12 105 H 24 152/107 H 96 01/11/24 19:29 106 H 20 97 01/11/24 19:14 107 H 01/11/24 19:09 36.5 C 106 H 20 125/87 97 O2 Del Method O2 Flow Rate 01/11/24 23:37 01/11/24 23:34 01/11/24 23:06 01/11/24 23:02 01/11/24 23:02 01/11/24 23:00 01/11/24 22:26 Room Air 01/11/24 20:13 Room Air, Nasal Cannula 0 01/11/24 20:12 Nasal Cannula 2 01/11/24 19:29 Room Air 01/11/24 19:14 01/11/24 19:09 Room Air Laboratory Results Laboratory Results WBC 9.85 K/ul (4.8-10.8) 01/11/24 19:07 RBC 4.04 M/uL (4.70-6.10) L 01/11/24 19:07 Hgb 12.3 g/dl (14.0-18.0) L 01/11/24 19:07 Hct 36.2 % (42.0-52.0) L 01/11/24 19:07 MCV 89.6 fL (80.0-100.0) 01/11/24 19:07 MCH 30.4 pg (25.0-34.0) 01/11/24 19:07 MCHC 34.0 g/dL (32.0-36.0) 01/11/24 19:07 RDW Std Deviation 44.1 fL (36.4-46.3) 01/11/24 19:07 RDW Coeff of Marcelo 13.5 % (11.5-14.5) 01/11/24 19:07 Plt Count 189 K/uL (130-400) 01/11/24 19:07 MPV 9.9 fL (9.4-12.4) 01/11/24 19:07 Immature Gran % (Auto) 0.4 % 01/11/24 19:07 Neut % (Auto) 75.3 % 01/11/24 19:07 Lymph % (Auto) 15.9 % 01/11/24 19:07 [place] % (Auto) 7.5 % 01/11/24 19:07 Eos % (Auto) 0.7 % 01/11/24 19:07 Baso % (Auto) 0.2 % 01/11/24 19:07 Neut # (Auto) 7.41 K/uL (1.40-6.50) H 01/11/24 19:07 Lymph # (Auto) 1.57 K/uL (1.20-3.40) 01/11/24 19:07 [place] # (Auto) 0.74 K/uL (0.11-0.59) H 01/11/24 19:07 Eos # (Auto) 0.07 K/uL (0.00-0.50) 01/11/24 19:07 Baso # (Auto) 0.02 K/uL (0.00-0.20) 01/11/24 19:07 Immature Gran # (Auto) 0.04 K/uL (0.01-0.20) 01/11/24 19:07 Sodium 140 mmol/L (136-145) 01/11/24 19:07 Potassium 3.9 mmol/L (3.5-5.1) 01/11/24 19:07 Chloride 104 mmol/L (98-107) 01/11/24 19:07 Carbon Dioxide 28 mmol/L (21-32) 01/11/24 19:07 Anion Gap 8 (3-11) 01/11/24 19:07 BUN 18 mg/dl (6-23) 01/11/24 19:07 Creatinine 1.03 mg/dl (0.6-1.4) 01/11/24 19:07 Est Cr Clr Drug Dosing 70.2 ml/min 01/11/24 19:07 Est GFR ( Amer) 79.1 ml/min 01/11/24 19:07 Est GFR (Non-Af Amer) 68.3 ml/min 01/11/24 19:07 BUN/Creatinine Ratio 17.5 (10-20) 01/11/24 19:07 Glucose 125 mg/dl (70-99(Fasting)) H 01/11/24 19:07 Calcium 9.2 mg/dl (8.6-10.3) 01/11/24 19:07 Magnesium 2.3 mg/dl (1.7-2.4) 01/11/24 19:07 Total Bilirubin 2.0 mg/dl (0.2-1.0) H 01/11/24 19:07 AST 18 U/L (13-39) 01/11/24 19:07 ALT 21 U/L (7-52) 01/11/24 19:07 Alkaline Phosphatase 49 U/L (34-104) 01/11/24 19:07 Troponin I High Sens 5.3 pg/ml (0-20) 01/11/24 19:07 Total Protein 6.4 gm/dl (6.0-8.3) 01/11/24 19:07 Albumin 4.1 gm/dl (3.4-5.0) 01/11/24 19:07 Globulin 2.3 gm/dl (2.5-4.0) L 01/11/24 19:07 Albumin/Globulin Ratio 1.8 (0.9-2) 01/11/24 19:07 TSH 6.817 uIu/ml (0.300-4.500) H 01/11/24 19:07 Free T4 1.11 ng/dl (0.61-1.60) 01/11/24 19:07 Urine Color Yellow 01/11/24 19:07 Urine Appearance Cloudy (Clear) A 01/11/24 19:07 Urine pH 8.0 (4.5-7.5) H 01/11/24 19:07 Ur Specific [place] 1.014 (1.000-1.030) 01/11/24 19:07 Urine Protein Negative (Negative) 01/11/24 19:07 Urine Glucose (UA) Negative (Negative) 01/11/24 19:07 Urine Ketones Negative (Negative) 01/11/24 19:07 Urine Blood 1+ (Negative) H 01/11/24 19:07 Urine Nitrite Negative (Negative) 01/11/24 19:07 Urine Bilirubin Negative (Negative) 01/11/24 19:07 Urine Urobilinogen Negative (Negative) 01/11/24 19:07 Ur Leukocyte Esterase Negative (Negative) 01/11/24 19:07 Urine WBC (Auto) 0-5 /hpf (0-5) 01/11/24 19:07 Urine RBC (Auto) >20 /hpf (0-2) H 01/11/24 19:07 U Hyaline Cast (Auto) 3-5 /lpf (0-2) H 01/11/24 19:07 U Epithel Cells (Auto) 0-2 /hpf (0-2) 01/11/24 19:07 Urine Bacteria (Auto) None Seen (None Seen) 01/11/24 19:07 Impressions Chest CTA 01/11/24 19:23 Exam(s): CTA CHEST IV Amt: 107 ml opti 320 EXAM: CT Angiography Chest With Intravenous Contrast CLINICAL HISTORY: Reason for exam: PE, Recent hip surgery. TECHNIQUE: Axial computed tomographic angiography images of the chest with intravenous contrast. CTDI is 39 mGy and DLP is 797.14 mGy-cm. Automated exposure control was utilized for the study. A dose lowering technique was utilized adhering to the principles of ALARA. MIP reconstructed images were created and reviewed. COMPARISON: No relevant prior studies available. FINDINGS: Pulmonary arteries: No pulmonary embolism. Aorta: No acute findings. Normal caliber. No dissection. Lungs: Atelectasis within the left lower lobe and lingula. Scarring in the anterior left upper lobe. Pleural space: Trace pleural effusions. Heart: Pericardial effusion measuring up to 1.5 cm. Bones/joints: No acute fracture. Soft tissues: Unremarkable. Lymph nodes: Unremarkable. Gallbladder and bile ducts: Cholelithiasis. IMPRESSION: 1. No pulmonary embolism. 2. Moderate pericardial effusion. 3. Trace pleural effusions. Electronically signed by: Alistair Ellis MD 01/11/24 21:05 PM Diagnostic Findings EKG as per my interpretation : Rate 110, junctional rhythm, normal axis, septal infarct, low voltage
[2024-01-12] MEDS ORDERED: DEXTROSE 50% 50 ML SYRINGE IV PRN ×2 (01:40→01:45)
[2024-01-12] MEDS ORDERED: GLUCOSE 10 TAB/TUBE PO PRN ×2 (01:40→01:45)
[2024-01-12] MEDS ORDERED: CARBOHYDRATES FOR HYPOGLYCEMIA PO PRN ×2 (01:40→01:45)
[2024-01-12] MEDS ORDERED: GLUCOSE 40% GEL 15 GM TUBE PO PRN ×2 (01:40→01:45)
[2024-01-12] MEDS ORDERED: NITROGLYCERIN SL 0.4 MG/TAB TAB SL PRN (01:40)
[2024-01-12] MEDS ORDERED: GLUCAGON FOR INJ 1 MG VIAL SQ PRN ×2 (01:40→01:45)
[2024-01-12] MEDS ORDERED: PROMETHAZINE 6.25 MG/50.25 ML BAG IV PRN (01:45)
[2024-01-12] MEDS ORDERED: oxyCODONE HCL IR 5 MG TAB (IMMEDIATE RELEASE) PO PRN (01:45)
[2024-01-12] MEDS: INSULIN ASPART PER UNIT CHARGE SC SCH ×2 (01:48→21:51)
[2024-01-12] MEDS: METOPROLOL TARTRATE 25 MG TAB PO SCH (06:09)
[2024-01-12] MEDS: ALBUMIN 25% 12.5 GM/50 ML VIAL IV ONE ×2 (06:34→20:19)
--- NOTE | 2024-01-12 07:19 | XRay Report ---
XR chest 1V portable CLINICAL HISTORY: Syncope. COMPARISON STUDY: Chest CT March 09, 2021 and chest radiograph March 10, 2021. FINDINGS: There is a small left pleural effusion. There is no pneumothorax. Lung volumes are mildly d iminished. There is moderate enlargement of the cardiac silhouette. Pulmonary vascular congestion is present. IMPRESSION: 1. Moderate enlargement of the cardiac silhouette. Pulmonary vascular congestion. 2. Small left pleural effusion. ACT 112: Negative or not required by law. Electronically signed by: Victor M Raygoza M.D. 01/12/2024 7:17 AM
[2024-01-12 07:41] LABS: Basophils # (auto) 0.02 K/uL (0.00-0.20); Basophils % (auto) 0.3 %; Eosinophils # (auto) 0.06 K/uL (0.00-0.50); Eosinophils % (auto) 0.9 %; Hematocrit (blood only) 32.7 % (42.0-52.0); Immature Granulocytes # (auto) 0.03 K/uL (0.01-0.20); Immature Granulocytes % (auto) 0.4 %; Lymphocytes # (auto) 1.41 K/uL (1.20-3.40); Lymphocytes % (auto) 20.5 %; Mean Corpuscular Hemoglobin 30.2 pg (25.0-34.0); Mean Corpuscular Hgb Conc 33.6 g/dL (32.0-36.0); Mean Corpuscular Volume 89.8 fL (80.0-100.0); Mean Platelet Volume 9.6 fL (9.4-12.4); Monocytes # (auto) 0.57 K/uL (0.11-0.59); Monocytes % (auto) 8.3 %; Neutrophils # (auto) 4.78 K/uL (1.40-6.50); Neutrophils % (auto) 69.6 %; Platelet Count 157 K/uL (130-400); RDW Coefficient of Variation 13.7 % (11.5-14.5); RDW Standard Deviation 44.6 fL (36.4-46.3); Red Blood Count 3.64 M/uL (4.70-6.10); White Blood Count 6.87 K/ul (4.8-10.8)
[2024-01-12 07:45] LABS: BUN Creatinine Ratio 15.7 (10-20); C Reactive Protein 0.7 mg/dl (0-0.5); Calcium 8.5 mg/dl (8.6-10.3); Creatinine Clr Calc Pharmacy 84.8 ml/min; Est GFR (African American) 96.3 ml/min; Est GFR (Non-African American) 83.1 ml/min; Potassium 3.6 mmol/L (3.5-5.1)
[2024-01-12 07:55] LABS: Partial Thromboplastin Ratio 1.1; Partial Thromboplastin Time 29 Seconds (21-31)
[2024-01-12] MEDS ORDERED: POTASSIUM CHLORIDE / WTR 10 MEQ/100 ML PLCT IV SCH (08:45)
[2024-01-12] MEDS: EZETIMIBE 10 MG TAB PO SCH (08:48)
[2024-01-12] MEDS: GABAPENTIN 300 MG CAP PO SCH (08:49)
[2024-01-12] MEDS: ATORVASTATIN 10 MG TAB PO SCH (08:49)
[2024-01-12] MEDS: amLODIPine BESYLATE 5 MG TAB PO SCH (08:49)
[2024-01-12] MEDS: POTASSIUM CHLORIDE CRTAB 20 MEQ TABCR PO STA (08:58)
[2024-01-12] MEDS ORDERED: LANTUS PER UNIT CHARGE SQ SCH (09:00)
[2024-01-12] MEDS ORDERED: TERAZOSIN HCL 5 MG CAP PO SCH ×2 (09:00→21:00)
[2024-01-12 09:07] LABS: Estimated Average Glucose 137 mg/dl; Hemoglobin A1C 6.4 % (4.5-5.6)
--- NOTE | 2024-01-12 10:34 | Cardiology Consultation ---
Date of Consultation January 12, 2024 Assessment & Plan (1) Syncope: (2) Atrial fibrillation with rapid ventricular response: (3) Acute pericardial effusion: (4) Prolonged QT interval: (5) CAD (coronary artery disease): Plan Patient admitted with syncopal episode at home. Recent post op hip surgery. No PE noted on chest CT. Incidental finding of pericardial effusion on Chest CT. Echo confirms small to moderate pericardial effusion without hemodynamic compromise. Likely not cause of syncope. Etiology of pericardial effusion is uncertain. Possible hypothyroidism = would treat with elevated TSH No indication for pericardiocentesis. Continue on telemetry. Found to have atrial flutter with RVR on arrival. Has been on sotalol for many years from outside nurse anesthesia program director in [place]. Not followed closely. Persistently elevated ventricular rates noted at home, at least dating back to Apr 2023. He had appt with cardio in the preop setting and was told he was in afib at that time. No med adjustments made. Recommend stopping/discontinuation of sotalol as it is not effective and he has prolonged QT interval. Repeat EKG this morning. He was started on metoprolol tartrate 12.5 mg BID on admission. Given additional dose of 12.5 this morning Transition to metoprolol succinate 25 mg BID tonight and titrate as needed/tolerated. Resume Eliquis for anticoagulation. History of remote CAD. Details unknown. Resume ASA 81 mg daily Continue statin No anginal symptoms. Hypertensive on arrival, now improved. Continue amlodipine and metoprolol Records have been requested from [facility], [facility]. Patient is trying to recall cardiology group in [place]. If PCP does not have records, will need to try and request/find out from family Case discussed with Dr. Rock I spent a total of 60 minutes on the date of service in preparation, delivery, and documentation of the care provided to this patient, excluding any time spent in the performance of separately billed services. Sandra Nolen PA-C Department of Cardiology, [facility] This chart was completed in part utilizing Speech Voice Recognition Software. Grammatical errors, random word insertions, pronoun errors, and incomplete sentences are an occasional consequence of this system due to software limitations, ambient noise, and hardware issues. Any formal questions or concerns about the content, text, or information contained within the body of this dictation should be directly addressed to the provider for clarification. Supervising Physician Co-Signing Physician Notes Patient was seen and personally examined. Full assessment and plan as outlined above. Care and management discussed in detail with advanced provider and personally endorsed Patient is an 78-year-old male with paroxysmal versus persistent atrial fibrillation/flutter on antiarrhythmic therapy with sotalol. Prior history of remote coronary disease by patient history Currently recovering from recent hip surgery. Anticoagulation interrupted for procedure Suffered a witnessed syncopal event at home. Initial CT scan of the chest and evaluation no pulmonary embolus but small to moderate pericardial effusion present confirmed by echocardiogram. Effusion not hemodynamically significant and LV systolic function normal He notes chronically elevated heart rate 100-110 despite sotalol therapy. Uses sotalol intermittently at higher doses by his own discretion EKG on presentation likely atypical atrial flutter with QT prolonged. Impression: 1. Syncope: Suspect multifactorial Including possible vasovagal event in association with recent surgery. QT prolongation raises concerns especially with patient taking additional doses of sotalol at his own discretion. By his description and history appears to have been with elevated heart rate and irregular heart rhythm since at least April. Continue to maintain telemetry Pericardial effusion has no bearing on event. LV systolic function normal Given QT prolongation will discontinue sotalol, begin metoprolol succinate for heart rate control. Could consider additional antiarrhythmic therapy in the future but would not initiate at this time given lapse in anticoagulation Recommend increasing activity while in hospital I spent a total of 30 minutes on the date of service in preparation, delivery, and documentation of the care provided to this patient, excluding any time spent in the performance of separately billed services. This chart was completed in part utilizing Speech Voice Recognition Software. Grammatical errors, random word insertions, pronoun errors, and incomplete sentences are an occasional consequence of this system due to software limitations, ambient noise, and hardware issues. Any formal questions or concerns about the content, text, or information contained within the body of this dictation should be directly addressed to the provider for clarification. History of Present Illness Reason for Consultation: Pericardial effusion; AFib Requesting Physician: Anna Tse Attending Physician: Dr. Rock History of Present Illness Patient is an 78 year old male admitted after a syncopal episode at home, w itnessed by daughter with urinary incontinence. No seizure like activity. Recent hip replacement surgery in [place]. Patient reports surgery went well. Post op discomfort noted, but has improved. Patient is from [place] and moved to the area to be closer to his daughter in August 2023. He followed with cardiology in [place] but admits that he had no recent visits. He is not the best historian. Records being requested Most recently he saw a nurse anesthesia program director in [place] (Dr. Fishman?) for preop evaluation but he does not recall any tests being performed. He believes he has been in afib "for a long time". He admits HR is chronically ranging 95-105. He takes an "extra sotalol" for higher HR's. history includes: 1. PAF - has been on sotalol and Eliquis "for years". 2. History of CAD s/p stent (unknown location/details). He reports this was in the s. 3. Hypertension 4. Dyslipidemia Upon admission, patient was in probable atrial flutter with mildly elevated ventricular rate on EKG/telemetry. Prolonged QT interval. Sotalol discontinued. Eliquis placed on hold. HS troponin negative x1. He denies symptoms of palpitations or tachypalpitations. No recent chest pain or dyspnea. Chest CTA was negative for PE but demonstrated small/moderate pericardial effusion. Eliquis placed on hold. Echo ordered and pending. At time of consult, patient resting in bed comfortably. He denies acute cardiac complaints. No chest pain, dizziness, palpitations, SOB. No pleuritic chest pain. No fevers or chills. No orthopnea, PND or edema. He voices no concerns. He wants to eat. Allergies Allergy/AdvReac Type Severity Reaction Status Date / Time metformin AdvReac Back Pain Verified 01/11/24 22:16 Home Medications Medication Instructions Recorded Confirmed Type apixaban 5 mg tablet (Eliquis) 5 mg PO BID 11/09/19 01/11/24 History atorvastatin 10 mg tablet (Lipitor) 10 mg PO DAILY 11/09/19 01/11/24 History ezetimibe 10 mg tablet (Zetia) 10 mg PO DAILY 11/09/19 01/11/24 History gabapentin 300 mg capsule 300 mg PO BID 11/09/19 01/11/24 History insulin glargine 100 unit/mL (3 50 unit subcut QPM 11/09/19 03/09/21 History mL) subcutaneous pen (Basaglar KwikPen U-100 Insulin) lisinopril 40 mg tablet 20 mg PO DAILY 11/09/19 01/11/24 History sotalol 120 mg tablet 60 mg PO BID 11/09/19 01/11/24 History terazosin 10 mg capsule 10 mg PO DAILY 11/09/19 01/11/24 History dulaglutide 0.75 mg/0.5 mL 0.75 mg subcut UD 03/09/21 03/09/21 History subcutaneous pen injector (Trulicity) amlodipine 5 mg tablet (Norvasc) 5 mg PO QAM #30 tabs 03/13/21 01/11/24 Rx doxycycline hyclate 100 mg capsule 100 mg PO BID #3 caps 03/13/21 01/11/24 Rx prednisone 20 mg tablet 20 mg PO UD #6 tabs 03/13/21 01/11/24 Rx semaglutide 1 mg/dose (4 mg/3 mL) 1 mg subcut WK 01/12/24 01/12/24 History subcutaneous pen injector (Ozempic) Patient History Medical History Atrial fibrillation Reason for eliquis--follows with Dr Deras in [place]--pt states that since he had his ablation in 2007 he has not been in a-fib CAD (coronary artery disease) s/p stent per records Chronic back pain Diabetes mellitus, type 2 High cholesterol Hypertension On anticoagulant therapy eliquis daily Surgical History History of colonoscopy Hx of vasectomy History of tonsillectomy History of cardiac radiofrequency ablation 2007 in [place] History of left hip replacement 2017 Family History Other Heart disease No family history of adverse response to anesthesia Social History Smoking Status: Never smoker Tobacco Type: Cigarettes Second Hand Exposure: No; Do You Dip or Chew Tobacco: No; Tobacco Cessation Education Requested by Patient: No Hx Alcohol Use: No Hx Substance Use: No Preferred Language: Kosovan Communication Ability: Effective Pizza Maker Required: No Beliefs That Will Affect Care: None Current Living Situation: Alone and Family Current Living Situation Comment: Daughter lives nearby; neighbor. Other Information That Helps Us Care for You: No Feels Safe at Home: Yes Safety Concerns: Feels Safe At This Time Assistive Devices: Walker Review of Systems Review of Systems: All systems reviewed & are unremarkable except as noted in HPI & below Physical Exam Constitutional: WD/WN, vitals as above + thin; no acute distress Neck: trachea midline, no thyromegaly Respiratory: normal respiratory effort, lungs clear to auscultation Cardiovascular: Rate/Rhythm: regular rhythm and + tachycardic Gastrointestinal (Abdomen): normal bowel sounds, soft, nontender, no hepatosplenomegaly Musculoskeletal: no cyanosis or clubbing, extremities motor strength 5/5 Neurologic: PERRL, EOMI, accommodation nl, no face palsy, no dysarthria Results & Data Vital Signs (Past 12 Hours) Vital Signs Temp Pulse Pulse Resp BP BP Pulse Ox 01/12/24 07:25 36.6 C 104 H 18 130/83 94 01/12/24 07:00 01/12/24 03:39 36.5 C 107 H 18 114/78 92 01/12/24 03:20 78 01/12/24 01:40 01/12/24 01:40 36.3 C L 104 H 18 119/78 95 01/12/24 01:40 36.3 C L 104 H 18 119/78 95 01/12/24 01:40 01/11/24 23:37 104 H 01/11/24 23:34 103 H 154/94 H 01/11/24 23:06 17 154/94 H 95 01/11/24 23:02 148/113 H 01/11/24 23:02 148/113 H 01/11/24 23:00 102 H 13 96 Pulse Ox O2 Del Method O2 Del Method O2 Flow Rate 01/12/24 07:25 Room Air 01/12/24 07:00 Room Air 01/12/24 03:39 Room Air 01/12/24 03:20 01/12/24 01:40 Room Air 01/12/24 01:40 Room Air 01/12/24 01:40 Room Air 01/12/24 01:40 95 Room Air 0 01/11/24 23:37 01/11/24 23:34 01/11/24 23:06 01/11/24 23:02 01/11/24 23:02 01/11/24 23:00 Laboratory Results Cardiac Enzymes 01/11/24 Range/Units 19:07 AST 18 (13-39) U/L Troponin I High Sens 5.3 (0-20) pg/ml Coagulation 01/12/24 Range/Units 07:12 APTT 29 (21-31) Seconds CBC 01/11/24 01/12/24 Range/Units 19:07 07:12 WBC 9.85 6.87 (4.8-10.8) K/ul RBC 4.04 L 3.64 L (4.70-6.10) M/uL Hgb 12.3 L 11.0 L (14.0-18.0) g/dl Hct 36.2 L 32.7 L (42.0-52.0) % Plt Count 189 157 (130-400) K/uL Neut # (Auto) 7.41 H 4.78 (1.40-6.50) K/uL Lymph # (Auto) 1.57 1.41 (1.20-3.40) K/uL [place] # (Auto) 0.74 H 0.57 (0.11-0.59) K/uL Eos # (Auto) 0.07 0.06 (0.00-0.50) K/uL Baso # (Auto) 0.02 0.02 (0.00-0.20) K/uL Comprehensive Metabolic Panel 01/11/24 01/12/24 Range/Units 19:07 07:12 Sodium 140 140 (136-145) mmol/L Potassium 3.9 3.6 (3.5-5.1) mmol/L Chloride 104 107 (98-107) mmol/L Carbon Dioxide 28 28 (21-32) mmol/L BUN 18 13 (6-23) mg/dl Creatinine 1.03 0.83 (0.6-1.4) mg/dl Glucose 125 H 97 (70-99(Fasting)) mg/dl Calcium 9.2 8.5 L (8.6-10.3) mg/dl AST 18 (13-39) U/L ALT 21 (7-52) U/L Alkaline Phosphatase 49 (34-104) U/L Total Protein 6.4 (6.0-8.3) gm/dl Albumin 4.1 (3.4-5.0) gm/dl Intake and Output 10/01/24 10/02/24 10/02/24 22:59 06:59 14:59 Intake Total 100 / 300 200 / 300 50 / 50 Output Total 625 / 625 250 / 250 Balance 100 / -325 -425 / -325 -200 / -200 Intake: IV 100 / 300 200 / 300 50 / 50 Acetaminophen 1,000 mg In 100 100 / 100 ml @ 400 mls/hr IV NOW STA Rx#: [id number] Albumin 25% 12.5 gm In 50 ml @ 50 / 50 50 mls/hr IV ONE ONE Rx#: [id number] Magnesium Sulfate / D5w 1 gm In 100 / 200 100 / 200 100 ml @ 200 mls/hr IV Q30M [facility] Rx#:[id number] Output: Urine 625 / 625 250 / 250 Other: Other Intake Source NPO Weight 100 kg 100 kg Weight Measurement Method Chair Scale Built in [facility] Diagnostic Findings Telemetry reviewed: Atrial flutter with ventricular rate ranging around 105 bmp. when rates slowed with IV Lopressor, clear flutter waves noted. EKG reviewed: Atrial flutter at 107 bmp Low voltage QRS possible old septal infarct echo - final report pending Chest CTA 01/11/24 19:23 IMPRESSION: 1. No pulmonary embolism. 2. Moderate pericardial effusion. 3. Trace pleural effusions. Chest X-Ray 01/11/24 19:23 XR chest 1V portable CLINICAL HISTORY: Syncope. COMPARISON STUDY: Chest CT March 09, 2021 and chest radiograph March 10, 2021. FINDINGS: There is a small left pleural effusion. There is no pneumothorax. Lung volumes are mildly diminished. There is moderate enlargement of the cardiac silhouette. Pulmonary vascular congestion is present. IMPRESSION: 1. Moderate enlargement of the cardiac silhouette. Pulmonary vascular congestion. 2. Small left pleural effusion. ACT 112: Negative or not required by law. Electronically signed by: Victor M Raygoza M.D. 01/12/2024 7:17 AM Medications Administered Current Inpatient Medications Acetaminophen (Acetaminophen 325 Mg Tab) 650 mg PO QID PRN PRN Reason: pain/fever Stop: 02/11/24 01:44 Amlodipine Besylate (Amlodipine Besylate 5 Mg Tab) 5 mg PO QAM [facility] Stop: 02/11/24 08:59 Last Admin: 01/12/24 08:49 Dose: 5 mg Atorvastatin Calcium (Atorvastatin 10 Mg Tab) 10 mg PO DAILY LU Stop: 02/11/24 08:59 Last Admin: 01/12/24 08:49 Dose: 10 mg Dextrose (Dextrose 50% 50 Ml Syringe) 25 - 50 ml IV UD PRN; Protocol PRN Reason: Hypoglycemia Protocol Stop: 02/11/24 01:44 Ezetimibe (Ezetimibe 10 Mg Tab) 10 mg PO DAILY LU Stop: 02/11/24 08:59 Last Admin: 01/12/24 08:48 Dose: 10 mg Gabapentin (Gabapentin 300 Mg Cap) 300 mg PO BID LU Stop: 02/11/24 08:59 Last Admin: 01/12/24 08:49 Dose: 300 mg Glucagon (Glucagon For Inj 1 Mg Vial) 1 mg SQ UD PRN; Protocol PRN Reason: Hypoglycemia Protocol Stop: 02/11/24 01:44 Glucose (Glucose 40% Gel 15 Gm Tube) 15 - 30 gm PO UD PRN; Protocol PRN Reason: Hypoglycemia Protocol Stop: 02/11/24 01:44 Glucose (Glucose 10 Tab/Tube) 4 - 8 tab PO UD PRN; Protocol PRN Reason: Hypoglycemia Treatment Stop: 02/11/24 01:44 Promethazine HCl (Phenergan) 6.25 mg in 50.25 mls @ 201 mls/hr IV Q6H PRN PRN Reason: Nausea And Vomiting Stop: 02/11/24 01:44 Insulin Aspart (Insulin Aspart Per Unit Charge) 0 units SC Q6 LU Stop: 02/11/24 01:39 Last Admin: 01/12/24 06:55 Dose: Not Given Metoprolol Succinate (Metoprolol Succ 25mg Ext Rel Tab) 25 mg PO BID LU Stop: 02/11/24 20:59 Miscellaneous (Carbohydrates For Hypoglycemia ) 15 - 30 gm PO UD PRN PRN Reason: Hypoglycemia Protocol Stop: 02/11/24 01:44 Nitroglycerin (Nitroglycerin Sl 0.4 Mg/Tab Tab) 0.4 mg SL Q5M PRN PRN Reason: Chest Pain Stop: 02/11/24 01:39 Oxycodone HCl (Oxycodone Hcl Ir 5 Mg Tab (Immediate Release)) 5 mg PO Q4H PRN PRN Reason: Pain Stop: 01/26/24 01:44 Terazosin HCl (Terazosin Hcl 5 Mg Cap) 10 mg PO HS [facility] Stop: 02/11/24 20:59 (5) CAD (coronary artery disease) Associated angina: without angina Coronary Disease-Associated Artery/Lesion type: [place] artery [place] vs. transplanted heart: [place] heart Qualified Code(s): I25.10 - Atherosclerotic heart disease of [place] coronary artery without angina pectoris
[2024-01-12] MEDS: METOPROLOL TARTRATE 25 MG TAB PO ONE (12:01)
--- NOTE | 2024-01-12 14:58 | Hospitalist Progress Note ---
Date of Service January 12, 2024 Assessment & Plan (1) Atrial fibrillation with rapid ventricular response: Plan: 78-year-old male with PMH of CAD, A-fib status post ablation on Eliquis, HTN, HLD, T2DM, chronic anemia [baseline hemoglobin of 12], recent right hip surgery [last week at [facility]], past tobacco abuse presented to the ED with complaint of syncopal event at home on the night of arrival. Patient reports feeling lightheaded and woozy and was out for a few moments. No witnessed seizure/tongue biting. No chest pain or shortness of breath. He is being managed for the following: Syncopal episode RO cardiac arrhythmia Came in with complaint of syncopal episode at home, recent right hip surgery, admitting CTA chest negative for PE but suggestive of moderate pericardial effusion. Echo with EF of 60 to 65%, left atrium moderately dilated, small to moderate circumferential pericardial effusion without hemodynamic significance. Tamponade not present. Orthostatic vitals ordered, follow. Continue telemetry monitoring. Monitor and replete electrolytes. A-fib with RVR: Noted to be in atrial flutter with RVR on arrival.Admitting EKG with accelerated junctional rhythm. Patient with history of A-fib And on sotalol for many years per patient. Discussed with cardiology, plan to stop sotalol and transition patient to metoprolol. Continue with Eliquis. Prolonged QT interval: Noted in admitting ekg Qtc 544. Sotalol discontinued. Other chronic medical conditions: Continue with/resume home meds as and when able. CAD hypertension, elevated hyperlipidemia, on statin Rx DM2, reasonable control as of last hemoglobin A1c of 7.1 last 2020 , a1c 6.4 this admission. chronic anemia, hemoglobin at baseline recent right hip surgery past tobacco abuse DVT prophylaxis. Eliquis Full code Text document was generated using [employer] voice recognition software. It may contain grammatical or spelling errors. Kindly contact undersigned for clarification of any documentation item in question. Admission and Anticipated Discharge Date Admission Date: January 11, 2024 Subjective Patient was seen and examined at bedside. Patient was lying in bed, on room air, NAD, resting comfortably. Patient denies fever/cough/chest pain. Physical Exam Physical Exam: GENERAL: Comfortable, pleasant, slightly hard of hearing, no respiratory distress SKIN: Pallor, warm HEENT: Alopecia, bespectacled, pale palpebral conjunctivae, no ptosis, moist buccal mucosa NECK : Supple, no tenderness CHEST : CTA, no tenderness HEART : Irregular, no obvious murmurs ABDOMEN: Some distention, nontender EXTREMITIES : Minimal LE swelling/right hip tenderness, no other conspicuous deformities noted NEUROLOGIC : Coherent, no facial asymmetry, slightly hard of hearing, no other gross focality Results & Data Results & Data Vital Signs (Past 12 Hours) Vital Signs Temp Pulse Pulse Resp BP Pulse Ox O2 Del Method 01/12/24 11:00 36.6 C 87 16 125/73 95 Room Air 01/12/24 07:25 36.6 C 104 H 18 130/83 94 Room Air 01/12/24 07:00 Room Air 01/12/24 03:39 36.5 C 107 H 18 114/78 92 Room Air 01/12/24 03:20 78
--- NOTE | 2024-01-12 15:12 | Electrocardiogram Report ---
Test Reason : Blood Pressure : */* mmHG Vent. Rate : 107 BPM Atrial Rate : * BPM P-R Int : * ms QRS Dur : 86 ms QT Int : 408 ms P-R-T Axes : * 49 103 degrees QTcB Int : 544 ms Sinus tachycardia with 1st degree AV block Low voltage QRS Prolonged QT Abnormal ECG When compared with ECG of 09-Mar-2021 11:54, Nonspecific T wave abnormality no longer evident in Anterior leads QT has lengthened Confirmed by Bill Ervin ([id number]) on 01/12/2024 3:11:44 PM Referred By: Confirmed By: Bill Ervin
[2024-01-12] MEDS: ACETAMINOPHEN 325 MG TAB PO PRN (19:34)
--- NOTE | 2024-01-12 19:48 | Communication Note ---
Date of Service: January 12, 2024 Made aware of borderline BP 100s since afternoon. Patient asymptomatic except for usual right sided hip pain. Syncopal event Possible orthostatic mechanism given borderline BP on multiple BP medications at home Hold terazosin and amlodipine for now.
[2024-01-12] MEDS: tiZANidine HCL 4 MG TABLET PO STA (20:08)
[2024-01-12] MEDS: APIXABAN 5 MG TABLET PO SCH (20:08)
[2024-01-12] MEDS: METOPROLOL SUCC 25MG EXT REL TAB PO SCH (20:08)
[2024-01-12 20:40] LABS: Hematocrit (blood only) 34.5 % (42.0-52.0); Hemoglobin 11.7 g/dl (14.0-18.0)
[2024-01-12] MEDS ORDERED: Nursing to Pharmacy Communication SCH (21:15)
[2024-01-12 23:03] LABS: Magnesium 2.3 mg/dl (1.7-2.4)
[2024-01-12] MEDS: POTASSIUM CHLORIDE PWD 20 MEQ PACK PO STA (23:14)
[2024-01-13 06:41] LABS: Hematocrit (blood only) 30.1 % (42.0-52.0); Hemoglobin 10.1 g/dl (14.0-18.0); Mean Corpuscular Hemoglobin 30.8 pg (25.0-34.0); Mean Corpuscular Hgb Conc 33.6 g/dL (32.0-36.0); Mean Corpuscular Volume 91.8 fL (80.0-100.0); Mean Platelet Volume 9.7 fL (9.4-12.4); Platelet Count 153 K/uL (130-400); RDW Standard Deviation 46.4 fL (36.4-46.3); Red Blood Count 3.28 M/uL (4.70-6.10); White Blood Count 7.18 K/ul (4.8-10.8)
[2024-01-13 07:03] LABS: BUN Creatinine Ratio 23.2 (10-20); Calcium 8.4 mg/dl (8.6-10.3); Creatinine Clr Calc Pharmacy 62.9 ml/min; Magnesium 2.3 mg/dl (1.7-2.4); Phosphorus 3.4 mg/dl (2.5-4.9); Potassium 4.6 mmol/L (3.5-5.1)
[2024-01-13] MEDS: LANTUS PER UNIT CHARGE SQ SCH (08:54)
--- NOTE | 2024-01-13 12:21 | Cardiology Progress Note ---
Date of Service January 13, 2024 Assessment & Plan (1) Syncope: (2) Atrial fibrillation with rapid ventricular response: (3) Acute pericardial effusion: (4) Prolonged QT interval: (5) CAD (coronary artery disease): Plan 01/12/24: Patient admitted with syncopal episode at home. Recent post op hip surgery. No PE noted on chest CT. Incidental finding of pericardial effusion on Chest CT. Echo confirms small to moderate pericardial effusion without hemodynamic compromise. Likely not cause of syncope. Etiology of pericardial effusion is uncertain. Possible hypothyroidism = would treat with elevated TSH No indication for pericardiocentesis. Continue on telemetry. Found to have atrial flutter with RVR on arrival. Has been on sotalol for many years from outside nub card tender in [place]. Not followed closely. Persistently elevated ventricular rates noted at home, at least dating back to Apr 2023. He had appt with cardio in the preop setting and was told he was in afib at that time. No med adjustments made. Recommend stopping/discontinuation of sotalol as it is not effective and he has prolonged QT interval. Repeat EKG this morning. He was started on metoprolol tartrate 12.5 mg BID on admission. Given additional dose of 12.5 this morning Transition to metoprolol succinate 25 mg BID tonight and titrate as needed/tolerated. Resume Eliquis for anticoagulation. History of remote CAD. Details unknown. Resume ASA 81 mg daily Continue statin No anginal symptoms. Hypertensive on arrival, now improved. Continue amlodipine and metoprolol Records have been requested from [facility], [facility]. Patient is trying to recall cardiology group in [place]. If PCP does not have records, will need to try and request/find out from family 01/13/24: No recurrent syncopal events overnight. EKG this morning with improved QT/QTc interval off sotalol. Mild improvement in atrial flutter rates with initiation of metoprolol. Titrate further to 50 mg BID today. Continue Eliquis for anticoagulation. Attempted cardioversion not advised due to recent lapse of anticoagulation with recent hip surgery. Ongoing rate control recommended for now. Borderline hypotension noted last night. Agree with holding amlodipine. Echo with small/moderate pericardial effusion. No tamponade. No symptoms. Monitor. Likely repeat echo in 1 month Consider outpatient engine monitor given syncope and to evaluate atrial flutter rates. He wishes to follow up with Dr. Fishman in [place] for ongoing cardiology care. Case discussed with Dr. Rock I spent a total of 30 minutes on the date of service in preparation, delivery, and documentation of the care provided to this patient, excluding any time spent in the performance of separately billed services. Sandra Nolen PA-C Department of Cardiology, [facility] This chart was completed in part utilizing Speech Voice Recognition Software. Grammatical errors, random word insertions, pronoun errors, and incomplete sentences are an occasional consequence of this system due to software limitations, ambient noise, and hardware issues. Any formal questions or concerns about the content, text, or information contained within the body of this dictation should be directly addressed to the provider for clarification. Admission and Anticipated Discharge Date Admission Date: January 11, 2024 Supervising Physician Co-Signing Physician Notes Patient was seen and personally examined. Full assessment and plan as outlined above. Care and management discussed in detail with advanced provider and personally endorsed 78-year-old male admitted with syncopal event multifactorial. Longstanding history of atrial arrhythmias would appear to be persistent atrial flutter as on admission and historic description. Had been using sotalol with variable personally adjusted doses for rate control Plan and recommendations as above. Would discontinue sotalol. Continue metoprolol succinate for rate control at 50 mg twice per day Chronic anticoagulation with Eliquis Follow-up with primary nub card tender at [facility] I spent a total of 20 minutes on the date of service in preparation, delivery, and documentation of the care provided to this patient, excluding any time spent in the performance of separately billed services. This chart was completed in part utilizing Speech Voice Recognition Software. Grammatical errors, random word insertions, pronoun errors, and incomplete sentences are an occasional consequence of this system due to software limi tations, ambient noise, and hardware issues. Any formal questions or concerns about the content, text, or information contained within the body of this dictation should be directly addressed to the provider for clarification. Subjective Patient resting in bed comfortably. Denies acute cardiac complaints of CP/SOB, palpitations, or recurrent dizziness/syncope. Extensive conversation held regarding why sotalol was discontinued in setting of being not effective in controlling atrial arrhythmias and his QT prolongation on arrival with syncope Review of Systems Review of Systems: All systems reviewed & are unremarkable except as noted in HPI & below Physical Exam Constitutional: WD/WN, vitals as above + thin; no acute distress Neck: trachea midline, no thyromegaly Respiratory: normal respiratory effort, lungs clear to auscultation Cardiovascular: Rate/Rhythm: regular rhythm and + tachycardic Gastrointestinal (Abdomen): normal bowel sounds, soft, nontender, no hepatosplenomegaly Musculoskeletal: no cyanosis or clubbing, extremities motor strength 5/5 Neurologic: PERRL, EOMI, accommodation nl, no face palsy, no dysarthria Results & Data Vital Signs (Past 12 Hours) Vital Signs Temp Pulse Resp BP Pulse Ox O2 Del Method 01/13/24 10:50 37.0 C 70 19 125/79 93 Room Air 01/13/24 08:36 36.5 C 108 H 18 116/79 97 Room Air 01/13/24 02:36 36.8 C 81 17 115/78 90 Room Air 01/13/24 00:09 37.1 C 50 L 16 99/63 L 92 Room Air Laboratory Results CBC 01/12/24 01/13/24 Range/Units 20:18 06:16 WBC 7.18 (4.8-10.8) K/ul RBC 3.28 L (4.70-6.10) M/uL Hgb 11.7 L 10.1 L (14.0-18.0) g/dl Hct 34.5 L 30.1 L (42.0-52.0) % Plt Count 153 (130-400) K/uL Comprehensive Metabolic Panel 01/13/24 Range/Units 06:16 Sodium 140 (136-145) mmol/L Potassium 4.6 D (3.5-5.1) mmol/L Chloride 110 H (98-107) mmol/L Carbon Dioxide 27 (21-32) mmol/L BUN 26 H (6-23) mg/dl Creatinine 1.12 (0.6-1.4) mg/dl Glucose 105 H (70-99(Fasting)) mg/dl Calcium 8.4 L (8.6-10.3) mg/dl Intake and Output 01/12/24 01/13/24 01/13/24 22:59 06:59 14:59 Intake Total 250 / 590 50 / 590 Output Total 300 / 750 200 / 750 Balance -50 / -160 -150 / -160 Intake: IV 50 / 100 Albumin 25% 12.5 gm In 50 ml @ 50 / 50 50 mls/hr IV ONE ONE Rx#: [id number] Oral 200 / 490 50 / 490 Output: Urine 300 / 750 200 / 750 Other: Weight 100.2 kg Weight Measurement Method Built in [facility] Diagnostic Findings Telemetry reviewed: Persistent atrial flutter. HR's improved the 70-80's overnight but increased to 100-110 this morning. Repeat EKG this morning reviewed: Atrial flutter with variable AV block at 81 bmp Low voltage QRS QT/QTc 384/446 ms Echo report reviewed dated 01/12/24: Atrial fib/flutter present during study LV is normal in size Moderate concentric LVH LVEF 60-65% LA is moderately dilated Mild calcification of the aortic valve. No significant aortic stenosis Small to moderate circumferential pericardial effusion without hemodynamic significance. No tamponade. Medications Administered Current Inpatient Medications Acetaminophen (Acetaminophen 325 Mg Tab) 650 mg PO QID PRN PRN Reason: pain/fever Stop: 02/11/24 01:44 Last Admin: 01/13/24 11:19 Dose: 650 mg Amlodipine Besylate (Amlodipine Besylate 5 Mg Tab) 5 mg PO QAM LU Stop: 02/11/24 08:59 Last Admin: 01/12/24 08:49 Dose: 5 mg Apixaban (Apixaban 5 Mg Tablet) 5 mg PO BID LU Stop: 02/11/24 20:59 Last Admin: 01/13/24 08:54 Dose: 5 mg Atorvastatin Calcium (Atorvastatin 10 Mg Tab) 10 mg PO DAILY LU Stop: 02/11/24 08:59 Last Admin: 01/13/24 08:54 Dose: 10 mg Dextrose (Dextrose 50% 50 Ml Syringe) 25 - 50 ml IV UD PRN; Protocol PRN Reason: Hypoglycemia Protocol Stop: 02/11/24 01:44 Ezetimibe (Ezetimibe 10 Mg Tab) 10 mg PO DAILY LU Stop: 02/11/24 08:59 Last Admin: 01/13/24 08:54 Dose: 10 mg Gabapentin (Gabapentin 300 Mg Cap) 300 mg PO BID LU Stop: 02/11/24 08:59 Last Admin: 01/13/24 08:54 Dose: 300 mg Glucagon (Glucagon For Inj 1 Mg Vial) 1 mg SQ UD PRN; Protocol PRN Reason: Hypoglycemia Protocol Stop: 02/11/24 01:44 Glucose (Glucose 40% Gel 15 Gm Tube) 15 - 30 gm PO UD PRN; Protocol PRN Reason: Hypoglycemia Protocol Stop: 02/11/24 01:44 Glucose (Glucose 10 Tab/Tube) 4 - 8 tab PO UD PRN; Protocol PRN Reason: Hypoglycemia Treatment Stop: 02/11/24 01:44 Promethazine HCl (Phenergan) 6.25 mg in 50.25 mls @ 201 mls/hr IV Q6H PRN PRN Reason: Nausea And Vomiting Stop: 02/11/24 01:44 Insulin Aspart (Insulin Aspart Per Unit Charge) 0 units SC ACHS LU Stop: 02/11/24 20:59 Last Admin: 01/13/24 08:53 Dose: 2 units Insulin Glargine (Lantus Per Unit Charge) 5 units SQ DAILY LU Stop: 02/12/24 08:59 Last Admin: 01/13/24 08:54 Dose: Not Given Metoprolol Succinate (Metoprolol Succ 25mg Ext Rel Tab) 25 mg PO BID LU Stop: 02/11/24 20:59 Last Admin: 01/13/24 08:54 Dose: 25 mg Miscellaneous (Carbohydrates For Hypoglycemia ) 15 - 30 gm PO UD PRN PRN Reason: Hypoglycemia Protocol Stop: 02/11/24 01:44 Nitroglycerin (Nitroglycerin Sl 0.4 Mg/Tab Tab) 0.4 mg SL Q5M PRN PRN Reason: Chest Pain Stop: 02/11/24 01:39 Oxycodone HCl (Oxycodone Hcl Ir 5 Mg Tab (Immediate Release)) 5 mg PO Q4H PRN PRN Reason: Pain Stop: 01/26/24 01:44 Terazosin HCl (Terazosin Hcl 5 Mg Cap) 10 mg PO HS [facility] Stop: 02/11/24 20:59 (5) CAD (coronary artery disease) Associated angina: without angina Coronary Disease-Associated Artery/Lesion type: [place] artery [place] vs. transplanted heart: [place] heart Qualified Code(s): I25.10 - Atherosclerotic heart disease of [place] coronary artery without angina pectoris
[2024-01-13] MEDS: METOPROLOL SUCC 25MG EXT REL TAB PO ONE (13:20)
--- NOTE | 2024-01-13 13:31 | Hospitalist Progress Note ---
Date of Service January 13, 2024 Assessment & Plan (1) Atrial fibrillation with rapid ventricular response: Plan: 78-year-old male with PMH of CAD, A-fib status post ablation on Eliquis, HTN, HLD, T2DM, chronic anemia [baseline hemoglobin of 12], recent right hip surgery [last week at [facility]], past tobacco abuse presented to the ED with complaint of syncopal event at home on the night of arrival. Patient reports feeling lightheaded and woozy and was out for a few moments. No witnessed seizure/tongue biting. No chest pain or shortness of breath. He is being managed for the following: Syncopal episode RO cardiac arrhythmia Came in with complaint of syncopal episode at home, recent right hip surgery, admitting CTA chest negative for PE but suggestive of moderate pericardial effusion. Echo with EF of 60 to 65%, left atrium moderately dilated, small to moderate circumferential pericardial effusion without hemodynamic significance. Tamponade not present. Orthostatic vitals neg. Hypotension noted / evening, amlod dc'd as metoprolol being uptitrated. Continue telemetry monitoring. Monitor and replete electrolytes. A-fib with RVR: Noted to be in atrial flutter with RVR on arrival. Admitting EKG with accelerated junctional rhythm. Patient with history of A-fib and on sotalol for many years per patient. Cario on board, sotalol dc'd, metoprolol being uptitrated. c/w eliquis. HR better controlled now. c/w tele monitoring. Prolonged QT interval: Noted in admitting ekg Qtc 544. Sotalol discontinued. Other chronic medical conditions: Continue with/resume home meds as and when able. CAD hypertension, elevated hyperlipidemia, on statin Rx DM2, reasonable control as of last hemoglobin A1c of 7.1 last 2020 , a1c 6.4 this admission. chronic anemia, hemoglobin at baseline recent right hip surgery past tobacco abuse DVT prophylaxis. Eliquis Full code Text document was generated using [employer] voice recognition software. It may contain grammatical or spelling errors. Kindly contact undersigned for clarification of any documentation item in que stion. Admission and Anticipated Discharge Date Admission Date: January 11, 2024 Subjective Patient was seen and examined at bedside. Patient was lying in bed, on room air, NAD, resting comfortably. Patient denies fever/cough/chest pain. Pt reports eating ok, reports moving bowel 5 days ago, will add bowel regimen. Had borderline hypotension last evening, amlodipine was held. Patient reports he did not pass out. Physical Exam Physical Exam: GENERAL: Comfortable, pleasant, slightly hard of hearing, no respiratory distress SKIN: Pallor, warm HEENT: Alopecia, bespectacled, pale palpebral conjunctivae, no ptosis, moist buccal mucosa NECK : Supple, no tenderness CHEST : CTA, no tenderness HEART : Irregular, no obvious murmurs ABDOMEN: Some distention, nontender EXTREMITIES : Minimal LE swelling/right hip tenderness, no other conspicuous deformities noted NEUROLOGIC : Coherent, no facial asymmetry, slightly hard of hearing, no other gross focality Results & Data Results & Data Vital Signs (Past 12 Hours) Vital Signs Temp Pulse Resp BP Pulse Ox O2 Del Method 01/13/24 10:50 37.0 C 70 19 125/79 93 Room Air 01/13/24 08:36 36.5 C 108 H 18 116/79 97 Room Air 01/13/24 02:36 36.8 C 81 17 115/78 90 Room Air
[2024-01-13] MEDS: POLYETHYLENE (MIRALAX) 17 GM PACK PO ONE (14:41)
[2024-01-13] MEDS: DOCUSATE SODIUM 100 MG CAP PO SCH (14:41)
[2024-01-13] MEDS: METOPROLOL SUCC 50MG EXT REL TAB PO SCH (20:38)
[2024-01-14] MEDS: tiZANidine HCL 4 MG TABLET PO PRN (03:55)
[2024-01-14 04:25] LABS: BUN Creatinine Ratio 24.8 (10-20); Calcium 8.2 mg/dl (8.6-10.3); Creatinine Clr Calc Pharmacy 69.7 ml/min; Potassium 3.9 mmol/L (3.5-5.1)
[2024-01-14 06:58] LABS: Basophils # (auto) 0.04 K/uL (0.00-0.20); Basophils % (auto) 0.5 %; Eosinophils # (auto) 0.08 K/uL (0.00-0.50); Eosinophils % (auto) 1.1 %; Hematocrit (blood only) 33.6 % (42.0-52.0); Hemoglobin 11.1 g/dl (14.0-18.0); Immature Granulocytes # (auto) 0.03 K/uL (0.01-0.20); Immature Granulocytes % (auto) 0.4 %; Lymphocytes # (auto) 2.12 K/uL (1.20-3.40); Mean Corpuscular Hemoglobin 30.6 pg (25.0-34.0); Mean Corpuscular Volume 92.6 fL (80.0-100.0); Mean Platelet Volume 9.7 fL (9.4-12.4); Monocytes # (auto) 0.62 K/uL (0.11-0.59); Monocytes % (auto) 8.2 %; Neutrophils # (auto) 4.69 K/uL (1.40-6.50); Neutrophils % (auto) 61.8 %; Platelet Count 172 K/uL (130-400); RDW Coefficient of Variation 13.9 % (11.5-14.5); RDW Standard Deviation 46.5 fL (36.4-46.3); Red Blood Count 3.63 M/uL (4.70-6.10); White Blood Count 7.58 K/ul (4.8-10.8)
[2024-01-14 08:03] VITALS: BP 106/69; PULSE 108; RESP 18; TEMP 98.1; O2SAT 95
[2024-01-14] MEDS: METOPROLOL SUCC 25MG EXT REL TAB PO SCH (09:33)
[2024-01-14] MEDS: POLYETHYLENE (MIRALAX) 17 GM PACK PO PRN (09:34)
--- NOTE | 2024-01-14 10:46 | Electrocardiogram Report ---
Test Reason : Blood Pressure : */* mmHG Vent. Rate : 99 BPM Atrial Rate : 214 BPM P-R Int : * ms QRS Dur : 88 ms QT Int : 328 ms P-R-T Axes : 61 -7 -41 degrees QTcB Int : 420 ms Atrial flutter with variable A-V block Low voltage QRS Nonspecific ST abnormality Abnormal ECG When compared with ECG of 13-Jan-2024 05:51, QRS axis Shifted left Nonspecific T wave abnormality no longer evident in Anterior leads Confirmed by Bill Ervin ([id number] on 01/14/2024 10:46:03 AM Referred By: REFERRED SELF Confirmed By: Bill Ervin
--- NOTE | 2024-01-14 12:10 | Discharge Summary ---
Date of Service January 14, 2024 Admission HPI Per Admitting Provider History obtained from patient and records. Medical history significant for CAD, A-fib status post ablation on Eliquis, hypertension, hyperlipidemia, DM2, chronic anemia (baseline hemoglobin of 12), recent right hip surgery, past tobacco abuse. Last confinement March 2021 for prior influenza pneumonia. Patient underwent outpatient right hip surgery last week at an [place] facility. Usual discomfort postprocedure. Weakness syncopal event at home tonight. Patient began feeling lightheaded and woozy. Was just out for a few moments. No witnessed seizures/tongue biting. No chest pain/SOB. Usual right hip discomfort. 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 Admission Exam Per Admitting Provider GENERAL: Comfortable, pleasant, slightly hard of hearing, no respiratory distress SKIN: Pallor, warm HEENT: Alopecia, bespectacled, pale palpebral conjunctivae, no ptosis, dry buccal mucosa NECK : Supple, no tenderness CHEST : CTA, no tenderness HEART : Irregular, no obvious murmurs ABDOMEN: Some distention, nontender EXTREMITIES : Minimal LE swelling/right hip tenderness, no other conspicuous deformities noted NEUROLOGIC : Coherent, no facial asymmetry, slightly hard of hearing, no other gross focality Principal Diagnosis Atrial fibrillation with RVR Prolonged QT interval Syncopal episode Discharge Exam GENERAL: Comfortable, pleasant, slightly hard of hearing, no respiratory distress SKIN: Pallor, warm HEENT: Alopecia, bespectacled, pale palpebral conjunctivae, no ptosis, moist buccal mucosa NECK : Supple, no tenderness CHEST : CTA, no tenderness HEART : Irregular, no obvious murmurs ABDOMEN: Some distention, nontender EXTREMITIES : Minimal LE swelling/right hip tenderness, no other conspicuous deformities noted NEUROLOGIC : Coherent, no facial asymmetry, slightly hard of hearing, no other gross focality Discharge Data Allergies Allergy/AdvReac Type Severity Reaction Status Date / Time metformin AdvReac Back Pain Verified 01/11/24 22:16 Consultations 01/12/24 01:40 Consult Cardiology Routine 01/12/24 10:21 HIM [Consult Health Information Management] Routine Ordered Studies 01/11/24 19:23 CT for pulmonary embolism PE [CT angio chest PE protocol] Stat Hospital Course (1) Atrial fibrillation with rapid ventricular response: 78-year-old male with PMH of CAD, A-fib status post ablation on Eliquis, HTN, HLD, T2DM, chronic anemia [baseline hemoglobin of 12], recent right hip surgery [last week at [facility]], past tobacco abuse presented to the ED with complaint of syncopal event at home on the night of arrival. Patient reports feeling lightheaded and woozy and was out for a few moments. No witnessed seizure/tongue biting. No chest pain or shortness of breath. He was managed for the following: Syncopal episode RO cardiac arrhythmia Came in with complaint of syncopal episode at home, recent right hip surgery, admitting CTA chest negative for PE but suggestive of moderate pericardial effusion. Echo with EF of 60 to 65%, left atrium moderately dilated, small to moderate circumferential pericardial effusion without hemodynamic significance. Tamp onade not present. Orthostatic vitals neg. Hypotension noted 10/2 evening, amlod dc'd as metoprolol being uptitrated. Lisinopril on hold due to soft bp. Pt will benefit from OP zio patch monitoring, pt to coordinate w/ his cardiology office on discharge, pt has been made aware. A-fib with RVR: Noted to be in atrial flutter with RVR on arrival. Admitting EKG with accelerated junctional rhythm. Patient with history of A-fib and on sotalol for many years per patient. [place] evaled, sotalol dc'd, metoprolol being uptitrated. c/w eliquis. OK for dc w/ cardio f/u on dc. Prolonged QT interval: Noted in admitting ekg Qtc 544. Sotalol discontinued. Other chronic medical conditions: Continue with/resume home meds as and when able. CAD hypertension, elevated hyperlipidemia, on statin Rx DM2, reasonable control as of last hemoglobin A1c of 7.1 last 2020 , a1c 6.4 this admission. chronic anemia, hemoglobin at baseline recent right hip surgery past tobacco abuse DVT prophylaxis. Eliquis Full code Patient is being discharged to home with home health with following instruction at the point of discharge: Follow-up with your primary care physician within a week time and likely you will need labs CBC/CMP/magnesium/phosphorus. You were admitted for syncopal episode, you will benefit from Zio patch monitoring as an outpatient. Coordinate with your PCP office or cardiology office to set up the test. You were noted to have atrial fibrillation with rapid ventricular response, your sotalol has been discontinued [because of prolonged QT interval]. Cardiology evaluated you. You are being discharged on metoprolol. Follow-up with your cardiology in 1 to 2 weeks time upon discharge. Continue to follow-up with your PCP office or diabetic clinic for ongoing management of your diabetes. Take your medications as prescribed. Please make sure that you are able to get your medications today by calling your pharmacy before you leave the hospital so that your treatment continuity is not broken. Text document was generated using [employer] recognition software. It may contain grammatical or spelling errors. Kindly contact undersigned for clarification of any documentation item in question. Home Health Attestation I certify that this patient is under my care and that I, or a physicians addictions counselor assistant working with me, had a face to-face encounter that meets the home health dnep-vy-wiat encounter requirements with this patient. The encounter with the patient was in whole, or in part, for the following medical condition, which is the primary reason for home health care (list me dical condition): Pericardial effusion I certify that, based on my findings, the following services are medically necessary home health services: My clinical findings support the need for the above services because: OT Assess ADL Status and Restore Function w ADLs PT Assessment for Endurance / Balance / Strength PT Eval for Safety and Mobility PT Eval for Safety, Gait Training, Assistive Devices PT Gait and Balance Training, Strengthening and Safety Skilled Nsg Assessment Further, I certify that my clinical findings support that this patient is homebound (i.e. absences from home require considerable and taxing effort and are for medical reasons or taoist services or infrequently or of short duration when for other reasons) because: Supportive Aid - Walker Certification for Home Health Services: Based on the above findings, I certify that this patient is confined to the home and needs intermittent fpc care, physical therapy and/or speech therapy or continues to need occupational therapy. The patient is under my care, and I have initiated the establishment of the plan of care. This patient will be followed by a physician who will periodically review the plan of care. Total Time Total Time Spent Total Time Spent (In Minutes): 45 Discharge Plan Discharge Items Patient Disposition: Home - Home Health Services Reason For Visit: PERICARDIAL EFFUSION Discharge Diagnosis: Atrial fibrillation with RVR Prolonged QT interval Syncopal episode Activity: Resume your previous activity Non-emergency contact: Primary Care Provider Call non-emergency contact if: you have any medication questions, your symptoms worsen and your temperature is above 101 Follow-up/Referrals: Ady Edwards, DO [Primary Care Provider] - (The [place] will contact you for a follow up appointment. Please call their office if you do not receive a phone call.) Diet: Carb Consistent or DM2 and Heart Healthy Addtl Attending Provider Instructions: Follow-up with your primary care physician within a week time and likely you will need labs CBC/CMP/magnesium/phosphorus. You were admitted for syncopal episode, you will benefit from Zio patch monitor ing as an outpatient. Coordinate with your PCP office or cardiology office to set up the test. You were noted to have atrial fibrillation with rapid ventricular response, your sotalol has been discontinued [because of prolonged QT interval]. Cardiology evaluated you. You are being discharged on metoprolol. Follow-up with your cardiology in 1 to 2 weeks time upon discharge. Continue to follow-up with your PCP office or diabetic clinic for ongoing management of your diabetes. Take your medications as prescribed. Please make sure that you are able to get your medications today by calling your pharmacy before you leave the hospital so that your treatment continuity is not broken. Pending Studies at Discharge: No Stand-Alone Forms: [facility], Smoking Cessation Medications and DC Order Prescriptions: New metoprolol succinate 25 mg Tablet Extended Release 24 Hr 75 mg PO BID Qty: 180 0RF docusate sodium 100 mg Capsule 100 mg PO BID PRN (Reason: constipation) Qty: 20 0RF Continued atorvastatin [Lipitor] 10 mg tablet 10 mg PO DAILY gabapentin 300 mg capsule 300 mg PO BID terazosin 10 mg capsule 10 mg PO DAILY ezetimibe [Zetia] 10 mg tablet 10 mg PO DAILY Eliquis 5 mg tablet 5 mg PO BID Trulicity 0.75 mg/0.5 mL pen injector 0.75 mg SUBCUT UD Patient Comments: is not taking. takes Ozempic. Rx Instructions: Fridays Ozempic 1 mg/dose (4 mg/3 mL) Pen Injector 1 mg SUBCUT WK Rx Instructions: Saturdays. Changed insulin glargine [Basaglar KwikPen U-100 Insulin] 100 unit/mL (3 mL) insulin pen 10 unit SUBCUT QPM Qty: 0 0RF Patient Comments: is not taking. stopped taking x ~1yr ago. Held lisinopril 40 mg tablet 20 mg PO DAILY Hold Instructions: Resume on 01/20/24. held due to soft BP, resume after eval at PCP office in a week time. Discontinued sotalol 120 mg tablet 60 mg PO BID doxycycline hyclate 100 mg Capsule 100 mg PO BID Qty: 3 0RF amlodipine [Norvasc] 5 mg Tablet 5 mg PO QAM Qty: 30 0RF prednisone 20 mg tablet 20 mg PO UD Qty: 6 0RF Rx Instructions: take 2 tablets for 2 days and 1 tablet for 2 days Discharge Orders: Discharge Order (Routine); Ordered 01/14/24 Ordered By: Evaristo Chu/Other Patient Handouts: Managing Type 2 Diabetes Admission Data Admit Date/Time: 01/11/24 23:51 Attending Provider: Evaristo Billings Admit Provider: Luis Muñoz Primary Care Provider: Ady Edwards Other Providers: Jane Franco; Arvind Wyatt; Richi Rock; Juan Carlos Olivarez; Varun Nguyen; Ady Sin; Sandra Nolen; Ching Peters; Erin Vicente; Jane Bhatia; Luis Alberto Worthington; Dilshad Zazueta; Nidhi Mathis; Carli Sofia; Daxa Pandya; Brock Hood; Vito Wayne; Krystyna Mcmanus; [facility]; [facility]
--- NOTE | 2024-01-14 12:35 | Cardiology Progress Note ---
Date of Service January 14, 2024 Assessment & Plan (1) Syncope: (2) Atrial fibrillation with rapid ventricular response: (3) Acute pericardial effusion: (4) Prolonged QT interval: (5) CAD (coronary artery disease): Plan 01/12/24: Patient admitted with syncopal episode at home. Recent post op hip surgery. No PE noted on chest CT. Incidental finding of pericardial effusion on Chest CT. Echo confirms small to moderate pericardial effusion without hemodynamic compromise. Likely not cause of syncope. Etiology of pericardial effusion is uncertain. Possible hypothyroidism = would treat with elevated TSH No indication for pericardiocentesis. Continue on telemetry. Found to have atrial flutter with RVR on arrival. 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 Not followed closely. Persistently elevated ventricular rates noted at home, at least dating back to Apr 2023. He had appt with cardio in the preop setting and was told he was in afib at that time. No med adjustments made. Recommend stopping/discontinuation of sotalol as it is not effective and he has prolonged QT interval. Repeat EKG this morning. He was started on metoprolol tartrate 12.5 mg BID on admission. Given additional dose of 12.5 this morning Transition to metoprolol succinate 25 mg BID tonight and titrate as needed/tolerated. Resume Eliquis for anticoagulation. History of remote CAD. Details unknown. Resume ASA 81 mg daily Continue statin No anginal symptoms. Hypertensive on arrival, now improved. Continue amlodipine and metoprolol Records have been requested from [facility], [facility]. Patient is trying to recall cardiology group in [place]. If PCP does not have records, will need to try and request/find out from family 01/13/24: No recurrent syncopal events overnight. EKG this morning with improved QT/QTc interval off sotalol. Mild improvement in atrial flutter rates with initiation of metoprolol. Titrate further to 50 mg BID today. Continue Eliquis for anticoagulation. Attempted cardioversion not advised due to recent lapse of anticoagulation with recent hip surgery. Ongoing rate control recommended for now. Borderline hypotension noted last night. Agree with holding amlodipine. Echo with small/moderate pericardial effusion. No tamponade. No symptoms. Monitor. Likely repeat echo in 1 month Consider outpatient equipment monitor phototypesetting given syncope and to evaluate atrial flutter rates. 01/14/24: patient with chronic/persistent atrial flutter around 100 bmp Increase metoprolol to 75 mg BID stop amlodipine given intermittent hypotension. Continue Eliquis Sotalol was stopped this admission due to syncope/prolonged QT interval. QT interval has improved since admission. Anticoagulation was interrupted several weeks ago for knee surgery. Once he is appropriately anticoagulated for 4 weeks, could consider amiodarone for rhythm control. Will defer to his cardiology team as an outpatient - He wishes to follow up with Dr. Fishman in [place] for ongoing cardiology care. In regards to small/moderate pericardial effusion. he is asymptomatic and no tamponade. Would repeat echo in about 1 month. Stable cardiac symptoms for discharge today Discussed with hospitalist. Case discussed with Dr. Rock I spent a total of 30 minutes on the date of service in preparation, delivery, and documentation of the care provided to this patient, excluding any time spent in the performance of separately billed services. Sandra Nolen PA-C Department of Cardiology, [facility] This chart was completed in part utilizing [employer] Recognition Software. Grammatical errors, random word insertions, pronoun errors, and incomplete sentences are an occasional consequence of this system due to software limitations, ambient noise, and hardware issues. Any formal questions or concerns about the content, text, or information contained within the body of this dictation should be directly addressed to the provider for clarification. Admission and Anticipated Discharge Date Admission Date: January 11, 2024 Supervising Physician Co-Signing Physician Notes Patient was seen and personally examined. Full assessment and plan as outlined above. Care and management discussed in detail with advanced provider and personally endorsed 78-year-old male admitted with syncopal event multifactorial. Longstanding history of atrial arrhythmias would appear to be persistent atrial flutter as on admission and historic description. Had been using sotalol with variable personally adjusted doses for rate control Once again discussed antiarrhythmic therapy in detail with patient Given syncope level likely multifactorial but with QT prolongation would not reinstitute sotalol Could consider amiodarone in future once anticoagulation for 3-4 weeks assured Patient to follow-up with primary wireline operator Manish Castañeda I spent a total of 20 minutes on the date of service in preparation, delivery, and documentation of the care provided to this patient, excluding any time spent in the performance of separately billed services. This chart was completed in part utilizing Speech Voice Recognition Software. Grammatical errors, random word insertions, pronoun errors, and incomplete sentences are an occasional consequence of this system due to software limitati ons, ambient noise, and hardware issues. Any formal questions or concerns about the content, text, or information contained within the body of this dictation should be directly addressed to the provider for clarification. Subjective Patient resting in bed comfortably today. Eager for discharge home today. Denies acute cardiac complaints. No recurrent dizziness, lightheadedness, syncope or near syncope. no chest pain or dyspnea. Review of Systems Review of Systems: All systems reviewed & are unremarkable except as noted in HPI & below Physical Exam Constitutional: WD/WN, vitals as above + thin; no acute distress Neck: trachea midline, no thyromegaly Respiratory: normal respiratory effort, lungs clear to auscultation Cardiovascular: Rate/Rhythm: regular rhythm and + tachycardic Gastrointestinal (Abdomen): normal bowel sounds, soft, nontender, no hepatosplenomegaly Musculoskeletal: no cyanosis or clubbing, extremities motor strength 5/5 Neurologic: PERRL, EOMI, accommodation nl, no face palsy, no dysarthria Results & Data Vital Signs (Past 12 Hours) Vital Signs Temp Pulse Resp BP Pulse Ox O2 Del Method 01/14/24 08:02 36.7 C 108 H 18 106/69 95 Room Air 01/14/24 03:00 36.9 C 106 H 14 130/83 93 Room Air Laboratory Results CBC 01/14/24 Range/Units 03:52 WBC 7.58 (4.8-10.8) K/ul RBC 3.63 L (4.70-6.10) M/uL Hgb 11.1 L (14.0-18.0) g/dl Hct 33.6 L (42.0-52.0) % Plt Count 172 (130-400) K/uL Neut # (Auto) 4.69 (1.40-6.50) K/uL Lymph # (Auto) 2.12 (1.20-3.40) K/uL Wilkes # (Auto) 0.62 H (0.11-0.59) K/uL Eos # (Auto) 0.08 (0.00-0.50) K/uL Baso # (Auto) 0.04 (0.00-0.20) K/uL Comprehensive Metabolic Panel 01/14/24 Range/Units 03:52 Sodium 138 (136-145) mmol/L Potassium 3.9 (3.5-5.1) mmol/L Chloride 108 H (98-107) mmol/L Carbon Dioxide 25 (21-32) mmol/L BUN 25 H (6-23) mg/dl Creatinine 1.01 (0.6-1.4) mg/dl Glucose 98 (70-99(Fasting)) mg/dl Calcium 8.2 L (8.6-10.3) mg/dl Intake and Output 01/13/24 01/14/24 01/14/24 22:59 06:59 14:59 Intake Total 200 / 1030 Output Total 200 / 1250 1050 / 1250 Balance 0 / -220 -1050 / -220 Intake: Oral 200 / 1030 Output: Urine 200 / 1250 1050 / 1250 Other: Weight 101 kg Diagnostic Findings Telemetry reviewed: atrial flutter with rates around 100-105 bmp. EKG reviewed form today 01/14/24: Atrial flutter with variable AV block at 99 bmp Nonspecific T wave abnormality No significant change from previous QT/QTc 328/420 ms Medications Administered Current Inpatient Medications Acetaminophen (Acetaminophen 325 Mg Tab) 650 mg PO QID PRN PRN Reason: pain/fever Stop: 02/11/24 01:44 Last Admin: 01/14/24 03:20 Dose: 650 mg Amlodipine Besylate (Amlodipine Besylate 5 Mg Tab) 5 mg PO QAM LU Stop: 02/11/24 08:59 Last Admin: 01/12/24 08:49 Dose: 5 mg Apixaban (Apixaban 5 Mg Tablet) 5 mg PO BID LU Stop: 02/11/24 20:59 Last Admin: 01/14/24 08:42 Dose: 5 mg Atorvastatin Calcium (Atorvastatin 10 Mg Tab) 10 mg PO DAILY LU Stop: 02/11/24 08:59 Last Admin: 01/14/24 08:42 Dose: 10 mg Dextrose (Dextrose 50% 50 Ml Syringe) 25 - 50 ml IV UD PRN; Protocol PRN Reason: Hypoglycemia Protocol Stop: 02/11/24 01:44 Docusate Sodium (Docusate Sodium 100 Mg Cap) 100 mg PO BID LU Stop: 02/12/24 13:24 Last Admin: 01/14/24 08:41 Dose: 100 mg Ezetimibe (Ezetimibe 10 Mg Tab) 10 mg PO DAILY LU Stop: 02/11/24 08:59 Last Admin: 01/14/24 08:42 Dose: 10 mg Gabapentin (Gabapentin 300 Mg Cap) 300 mg PO BID LU Stop: 02/11/24 08:59 Last Admin: 01/14/24 08:43 Dose: 300 mg Glucagon (Glucagon For Inj 1 Mg Vial) 1 mg SQ UD PRN; Protocol PRN Reason: Hypoglycemia Protocol Stop: 02/11/24 01:44 Glucose (Glucose 40% Gel 15 Gm Tube) 15 - 30 gm PO UD PRN; Protocol PRN Reason: Hypoglycemia Protocol Stop: 02/11/24 01:44 Glucose (Glucose 10 Tab/Tube) 4 - 8 tab PO UD PRN; Protocol PRN Reason: Hypoglycemia Treatment Stop: 02/11/24 01:44 Promethazine HCl (Phenergan) 6.25 mg in 50.25 mls @ 201 mls/hr IV Q6H PRN PRN Reason: Nausea And Vomiting Stop: 02/11/24 01:44 Insulin Aspart (Insulin Aspart Per Unit Charge) 0 units SC ACHS LU Stop: 02/11/24 20:59 Last Admin: 01/14/24 11:36 Dose: 4 units Insulin Glargine (Lantus Per Unit Charge) 5 units SQ DAILY LU Stop: 02/12/24 08:59 Last Admin: 01/14/24 09:00 Dose: Not Given Metoprolol Succinate (Metoprolol Succ 25mg Ext Rel Tab) 75 mg PO BID LU Stop: 02/13/24 08:59 Last Admin: 01/14/24 09:33 Dose: 75 mg Miscellaneous (Carbohydrates For Hypoglycemia ) 15 - 30 gm PO UD PRN PRN Reason: Hypoglycemia Protocol Stop: 02/11/24 01:44 Nitroglycerin (Nitroglycerin Sl 0.4 Mg/Tab Tab) 0.4 mg SL Q5M PRN PRN Reason: Chest Pain Stop: 02/11/24 01:39 Oxycodone HCl (Oxycodone Hcl Ir 5 Mg Tab (Immediate Release)) 5 mg PO Q4H PRN PRN Reason: Pain Stop: 01/26/24 01:44 Polyethylene Glycol (Polyethylene (Miralax) 17 Gm Pack) 17 gm PO DAILY PRN PRN Reason: Constipation Stop: 02/12/24 13:24 Last Admin: 01/14/24 09:34 Dose: 17 gm Terazosin HCl (Terazosin Hcl 5 Mg Cap) 10 mg PO HS LU Stop: 02/11/24 20:59 Tizanidine HCl (Tizanidine Hcl 4 Mg Tablet) 2 mg PO TID PRN PRN Reason: spasm Stop: 02/13/24 03:24 Last Admin: 01/14/24 03:55 Dose: 2 mg (5) CAD (coronary artery disease) Associated angina: without angina Coronary Disease-Associated Artery/Lesion type: [place] artery [place] vs. transplanted heart: [place] heart Qualified Code(s): I25.10 - Atherosclerotic heart disease of [place] coronary artery without angina pectoris
[2024-01-14] MEDS: LACTULOSE SYRUP 20 GM/30 ML UDC PO ONE (14:16)
== END 2024-01-14 16:09 | disposition home health service (06) | DRG 310 ==
LOC: ED 18:55 → 2S 23:51
DX: I95.9 Hypotension, unspecified; E78.5 Hyperlipidemia, unspecified; Z79.01 Long term (current) use of anticoagulants; Z79.4 Long term (current) use of insulin; Z88.8 Allergy status to other drugs, medicaments and biological substances; R55 Syncope and collapse; I45.81 Long QT syndrome; Z95.5 Presence of coronary angioplasty implant and graft; E11.9 Type 2 diabetes mellitus without complications; Z87.891 Personal history of nicotine dependence; Z79.899 Other long term (current) drug therapy; I25.10 Atherosclerotic heart disease of native coronary artery without angina pectoris; D64.9 Anemia, unspecified; I48.91 Unspecified atrial fibrillation; I10 Essential (primary) hypertension; Z82.49 Family history of ischemic heart disease and other diseases of the circulatory system; L65.9 Nonscarring hair loss, unspecified; I48.92 Unspecified atrial flutter

== ENCOUNTER 2024-06-05 10:06 | Inpatient (IN) ==
[2024-06-05 10:42] LABS: Basophils # (auto) 0.01 K/uL (0.00-0.20); Basophils % (auto) 0.2 %; Hematocrit (blood only) 35.1 % (42.0-52.0); Hemoglobin 11.5 g/dl (14.0-18.0); Immature Granulocytes # (auto) 0.05 K/uL (0.01-0.20); Immature Granulocytes % (auto) 0.8 %; Lymphocytes # (auto) 0.33 K/uL (1.20-3.40); Mean Corpuscular Hemoglobin 29.5 pg (25.0-34.0); Mean Corpuscular Hgb Conc 32.8 g/dL (32.0-36.0); Mean Platelet Volume 9.7 fL (9.4-12.4); Monocytes # (auto) 0.45 K/uL (0.11-0.59); Monocytes % (auto) 6.9 %; Neutrophils # (auto) 5.71 K/uL (1.40-6.50); Neutrophils % (auto) 87.1 %; Platelet Count 141 K/uL (130-400); RDW Coefficient of Variation 15.9 % (11.5-14.5); RDW Standard Deviation 52.5 fL (36.4-46.3); White Blood Count 6.55 K/ul (4.8-10.8)
[2024-06-05 11:04] LABS: Albumin Globulin Ratio 1.5 (0.9-2); Albumin Level 3.5 gm/dl (3.4-5.0); BUN Creatinine Ratio 13.8 (10-20); Bilirubin,Total 1.3 mg/dl (0.2-1.0); Calcium 8.3 mg/dl (8.6-10.3); Creatinine Clr Calc Pharmacy 82.1 ml/min; Globulin 2.4 gm/dl (2.5-4.0); Potassium 3.7 mmol/L (3.5-5.1); Total Protein 5.9 gm/dl (6.0-8.3)
--- NOTE | 2024-06-05 11:14 | XRay Report ---
XR chest 1V portable CLINICAL HISTORY: Dyspnea COMPARISON STUDY: 01/11/2024 FINDINGS: Stable cardiomegaly with mild pulmonary vascular congestion. There is interval patchy opaci ty throughout both lungs with relative peripheral sparing. No pleural effusion or pneumothorax. IMPRESSION: 1. CHF. 2. Diffuse patchy pulmonary opacities could represent pneumonia or pulmonary edema. ACT 112: Negative or not required by law. Electronically signed by: Ramana Hinds M.D. 06/05/2024 11:13 AM
[2024-06-05 11:31] LABS: Adenovirus PCR Not Detected (NotDetected); Bordetella parapertussis PCR Not Detected (NotDetected); Bordetella pertussis PCR Not Detected (NotDetected); Chlamydia pneumoniae PCR Not Detected (NotDetected); Coronavirus 229E PCR Not Detected (NotDetected); Coronavirus CoV-2 (COVID19)PCR Not Detected (NotDetected); Coronavirus HKU1 PCR Not Detected (NotDetected); Coronavirus NL63 PCR Not Detected (NotDetected); Coronavirus OC43PCR Not Detected (NotDetected); Human Metapneumovirus PCR Not Detected (NotDetected); Influenza A (H3) PCR DETECTED (NotDetected); Influenza B PCR Not Detected (NotDetected); Mycoplasma pneumoniae PCR Not Detected (NotDetected); Parainfluenza Virus 1 PCR Not Detected (NotDetected); Parainfluenza Virus 2 PCR Not Detected (NotDetected); Parainfluenza Virus 3 PCR Not Detected (NotDetected); Parainfluenza Virus 4 PCR Not Detected (NotDetected); Respiratory Syncytial VirusPCR Not Detected (NotDetected); Rhinovirus/Enterovirus PCR Not Detected (NotDetected)
[2024-06-05] MEDS: cefTRIAXone SODIUM 2,000 MG/50 ML BAG IV STA (11:33)
[2024-06-05] MEDS: DOXYCYCLINE HYCLATE 100 MG in DEXTROSE 5% MINI-B 100 ML IV STA (12:02)
--- NOTE | 2024-06-05 12:17 | Emergency Department Note ---
Impression & Plan Acute hypoxemic respiratory failure, Atrial fibrillation with rapid ventricular response, Influenza A ED Provider Note NAME: ASHLEY MCCARTNEY AGE: 78 SEX: M : 1945 ARRIVES VIA: Ambulance INFORMANT: Patient, ED PROVIDER(S): Adelina Peacock MD CHIEF COMPLAINT: Shortness of breath HPI: This is a an 78-year-old male present for shortness of breath. patient has used outside hospital over the last 1 week because he had issues with his abdominal pain and was found to be possibly septic. He states he was discharged on Augmentin after few days in the hospital. Since returning home he has developed shortness of breath, coughing and feels like he has the flu. He called EMS today for difficulty breathing and was found to have oxygen saturation of about 80%. Patient placed on oxygen and brought here. Patient given albuterol treatment as well By EMS ROS: See above HPI for pertinent positives & negatives. A total of 10 systems reviewed and were otherwise negative. PAST MEDICAL HISTORY: See Below PAST SURGICAL HISTORY: See Below FAMILY HISTORY: See Below SOCIAL HISTORY: See Below HOME MEDICATIONS: See Below ALLERGIES: See Below VITALS: See Below PHYSICAL EXAMINATION: General: resting comfortably in no acute distress Head: Normocephalic and atraumatic Eyes: Normal inspection, extraocular muscles intact Ear, nose, throat: Normal external exam Neck: Normal range of motion Respiratory: lungs clear to auscultation bilaterally Cardiovascular: Regular rate/rhythm, no murmur GI: soft, nontender, no guarding or rebound Extremities: nontender, moves all extremities Neuro: The patient awake and alert, appropriately conversive, no focal deficits, symmetric faces Skin: Warm, dry, and intact MEDICAL DECISION MAKING: This is a 78-year-old male presenting for shortness of breath. Patient has constellation of upper respiratory type symptoms. Found to be hypoxic 80%. Consider upper restaurant infection versus pneumonia -Chest x-ray independently interpreted by me shows multifocal opacities, cardiomegaly -Blood work is reviewed showing no leukocytosis, electrolytes within h normal limits. -Will give doxycycline and ceftriaxone due to the chest x-ray showing likely pneumonia. -Patient also positive for influenza A at this time -Will admit to the hospital at this time as he is significantly hypoxic Differential diagnosis: URI, pneumonia, PE, ACS Independent History obtained from: Family [facility]ostics interpreted by me: ECG: ECG independently interpreted by me with atrial fibrillation with RVR at 118, right axis deviation, normal QRS, normal QTc, no ST segment elevations consistent with STEMI criteria Cardiac Monitoring: An order was placed for continuous cardiac monitoring. The monitor shows a rate of 111 with atrial fibrillation rhythm. Past Med/Surg History Problem List (Updated 06/06/24 @ 10:22 by Adelina Peacock MD) Influenza A (Acute) Acute hypoxemic respiratory failure (Acute) Atrial fibrillation with rapid ventricular response (Acute) Medical History Prolonged QT interval CAD (coronary artery disease) s/p stent per records Neurogenic claudication due to lumbar spinal stenosis Pneumonia Chronic back pain Diabetes mellitus, type 2 On anticoagulant therapy eliquis daily High cholesterol Hypertension Atrial fibrillation Reason for eliquis--follows with Dr Deras in [place]--pt states that since he had his ablation in 2007 he has not been in a-fib Surgical History History of colonoscopy Hx of vasectomy History of tonsillectomy History of cardiac radiofrequency ablation 2007 in [place] History of left hip replacement 2017 Family History Other Heart disease No family history of adverse response to anesthesia Social History Smoking Status: Former smoker Tobacco Type: Cigarettes Second Hand Exposure: No; Do You Dip or Chew Tobacco: No; Hx Alcohol Use: No Hx Substance Use: Yes Last Used Substance: Days (ago) Last Used Substance Other:: daily at night for sleep, 5mg Substance Use Type Other:: CBD Preferred Language: Venezuelan Communication Ability: Effective Electric Meter Reader Required: No Beliefs That Will Affect Care: None Current Living Situation: Alone Current Living Situation Comment: Daughter lives nearby; neighbor. Feels Safe at Home: Yes Assistive Devices: Glasses, Hearing Aid - Bilateral and Walker Allergies Allergies Allergy/AdvReac Type Severity Reaction Status Date / Time metoprolol [From Lopressor] AdvReac Intermediate syncope Verified 06/06/24 02:27 metformin AdvReac Back Pain Verified 01/11/24 22:16 Home Meds Home Medications Medication Instructions Recorded Confirmed apixaban 5 mg tablet (Eliquis) 5 mg PO BID 11/09/19 06/05/24 atorvastatin 10 mg tablet (Lipitor) 10 mg PO DAILY 11/09/19 06/05/24 ezetimibe 10 mg tablet (Zetia) 10 mg PO DAILY 11/09/19 06/05/24 terazosin 10 mg capsule 10 mg PO HS 11/09/19 06/05/24 semaglutide 1 mg/dose (4 mg/3 mL) 1 mg subcut WK 01/12/24 06/05/24 subcutaneous pen injector (Ozempic) amiodarone 200 mg tablet 200 mg PO DAILY 06/05/24 06/05/24 amoxicillin 500 mg-potassium 1 tab PO BID 06/05/24 06/05/24 clavulanate 125 mg tablet (Augmentin) docusate sodium 100 mg capsule 100 mg PO DAILY PRN constipation 06/05/24 06/05/24 gabapentin 600 mg tablet 600 mg PO BID 06/05/24 06/05/24 lorazepam 0.5 mg tablet 0.5 mg PO DAILY PRN Anxiety 06/05/24 06/05/24 losartan 50 mg tablet 50 mg PO DAILY 06/05/24 06/05/24 Results & Data (ED) Vital Signs Vital Signs - 24 hr 06/05/24 10:30 06/05/24 10:30 06/05/24 10:30 Pulse Rate 108 H Pulse Rate from SpO2 Sensor Respiratory Rate 22 Respiratory Effort / Characteristics Respiratory Depth Respiratory Pattern Blood Pressure 149/98 H Blood Pressure Mean 132 Pulse Oximetry 93 Oxygen Delivery Method Nasal Cannula Nasal Cannula Oxygen Flow Rate 2 2 06/05/24 10:34 06/05/24 10:42 06/05/24 11:00 Pulse Rate 110 H 115 H Pulse Rate from SpO2 Sensor 110 H 116 H Respiratory Rate 34 H 34 H Respiratory Effort / Characteristics Non-Labored Spontaneous Respiratory Depth Normal Respiratory Pattern Regular Blood Pressure 148/91 H Blood Pressure Mean 110 Pulse Oximetry 93 96 Oxygen Delivery Method Nasal Cannula Nasal Cannula Nasal Cannula Oxygen Flow Rate 2 2 2 06/05/24 11:30 06/05/24 11:33 06/05/24 12:30 Pulse Rate 96 H 102 H Pulse Rate from SpO2 Sensor 102 H 104 H Respiratory Rate 28 H 24 Respiratory Effort / Characteristics Respiratory Depth Respiratory Pattern Blood Pressure 132/68 137/103 H Blood Pressure Mean 84 114 Pulse Oximetry 95 96 Oxygen Delivery Method Nasal Cannula Nasal Cannula Oxygen Flow Rate 2 2 Laboratory Data 06/06/24 03:31 06/06/24 03:31 Lab Results 06/05/24 06/05/24 Range/Units 10:15 10:32 WBC 6.55 (4.8-10.8) K/ul RBC 3.90 L (4.70-6.10) M/uL Hgb 11.5 L (14.0-18.0) g/dl Hct 35.1 L (42.0-52.0) % MCV 90.0 (80.0-100.0) fL MCH 29.5 (25.0-34.0) pg MCHC 32.8 (32.0-36.0) g/dL RDW Std Deviation 52.5 H (36.4-46.3) fL RDW Coeff of Marcelo 15.9 H (11.5-14.5) % Plt Count 141 (130-400) K/uL MPV 9.7 (9.4-12.4) fL Immature Gran % (Auto) 0.8 % Neut % (Auto) 87.1 % Lymph % (Auto) 5.0 % [place] % (Auto) 6.9 % Eos % (Auto) 0.0 % Baso % (Auto) 0.2 % Neut # (Auto) 5.71 (1.40-6.50) K/uL Lymph # (Auto) 0.33 L (1.20-3.40) K/uL [place] # (Auto) 0.45 (0.11-0.59) K/uL Eos # (Auto) 0.00 (0.00-0.50) K/uL Baso # (Auto) 0.01 (0.00-0.20) K/uL Immature Gran # (Auto) 0.05 (0.01-0.20) K/uL Sodium 139 (136-145) mmol/L Potassium 3.7 (3.5-5.1) mmol/L Chloride 106 (98-107) mmol/L Carbon Dioxide 26 (21-32) mmol/L Anion Gap 7 (3-11) BUN 13 (6-23) mg/dl Creatinine 0.94 (0.6-1.4) mg/dl Est Cr Clr Drug Dosing 82.1 ml/min eGFR 81.95 BUN/Creatinine Ratio 13.8 (10-20) Glucose 147 H (70-99(Fasting)) mg/dl Calcium 8.3 L (8.6-10.3) mg/dl Magnesium 2.0 (1.7-2.4) mg/dl Total Bilirubin 1.3 H (0.2-1.0) mg/dl AST 22 (13-39) U/L ALT 37 (7-52) U/L Alkaline Phosphatase 81 (34-104) U/L Total Protein 5.9 L (6.0-8.3) gm/dl Albumin 3.5 (3.4-5.0) gm/dl Globulin 2.4 L (2.5-4.0) gm/dl Albumin/Globulin Ratio 1.5 (0.9-2) Adenovirus (PCR) Not Detected (NotDetected) B. pertussis DNA (PCR) Not Detected (NotDetected) B.parapertussis DNA PCR Not Detected (NotDetected) C. pneumoniae DNA (PCR) Not Detected (NotDetected) Coronavirus OC43 (PCR) Not Detected (NotDetected) Coronavirus HKU1 (PCR) Not Detected (NotDetected) Coronavirus 229E (PCR) Not Detected (NotDetected) SARS-CoV-2 (PCR) Not Detected (NotDetected) Coronavirus NL63 (PCR) Not Detected (NotDetected) Human Metapneumovir PCR Not Detected (NotDetected) Influenza A (H3) PCR DETECTED A (NotDetected) Influenza Type B (PCR) Not Detected (NotDetected) M. pneumoniae (PCR) Not Detected (NotDetected) Parainfluenza 1 (PCR) Not Detected (NotDetected) Parainfluenza 2 (PCR) Not Detected (NotDetected) Parainfluenza 3 (PCR) Not Detected (NotDetected) Parainfluenza 4 (PCR) Not Detected (NotDetected) RSV (PCR) Not Detected (NotDetected) Entero/Rhino (PCR) Not Detected (NotDetected) Administered Medications Amiodarone HCl (Amiodarone 200 Mg Tab) 200 mg PO DAILY LU Stop: 07/06/24 08:59 Last Admin: 06/06/24 09:07 Dose: 200 mg Documented By: RYAN Apixaban (Apixaban 5 Mg Tablet) 5 mg PO BID UL Stop: 07/05/24 20:59 Last Admin: 06/06/24 09:07 Dose: 5 mg Documented By: Admin: 06/05/24 21:05 Dose: 5 mg Documented By: SUZANNA Atorvastatin Calcium (Atorvastatin 10 Mg Tab) 10 mg PO DAILY LU Stop: 07/06/24 08:59 Last Admin: 06/06/24 09:07 Dose: 10 mg Documented By: RYAN Azithromycin (Azithromycin 250 Mg Tab) 500 mg PO QAM LU Stop: 06/11/24 09:29 Last Admin: 06/06/24 10:03 Dose: 500 mg Documented By: RYAN Ezetimibe (Ezetimibe 10 Mg Tab) 10 mg PO DAILY LU Stop: 07/06/24 08:59 Last Admin: 06/06/24 09:07 Dose: 10 mg Documented By: RYAN Gabapentin (Gabapentin 600 Mg Tab) 600 mg PO BID LU Stop: 07/05/24 20:59 Last Admin: 06/06/24 09:08 Dose: 600 mg Documented By: Admin: 06/05/24 21:05 Dose: 600 mg Documented By: SUZANNA Guaifenesin (Guaifenesin 600 Mg Tabcr) 600 mg PO Q12 LU Stop: 07/05/24 20:59 Last Admin: 06/06/24 09:07 Dose: 600 mg Documented By: Admin: 06/05/24 21:05 Dose: 600 mg Documented By: SUZANNA Insulin Aspart (Insulin Aspart Per Unit Charge) 0 units SC ACHS LU Stop: 07/05/24 16:29 Last Admin: 06/06/24 09:06 Dose: 6 units Documented By: RYAN Co-signed By: HAKEEM Admin: 06/05/24 22:01 Dose: Not Given Documented By: Admin: 06/05/24 17:54 Dose: Not Given Documented By: SALVADOR Ipratropium [place] (Ipratropium [place] Neb Soln 0.02% 0.5mg/2.5ml Vial) 0.5 mg NEB Q6H PRN PRN Reason: Shortness Of Breath Or Wheezing Stop: 07/05/24 14:39 Last Admin: 06/05/24 20:35 Dose: 0.5 mg Documented By: SUZANNA Levalbuterol HCl (Levalbuterol Hcl 0.63 Mg/3 Ml Neb) 0.63 mg NEB Q6H PRN; Protocol PRN Reason: Shortness Of Breath Or Wheezing Stop: 07/05/24 14:39 Last Admin: 06/05/24 20:35 Dose: 0.63 mg Documented By: SUZANNA Losartan Potassium (Losartan Potassium 50 Mg Tab) 100 mg PO QAM LU Stop: 07/06/24 05:49 Last Admin: 06/06/24 06:18 Dose: 100 mg Documented By: SUZANNA Oseltamivir Phosphate (Oseltamivir Phosphate 75 Mg Cap) 75 mg PO BID LU Stop: 06/10/24 20:59 Last Admin: 06/06/24 09:07 Dose: 75 mg Documented By: Admin: 06/05/24 21:05 Dose: 75 mg Documented By: SUZANNA Terazosin HCl (Terazosin Hcl 5 Mg Cap) 10 mg PO HS [facility] Stop: 07/05/24 20:59 Last Admin: 06/05/24 21:05 Dose: 10 mg Documented By: SUZANNA Discontinued Medications Amoxicillin/Clavulanate Potassium (Amoxicillin/Clavulanate 875 Mg Tab) 1 tab PO BID [facility]; Protocol Stop: 06/15/24 08:59 Last Admin: 06/06/24 09:07 Dose: 1 tab Documented By: Admin: 06/05/24 21:05 Dose: 1 tab Documented By: SUZANNA Clonidine HCl (Clonidine Hcl 0.1 Mg Tab) 0.1 mg PO NOW ONE Stop: 06/06/24 02:27 Last Admin: 06/06/24 02:33 Dose: 0.1 mg Documented By: SUZANNA Furosemide (Furosemide Inj 20 Mg/2 Ml Vial) 20 mg IV ONE ONE Stop: 06/05/24 14:39 Last Admin: 06/05/24 14:54 Dose: 20 mg Documented By: CEF Furosemide (Furosemide Inj 20 Mg/2 Ml Vial) 20 mg IV ONE ONE Stop: 06/05/24 21:15 Last Admin: 06/05/24 21:50 Dose: 20 mg Documented By: SUZANNA Ceftriaxone Sodium (Rocephin) 2,000 mg in 50 mls @ 100 mls/hr IV NOW STA Stop: 06/05/24 11:49 Last Infusion: 06/05/24 12:05 Dose: Infused Documented By: Admin: 06/05/24 11:33 Dose: 100 mls/hr Documented By: CEF Doxycycline Hyclate 100 mg/ (Dextrose) 100 mls @ 50 mls/hr IV NOW STA Stop: 06/05/24 13:19 Last Infusion: 06/05/24 14:20 Dose: Infused Documented By: Admin: 06/05/24 12:02 Dose: 50 mls/hr Documented By: CEF Methylprednisolone 20 mg/ (Syringe) 0.32 mls @ 1.5 mls/min IV NOW STA Stop: 06/05/24 21:43 Last Admin: 06/05/24 21:57 Dose: 1.5 mls/min Documented By: SUZANNA Metoprolol Tartrate (Metoprolol Tartrate 1 Mg/Ml Vial) 2.5 mg IV NOW STA Stop: 06/05/24 21:17 Last Admin: 06/05/24 21:51 Dose: Not Given Documented By: SUZANNA Metoprolol Tartrate (Metoprolol Tartrate 1 Mg/Ml Vial) 2.5 mg IV NOW STA Stop: 06/06/24 02:06 Last Admin: 06/06/24 02:15 Dose: Not Given Documented By: SUZANNA Potassium Chloride (Potassium Chloride Pwd 20 Meq Pack) 40 meq PO NOW STA Stop: 06/05/24 21:17 Last Admin: 06/05/24 21:48 Dose: 40 meq Documented By: SUZANNA Imaging Data Radiologist's Impression: Chest X-Ray 06/05/24 10:28 XR chest 1V portable CLINICAL HISTORY: Dyspnea COMPARISON STUDY: 01/11/2024 FINDINGS: Stable cardiomegaly with mild pulmonary vascular congestion. There is interval patchy opacity throughout both lungs with relative peripheral sparing. No pleural effusion or pneumothorax. IMPRESSION: 1. CHF. 2. Diffuse patchy pulmonary opacities could represent pneumonia or pulmonary edema. ACT 112: Negative or not required by law. Electronically signed by: Ramana Hinds M.D. 06/05/2024 11:13 AM Discharge Plan Visit Data Chief Complaint: Shortness of Breath/Dyspnea Stated Complaint: SOB ED Provider: Adelina Peacock Discharge Problem: Acute hypoxemic respiratory failure, Atrial fibrillation with rapid ventricular response, Influenza A Patient Disposition: Admitted As Inpatient Discharge Instructions Interventions: ED Discharge Assessment Last Done: 06/05/24 15:11
--- NOTE | 2024-06-05 13:16 | History & Physical Report ---
<Statement entered by Lauerano Walker, DO - 06/05/24 15:03> I have seen and examined the patient and have discussed the case with the advance practice provider. I have reviewed the advanced practitioner's documentation, and I agree with, and take responsibility for that plan of care. Patient seen and evaluated while still in the ED. Daughter at bedside. Lungs: Decreased breath sounds, coarse rhonchi throughout, few scattered wheezes CV: S1-S2 irregular irregular Discussed plan of care as outlined below I spent a total of 14 minutes coordinating, documenting, and providing care for this patient excluding time spent by another provider/QHP. Date of Service June 05, 2024 Assessment & Plan (1) Acute hypoxemic respiratory failure: (2) Influenza A: (3) Atrial fibrillation with rapid ventricular response: (4) Diabetes mellitus, type 2: (5) Hypertension: (6) High cholesterol: (7) CAD (coronary artery disease): Plan This is an 78 y/o male with atrial fibrillation, on chronic anticoagulation, CAD, HTN, dyslipidemia, DM2, and other history as outlined below who presented to the ED today with cough and shortness of breath x 2 days. Work-up in the ED was positive for influenza A. Chest xray personally reviewed with patchy pulmona ry opacities. Suspect componet of volume overload in view of recent admission to [facility] with possible sepsis and cholangitis where he was given IVF hydration. Pt has been on Augmentin for probable cholangitis since discharge and has ten more days of treatment for a total of fourteen days. #Acute hypoxic respiratory failure - suspect multifactorial from influenza A, v olume overload, less likely bacterial pneumonia #Influenza A - Admit to PCU - Tamiflu x 5 days - Continue supplemental O2 titrated to effect - wean as tolerated - Labs in the AM - Incentive spirometry, guaifenesin - Will give IV furosemide x 1 dose, re-evaluate in the AM - PRN nebs - ipratropium/levalbuterol #Atrial fibrillation with RVR - suspect elevated rate related to DuoNeb received en route + acute influenza A - Change nebs to Xopenex/ipratropium as above - Continue amiodarone - On chronic AC with Eliquis - will continue #CAD - stable without anginal symptoms - Continue outpatient meds #Recent presumed cholangitis - likely passed stone - Complete course of antibiotic as prescribed - LFTs in the AM #DM2 - last A1c 01/12/24 was 6.4 - Insulin sliding scale - Diabetic diet - BSG ACHS - A1c in the AM #Dyslipidemia - Continue statin #Hypertension - chronic - Continue losartan with holds Pt seen and reviewed with collaborating physician, Dr. Walker. Plan of care discussed and as outlined above. Code status: Full code DVT prophylaxis: on Eliquis, will continue Deshaun Juarez PA-C History of Present Illness Chief Complaint: cough, shortness of breath Primary Care Provider: Ady Edwards, This is an 78 y/o male with atrial fibrillation, on chronic anticoagulation, CAD, HTN, dyslipidemia, DM2, and other history as outlined below who presented to the ED today with cough and shortness of breath x 2 days. He was reportedly admitted to [facility] last week for three days for his "gallbladder" although pt is unsure of the exact diagnosis. From his description, it seems most consistent with cholangitis. Pt reports that he was told that he likely passed a stone. Cholecystectomy and/or ERCP were discussed but pt declined preferring to manage conservatively so he was discharged on two weeks of Augmentin. He reports that the abdominal pain from last week has completely resolved with no recurrent symptoms since discharge four days ago. Three days ago, he reportedly started with a mild cough. Two days, he felt significantly worse with productive cough, chest congestion, OHARA, runny nose, PND, and shortness of breath. Wednesday night, he reports he couldn't sleep due to orthopnea and cough. [place] worse yesterday, again didn't sleep last night, before he finally called EMS this morning. He was noted to be hypoxic on their arrival and placed on 6L of O2 but sats still in the low 90s. Given a DuoNeb en route with improvement in sats to upper 90s. In the ED, O2 was able to titrated down to 2L. Over the last two days, appetite has been poor with limited oral intake. However, he denies abdominal pain, N/V/D at present. He notes significant fatigue and weakness but denies myalgias or arthralgias. Allergies Allergy/AdvReac Type Severity Reaction Status Date / Time metformin AdvReac Back Pain Verified 01/11/24 22:16 Home Medications Medication Instructions Recorded Confirmed Type apixaban 5 mg tablet (Eliquis) 5 mg PO BID 11/09/19 06/05/24 History atorvastatin 10 mg tablet (Lipitor) 10 mg PO DAILY 11/09/19 06/05/24 History ezetimibe 10 mg tablet (Zetia) 10 mg PO DAILY 11/09/19 06/05/24 History terazosin 10 mg capsule 10 mg PO HS 11/09/19 06/05/24 History semaglutide 1 mg/dose (4 mg/3 mL) 1 mg subcut WK 01/12/24 06/05/24 History subcutaneous pen injector (Ozempic) amiodarone 200 mg tablet 200 mg PO DAILY 06/05/24 06/05/24 History amoxicillin 500 mg-potassium 1 tab PO BID 06/05/24 06/05/24 History clavulanate 125 mg tablet (Augmentin) docusate sodium 100 mg capsule 100 mg PO DAILY PRN constipation 06/05/24 06/05/24 History gabapentin 600 mg tablet 600 mg PO BID 06/05/24 06/05/24 History lorazepam 0.5 mg tablet 0.5 mg PO DAILY PRN Anxiety 06/05/24 06/05/24 History losartan 50 mg tablet 50 mg PO DAILY 06/05/24 06/05/24 History Past Med/Surg History Problem List (Updated 06/05/24 @ 14:44 by Sandra Juarez PA-C) Influenza A Acute hypoxemic respiratory failure Atrial fibrillation with rapid ventricular response (Acute) Medical History Prolonged QT interval CAD (coronary artery disease) s/p stent per records Neurogenic claudication due to lumbar spinal stenosis Pneumonia Chronic back pain Diabetes mellitus, type 2 On anticoagulant therapy eliquis daily High cholesterol Hypertension Atrial fibrillation Reason for eliquis--follows with Dr Deras in [place]--pt states that since he had his ablation in 2007 he has not been in a-fib Surgical History History of colonoscopy Hx of vasectomy History of tonsillectomy History of cardiac radiofrequency ablation 2007 in [place] History of left hip replacement 2017 Family History Other Heart disease No family history of adverse response to anesthesia Social History Smoking Status: Former smoker Tobacco Type: Cigarettes Second Hand Exposure: No; Do You Dip or Chew Tobacco: No; Hx Alcohol Use: No Hx Substance Use: No Preferred Language: Kyrgyz Communication Ability: Effective Top Installer Required: No Beliefs That Will Affect Care: None Current Living Situation: Alone and Family Current Living Situation Comment: Daughter lives nearby; neighbor. Feels Safe at Home: Yes Assistive Devices: Walker Review of Systems Review of Systems: All systems reviewed & are unremarkable except as noted in Subjective Physical Exam Physical Exam: General: awake, alert, NAD HEENT: no scleral icterus, moist oral mucosa Neck: supple, trachea midline Heart: irregularly irregular Lungs: scattered rhonchi and expiratory wheezes bilaterally Abdomen: soft, NT, ND, +BS Extremities: trace LE edema Skin: warm, dry, no jaundice or cyanosis Neurologic: Ox3, no confusion or dysarthria, moving all extremities Results & Data Results & Data Vital Signs (Past 12 Hours) Vital Signs Temp Pulse Resp BP Pulse Ox O2 Del Method O2 Flow Rate 06/05/24 10:34 Nasal Cannula 2 06/05/24 10:30 108 H 22 93 Nasal Cannula 2 06/05/24 10:30 Nasal Cannula 2 06/05/24 10:18 120 H 06/05/24 10:06 36.8 C 111 H 34 H 124/79 93 Nasal Cannula 2 Laboratory Results Lab Results 06/05/24 06/05/24 Range/Units 10:15 10:32 WBC 6.55 (4.8-10.8) K/ul RBC 3.90 L (4.70-6.10) M/uL Hgb 11.5 L (14.0-18.0) g/dl Hct 35.1 L (42.0-52.0) % MCV 90.0 (80.0-100.0) fL MCH 29.5 (25.0-34.0) pg MCHC 32.8 (32.0-36.0) g/dL RDW Std Deviation 52.5 H (36.4-46.3) fL RDW Coeff of Marcelo 15.9 H (11.5-14.5) % Plt Count 141 (130-400) K/uL MPV 9.7 (9.4-12.4) fL Immature Gran % (Auto) 0.8 % Neut % (Auto) 87.1 % Lymph % (Auto) 5.0 % Ogle % (Auto) 6.9 % Eos % (Auto) 0.0 % Baso % (Auto) 0.2 % Neut # (Auto) 5.71 (1.40-6.50) K/uL Lymph # (Auto) 0.33 L (1.20-3.40) K/uL Ogle # (Auto) 0.45 (0.11-0.59) K/uL Eos # (Auto) 0.00 (0.00-0.50) K/uL Baso # (Auto) 0.01 (0.00-0.20) K/uL Immature Gran # (Auto) 0.05 (0.01-0.20) K/uL Sodium 139 (136-145) mmol/L Potassium 3.7 (3.5-5.1) mmol/L Chloride 106 (98-107) mmol/L Carbon Dioxide 26 (21-32) mmol/L Anion Gap 7 (3-11) BUN 13 (6-23) mg/dl Creatinine 0.94 (0.6-1.4) mg/dl Est Cr Clr Drug Dosing 82.1 ml/min eGFR 81.95 BUN/Creatinine Ratio 13.8 (10-20) Glucose 147 H (70-99(Fasting)) mg/dl Calcium 8.3 L (8.6-10.3) mg/dl Total Bilirubin 1.3 H (0.2-1.0) mg/dl AST 22 (13-39) U/L ALT 37 (7-52) U/L Alkaline Phosphatase 81 (34-104) U/L Total Protein 5.9 L (6.0-8.3) gm/dl Albumin 3.5 (3.4-5.0) gm/dl Globulin 2.4 L (2.5-4.0) gm/dl Albumin/Globulin Ratio 1.5 (0.9-2) Adenovirus (PCR) Not Detected (NotDetected) B. pertussis DNA (PCR) Not Detected (NotDetected) B.parapertussis DNA PCR Not Detected (NotDetected) C. pneumoniae DNA (PCR) Not Detected (NotDetected) Coronavirus OC43 (PCR) Not Detected (NotDetected) Coronavirus HKU1 (PCR) Not Detected (NotDetected) Coronavirus 229E (PCR) Not Detected (NotDetected) SARS-CoV-2 (PCR) Not Detected (NotDetected) Coronavirus NL63 (PCR) Not Detected (NotDetected) Human Metapneumovir PCR Not Detected (NotDetected) Influenza A (H3) PCR DETECTED A (NotDetected) Influenza Type B (PCR) Not Detected (NotDetected) M. pneumoniae (PCR) Not Detected (NotDetected) Parainfluenza 1 (PCR) Not Detected (NotDetected) Parainfluenza 2 (PCR) Not Detected (NotDetected) Parainfluenza 3 (PCR) Not Detected (NotDetected) Parainfluenza 4 (PCR) Not Detected (NotDetected) RSV (PCR) Not Detected (NotDetected) Entero/Rhino (PCR) Not Detected (NotDetected) Diagnostic Findings Chest X-Ray 06/05/24 10:28 XR chest 1V portable CLINICAL HISTORY: Dyspnea COMPARISON STUDY: 01/11/2024 FINDINGS: Stable cardiomegaly with mild pulmonary vascular congestion. There is interval patchy opacity throughout both lungs with relative peripheral sparing. No pleural effusion or pneumothorax. IMPRESSION: 1. CHF. 2. Diffuse patchy pulmonary opacities could represent pneumonia or pulmonary edema. ACT 112: Negative or not required by law. Electronically signed by: Ramana Hinds M.D. 06/05/2024 11:13 AM Medications Administered Doxycycline Hyclate 100 mg/ (Dextrose) 100 mls @ 50 mls/hr IV NOW STA Stop: 06/05/24 13:19 Last Admin: 06/05/24 12:02 Dose: 50 mls/hr Documented By: CEF Discontinued Medications Ceftriaxone Sodium (Rocephin) 2,000 mg in 50 mls @ 100 mls/hr IV NOW STA Stop: 06/05/24 11:49 Last Infusion: 06/05/24 12:05 Dose: Infused Documented By: Admin: 06/05/24 11:33 Dose: 100 mls/hr Documented By: CEF (4) Diabetes mellitus, type 2 Diabetes mellitus complication status: without complication Diabetes mellitus intermediate designer insulin use: without intermediate designer use Qualified Code(s): E11.9 - Type 2 diabetes mellitus without complications (5) Hypertension Hypertension type: unspecified Qualified Code(s): I10 - Essential (primary) hypertension (7) CAD (coronary artery disease) Associated angina: without angina Coronary Disease-Associated Artery/Lesion type: [place] artery [place] vs. transplanted heart: [place] heart Qualified Code(s): I25.10 - Atherosclerotic heart disease of [place] coronary artery without angina pectoris
[2024-06-05] MEDS ORDERED: GLUCAGON FOR INJ 1 MG VIAL SQ PRN (14:10)
[2024-06-05] MEDS ORDERED: CARBOHYDRATES FOR HYPOGLYCEMIA PO PRN (14:10)
[2024-06-05] MEDS ORDERED: GLUCOSE 40% GEL 15 GM TUBE PO PRN (14:10)
[2024-06-05] MEDS ORDERED: DEXTROSE 50% 50 ML SYRINGE IV PRN (14:10)
[2024-06-05] MEDS ORDERED: GLUCOSE 10 TAB/TUBE PO PRN (14:10)
[2024-06-05] MEDS: FUROSEMIDE INJ 20 MG/2 ML VIAL IV ONE ×2 (14:54→21:50)
[2024-06-05 15:05] LABS: Appearance Urine Cloudy (Clear); Bacteria Urine Automated None Seen (None Seen); Bilirubin Urine Negative (Negative); Blood Urine Negative (Negative); Calcium Oxalate Crystals Urine Present (None Prsent); Color Urine Dark Yellow; Glucose Urine UA Negative (Negative); Ketones Urine 1+ (Negative); Leukocyte Esterase Urine Negative (Negative); Nitrite Urine Negative (Negative); Protein Urine 2+ (Negative); Specific Gravity Urine 1.028 (1.000-1.030); Urobilinogen Urine Negative (Negative); WBC Urine Automated 0-5 /hpf (0-5); pH Urine 5.5 (4.5-7.5)
[2024-06-05] MEDS ORDERED: DOCUSATE SODIUM 100 MG CAP PO PRN (15:11)
--- NOTE | 2024-06-05 15:43 | Electrocardiogram Report ---
Test Reason : Blood Pressure : */* mmHG Vent. Rate : 118 BPM Atrial Rate : * BPM P-R Int : * ms QRS Dur : 88 ms QT Int : 342 ms P-R-T Axes : * 138 -35 degrees QTcB Int : 479 ms Atrial fibrillation with rapid ventricular response Right axis deviation Septal infarct , age undetermined Abnormal ECG When compared with ECG of 14-Jan-2024 06:28, Atrial fibrillation has replaced Atrial flutter QRS axis Shifted right Septal infarct is now Present ST no longer depressed in Anterior leads Confirmed by Rey uGtierrez ([id number]) on 06/05/2024 3:43:42 PM Referred By: Confirmed By: Rey Gutierrez
[2024-06-05] MEDS: INSULIN ASPART PER UNIT CHARGE SC SCH (17:54)
[2024-06-05] MEDS: IPRATROPIUM BROMIDE NEB SOLN 0.02% 0.5MG/2.5ML VIAL NEB PRN (20:35)
[2024-06-05] MEDS: LEVALBUTEROL HCL 0.63 MG/3 ML NEB NEB PRN (20:35)
[2024-06-05] MEDS: OSELTAMIVIR PHOSPHATE 75 MG CAP PO SCH (21:05)
[2024-06-05] MEDS: AMOXICILLIN/CLAVULANATE 875 MG TAB PO SCH (21:05)
[2024-06-05] MEDS: guaiFENesin 600 MG TABCR PO SCH (21:05)
[2024-06-05] MEDS: TERAZOSIN HCL 5 MG CAP PO SCH (21:05)
[2024-06-05] MEDS: APIXABAN 5 MG TABLET PO SCH (21:05)
[2024-06-05] MEDS: GABAPENTIN 600 MG TAB PO SCH (21:05)
[2024-06-05] MEDS ORDERED: methylPREDNISolone 125 MG/2 ML VIAL IV STA (21:35)
[2024-06-05] MEDS: POTASSIUM CHLORIDE PWD 20 MEQ PACK PO STA (21:48)
[2024-06-05 21:50] LABS: Base Excess VBG 1.8 mEq/L; HCO3 VBG 26 mmol/L; Oxygen Saturation VBG 88.4 %; PCO2 VBG 37 mmHg (38-50); PO2 VBG 54 mmHg; pH VBG 7.45 (7.36-7.41)
[2024-06-05] MEDS: METOPROLOL TARTRATE 1 MG/ML VIAL IV STA (21:51)
[2024-06-05] MEDS: methylPREDNISolone 20 MG in SYRINGE 0 ML IV STA (21:57)
[2024-06-06] MEDS: METOPROLOL TARTRATE 1 MG/ML VIAL IV STA (02:15)
[2024-06-06] MEDS: cloNIDine HCL 0.1 MG TAB PO ONE (02:33)
[2024-06-06 03:47] LABS: Hemoglobin 11.2 g/dl (14.0-18.0); Mean Corpuscular Hemoglobin 29.7 pg (25.0-34.0); Mean Corpuscular Hgb Conc 32.9 g/dL (32.0-36.0); Mean Corpuscular Volume 90.2 fL (80.0-100.0); Mean Platelet Volume 9.7 fL (9.4-12.4); Platelet Count 141 K/uL (130-400); RDW Coefficient of Variation 15.9 % (11.5-14.5); RDW Standard Deviation 53.1 fL (36.4-46.3); Red Blood Count 3.77 M/uL (4.70-6.10); White Blood Count 6.62 K/ul (4.8-10.8)
[2024-06-06 04:04] LABS: Albumin Level 3.4 gm/dl (3.4-5.0); BUN Creatinine Ratio 16.5 (10-20); Bilirubin Direct 0.4 mg/dl (0-0.2); Calcium 7.8 mg/dl (8.6-10.3); Creatinine Clr Calc Pharmacy 89.8 ml/min; Potassium 3.6 mmol/L (3.5-5.1); Total Protein 5.8 gm/dl (6.0-8.3)
[2024-06-06 04:31] LABS: Immature Granulocytes # (auto) 0.04 K/uL (0.01-0.20); Immature Granulocytes % (auto) 0.6 %; Lymphocytes # (auto) 0.29 K/uL (1.20-3.40); Lymphocytes % (auto) 4.4 %; Monocytes # (auto) 0.27 K/uL (0.11-0.59); Monocytes % (auto) 4.1 %; Neutrophils # (auto) 6.02 K/uL (1.40-6.50); Neutrophils % (auto) 90.9 %
[2024-06-06] MEDS: LOSARTAN POTASSIUM 50 MG TAB PO SCH (06:18)
[2024-06-06 08:45] LABS: Estimated Average Glucose 137 mg/dl; Hemoglobin A1C 6.4 % (4.5-5.6)
[2024-06-06] MEDS ORDERED: LOSARTAN POTASSIUM 50 MG TAB PO SCH (09:00)
[2024-06-06] MEDS: EZETIMIBE 10 MG TAB PO SCH (09:07)
[2024-06-06] MEDS: AMIODARONE 200 MG TAB PO SCH (09:07)
[2024-06-06] MEDS: ATORVASTATIN 10 MG TAB PO SCH (09:07)
[2024-06-06] MEDS: AZITHROMYCIN 250 MG TAB PO SCH (10:03)
[2024-06-06] MEDS: cefTRIAXone SODIUM 2,000 MG/50 ML BAG IV SCH (11:28)
--- NOTE | 2024-06-06 15:42 | Hospitalist Progress Note ---
Date of Service June 06, 2024 Assessment & Plan (1) Acute hypoxemic respiratory failure: (2) Influenza A: (3) Atrial fibrillation with rapid ventricular response: (4) Diabetes mellitus, type 2: (5) Hypertension: (6) High cholesterol: (7) CAD (coronary artery disease): Plan This is an 78 y/o male with atrial fibrillation, on chronic anticoagulation, CAD, HTN, dyslipidemia, DM2, and other history as outlined below who presented to the ED today with cough and shortness of breath x 2 days. Work-up in the ED was positive for influenza A. Chest xray personally reviewed with patchy pulmonary opacities. Suspect componet of volume overload in view of recent admission to [facility] with possible sepsis and cholangitis where he was given IVF hydration. Pt has been on Augmentin for probable cholangitis since discharge and has ten more days of treatment for a total of fourteen days. #Acute hypoxic respiratory failure - suspect multifactorial from influenza A, volume overload, less likely bacterial pneumonia #Influenza A - Admit to PCU - Tamiflu x 5 days - concern for overlying CAP, check MRSA swab and respiratory culture -give another 20 IV lasix today - Continue supplemental O2 titrated to effect - wean as tolerated - Incentive spirometry, guaifenesin - Will give IV furosemide x 1 dose, re-evaluate in the AM - PRN nebs - ipratropium/levalbuterol -goal oxygen saturation 92% #Atrial fibrillation with RVR - suspect elevated rate related to DuoNeb received en route + acute influenza A - Change nebs to Xopenex/ipratropium as above - Continue amiodarone - On chronic AC with Eliquis - will continue #CAD - stable without anginal symptoms - Continue outpatient meds #Recent presumed cholangitis - likely passed stone - Complete course of antibiotic as prescribed - LFTs in the AM #DM2 - last A1c 01/12/24 was 6.4 - Insulin sliding scale - Diabetic diet - BSG ACHS - A1c in the AM #Dyslipidemia - Continue statin #Hypertension - chronic - Continue losartan with holds Admission and Anticipated Discharge Date Admission Date: June 05, 2024 Subjective Patient seen and examined at bedside. Patient is doing little better today. He states he feels little short of breath still but better than yesterday. Review of Systems Review of Systems: CONSTITUTIONAL: weakness, fatigue EYES: Patient denies any visual symptoms. EARS, NOSE, AND THROAT: No difficulties with hearing. No symptoms of rhinitis or sore throat. CARDIOVASCULAR: Patient denies chest pains, palpitations, orthopnea and paroxysmal nocturnal dyspnea. RESPIRATORY: SOB, cough GI: No nausea, vomiting, diarrhea, constipation, abdominal pain, hematochezia or melena. : No urinary hesitancy or dribbling. No nocturia or urinary frequency. No abnormal urethral discharge. MUSCULOSKELETAL: No myalgias or arthralgias. NEUROLOGIC: No chronic headaches, no seizures. Patient denies numbness, tingling or weakness. PSYCHIATRIC: Patient denies problems with mood disturbance. No problems with anxiety. ENDOCRINE: No excessive urination or excessive thirst. DERMATOLOGIC: Patient denies any rashes or skin changes. Physical Exam Physical Exam: Gen: A&O 3 NAD HEENT: NCAT, EOMI, not icteric. External ears normal. No rhinorrhea. Moist mucous membranes. Neck: Supple, full range of motion, no observable masses, No meningeal sign. Lungs: notable rhonchi throughout all lung haney CV: tachycardic, irregular rhythm Abdomen: Soft, nondistended, No rebound tenderness. MSK: No joint swelling, no redness. Skin: No rashes, petechiae, lesions. Normal color per patient. Neuro: Normal Gait, Grossly intact. Psych: Appropriate for situation. Results & Data Results & Data Vital Signs (Past 12 Hours) Vital Signs Pulse Pulse Resp BP BP Pulse Ox O2 Del Method 06/06/24 10:08 102 H 24 99 06/06/24 10:00 158/104 H 06/06/24 10:00 158/104 H 06/06/24 10:00 158/104 H 06/06/24 09:59 109 H 27 H 98 06/06/24 09:35 107 H 34 H 95 06/06/24 09:30 147/102 H 06/06/24 09:30 147/102 H 06/06/24 09:15 109 H 39 H 95 06/06/24 09:12 106 H 35 H 94 06/06/24 08:30 128 H 35 H 88 L 06/06/24 08:30 148/102 H 06/06/24 08:30 148/102 H 06/06/24 08:30 148/102 H 06/06/24 08:00 98 H 22 98 02/25/25 08:00 145/89 H 06/06/24 07:30 87 21 98 06/06/24 07:30 165/96 H 06/06/24 07:30 165/96 H 06/06/24 07:30 165/96 H 06/06/24 07:10 95 H 12 152/94 H 98 Nasal Cannula 06/06/24 07:09 89 20 97 06/06/24 07:00 152/94 H 06/06/24 06:55 87 06/06/24 06:45 91 H 24 06/06/24 06:12 92 H 18 96 Nasal Cannula 06/06/24 06:00 165/109 H 06/06/24 05:30 88 22 163/107 H 96 Nasal Cannula 06/06/24 05:00 107 H 21 162/106 H 96 06/06/24 04:00 164/97 H O2 Flow Rate 06/06/24 10:08 06/06/24 10:00 06/06/24 10:00 06/06/24 10:00 06/06/24 09:59 06/06/24 09:35 06/06/24 09:30 06/06/24 09:30 06/06/24 09:15 06/06/24 09:12 06/06/24 08:30 06/06/24 08:30 06/06/24 08:30 06/06/24 08:30 06/06/24 08:00 06/06/24 08:00 06/06/24 07:30 06/06/24 07:30 06/06/24 07:30 06/06/24 07:30 06/06/24 07:10 4 06/06/24 07:09 06/06/24 07:00 06/06/24 06:55 06/06/24 06:45 06/06/24 06:12 4 06/06/24 06:00 06/06/24 05:30 4 06/06/24 05:00 06/06/24 04:00 Laboratory Results -personally reviewed, normal WBC and positive flu test Medications Administered Amiodarone HCl (Amiodarone 200 Mg Tab) 200 mg PO DAILY LU Stop: 07/06/24 08:59 Last Admin: 06/06/24 09:07 Dose: 200 mg Documented By: BK Apixaban (Apixaban 5 Mg Tablet) 5 mg PO BID LU Stop: 07/05/24 20:59 Last Admin: 06/06/24 09:07 Dose: 5 mg Documented By: Admin: 06/05/24 21:05 Dose: 5 mg Documented By: SUZANNA Atorvastatin Calcium (Atorvastatin 10 Mg Tab) 10 mg PO DAILY LU Stop: 07/06/24 08:59 Last Admin: 06/06/24 09:07 Dose: 10 mg Documented By: RYAN Azithromycin (Azithromycin 250 Mg Tab) 500 mg PO QAM LU Stop: 06/11/24 09:29 Last Admin: 06/06/24 10:03 Dose: 500 mg Documented By: RYAN Ezetimibe (Ezetimibe 10 Mg Tab) 10 mg PO DAILY LU Stop: 07/06/24 08:59 Last Admin: 06/06/24 09:07 Dose: 10 mg Documented By: RYAN Gabapentin (Gabapentin 600 Mg Tab) 600 mg PO BID LU Stop: 07/05/24 20:59 Last Admin: 06/06/24 09:08 Dose: 600 mg Documented By: Admin: 06/05/24 21:05 Dose: 600 mg Documented By: SUZANNA Guaifenesin (Guaifenesin 600 Mg Tabcr) 600 mg PO Q12 LU Stop: 07/05/24 20:59 Last Admin: 06/06/24 09:07 Dose: 600 mg Documented By: Admin: 06/05/24 21:05 Dose: 600 mg Documented By: SUZANNA Ceftriaxone Sodium (Rocephin) 2,000 mg in 50 mls @ 100 mls/hr IV Q24H LU Stop: 06/11/24 10:59 Last Infusion: 06/06/24 12:00 Dose: Infused Documented By: Admin: 06/06/24 11:28 Dose: 100 mls/hr Documented By: GUALBERTO Insulin Aspart (Insulin Aspart Per Unit Charge) 0 units SC ACHS LU Stop: 07/05/24 16:29 Last Admin: 06/06/24 13:36 Dose: 2 units Documented By: RYAN Co-signed By: GUALBERTO Admin: 06/06/24 09:06 Dose: 6 units Documented By: RYAN Co-signed By: HAKEEM Admin: 06/05/24 22:01 Dose: Not Given Documented By: Admin: 06/05/24 17:54 Dose: Not Given Documented By: SALVADOR Ipratropium [place] (Ipratropium [place] Neb Soln 0.02% 0.5mg/2.5ml Vial) 0.5 mg NEB Q6H PRN PRN Reason: Shortness Of Breath Or Wheezing Stop: 07/05/24 14:39 Last Admin: 06/05/24 20:35 Dose: 0.5 mg Documented By: SUZANNA Levalbuterol HCl (Levalbuterol Hcl 0.63 Mg/3 Ml Neb) 0.63 mg NEB Q6H PRN; Protocol PRN Reason: Shortness Of Breath Or Wheezing Stop: 07/05/24 14:39 Last Admin: 06/05/24 20:35 Dose: 0.63 mg Documented By: SUZANNA Losartan Potassium (Losartan Potassium 50 Mg Tab) 100 mg PO QAM [facility] Stop: 07/06/24 05:49 Last Admin: 06/06/24 06:18 Dose: 100 mg Documented By: SUZANNA Oseltamivir Phosphate (Oseltamivir Phosphate 75 Mg Cap) 75 mg PO BID [facility] Stop: 06/10/24 20:59 Last Admin: 06/06/24 09:07 Dose: 75 mg Documented By: Admin: 06/05/24 21:05 Dose: 75 mg Documented By: SUZANNA Terazosin HCl (Terazosin Hcl 5 Mg Cap) 10 mg PO HS [facility] Stop: 07/05/24 20:59 Last Admin: 06/05/24 21:05 Dose: 10 mg Documented By: SUZANNA (4) Diabetes mellitus, type 2 Diabetes mellitus bed bug exterminator insulin use: without half-way use Diabetes mellitus complication status: without complication Qualified Code(s): E11.9 - Type 2 diabetes mellitus without complications (5) Hypertension Hypertension type: unspecified Qualified Code(s): I10 - Essential (primary) hypertension (7) CAD (coronary artery disease) Coronary Disease-Associated Artery/Lesion type: [place] artery [place] vs. transplanted heart: [place] heart Associated angina: without angina Qualified Code(s): I25.10 - Atherosclerotic heart disease of [place] coronary artery without angina pectoris
[2024-06-06] MEDS: FUROSEMIDE INJ 20 MG/2 ML VIAL IV ONE (16:54)
[2024-06-06] MEDS ORDERED: POLYETHYLENE (MIRALAX) 17 GM PACK PO PRN (17:17)
[2024-06-06] MEDS: LORazepam 0.5 MG TAB PO PRN (19:33)
[2024-06-06] MEDS: ACETAMINOPHEN 325 MG TAB PO PRN (20:27)
[2024-06-07 08:41] LABS: Albumin Globulin Ratio 1.1 (0.9-2); Albumin Level 3.1 gm/dl (3.4-5.0); BUN Creatinine Ratio 19.5 (10-20); Bilirubin,Total 0.9 mg/dl (0.2-1.0); Calcium 7.8 mg/dl (8.6-10.3); Creatinine Clr Calc Pharmacy 93.1 ml/min; Globulin 2.8 gm/dl (2.5-4.0); Potassium 3.6 mmol/L (3.5-5.1); Total Protein 5.9 gm/dl (6.0-8.3)
[2024-06-07] MEDS: OPTIRAY 320 125ml IV ONE (09:28)
--- NOTE | 2024-06-07 09:53 | CT Scan Report ---
CT angio chest w con CT DOSE: 849.47 mGy.cm HISTORY: 78 years-old Male with increasing oxygen requirements. Acute hypoxia TECHNIQUE: Multiple CTA images of the chest were obtained after the intravenous administration of 112 ml Optiray. Coronal and sagittal MIPS were obtained from the axial data set and were submitted for review. All measurements were obtained according to NASCET criteria. A dose lowering technique was u tilized adhering to the principles of ALARA. COMPARISON: Chest radiograph 06/05/2024, CT chest 01/11/2024 FINDINGS: CTA: Mild cardiomegaly with small pericardial effusion. Minimal atherosclerosis of the thoracic aorta with out aneurysm or dissection. No pulmonary emboli identified. Moderate coronary artery calcifications. CT CHEST: Unremarkable thyroid. There are a few borderline enlarged lymph nodes of the mediastinum and vandana whi ch are likely reactive measuring up to 11 mm. Trace pleural effusions. No pneumothorax. Mild intralob ular septal thickening with patchy multifocal groundglass opacities in a multilobar distribution, rig ht greater than left. There are a few scattered calcified pulmonary granulomata. More confluent groun dglass densities of the right upper lobe with consolidation. Central airways are patent. Distended stone filled gallbladder. Partially imaged probable exophytic cyst of the left kidney. Mild generalized body wall edema. Degenerative changes of the shoulders and spine. Chronic appearing nond isplaced fracture lateral left seventh rib. IMPRESSION: 1. No pulmonary embolus. 2. Cardiomegaly with small pericardial effusion, interstitial pulmonary edema with trace pleural effu sions. 3. Multifocal multilobar distribution of right greater than left patchy groundglass/mild intermixed c onsolidative opacities may represent alveolar pulmonary edema versus multifocal pneumonia. 4. Mild lymphadenopathy is likely reactive. 5. Cholelithiasis. ACT 112: Negative or not required by law. The above report was generated using voice recognition software. It may contain grammatical, syntax o r spelling errors. Electronically signed by: Ricardo Pruett M.D. 06/07/2024 9:52 AM
[2024-06-07] MEDS: COUGH DROP (SUGAR FREE) LOZ 24 LOZ/1 BOX BUCCAL PRN (10:23)
[2024-06-07] MEDS: ALBUT/IPRATROP 3MG/0.5MG NEB 3 ML VIAL NEB SCH (13:41)
--- NOTE | 2024-06-07 17:28 | Hospitalist Progress Note ---
Date of Service June 07, 2024 Assessment & Plan (1) Acute hypoxemic respiratory failure: (2) Influenza A: (3) Atrial fibrillation with rapid ventricular response: (4) Diabetes mellitus, type 2: (5) Hypertension: (6) High cholesterol: (7) CAD (coronary artery disease): Plan This is an 78 y/o male with atrial fibrillation, on chronic anticoagulation, CAD, HTN, dyslipidemia, DM2, and other history as outlined below who presented to the ED today with cough and shortness of breath x 2 days. Work-up in the ED was positive for influenza A. Chest xray personally reviewed with patchy pulmonary opacities. Suspect componet of volume overload in view of recent admission to [facility] with possible sepsis and cholangitis where he was given IVF hydration. Pt has been on Augmentin for probable cholangitis since discharge and has ten more days of treatment for a total of fourteen days. #Acute hypoxic respiratory failure - suspect multifactorial from influenza A, volume overload, less likely bacterial pneumonia #Influenza A - Tamiflu x 5 days - concern for overlying CAP, MRSA swab negative and respiratory culture ordered - start lasix 20 IV bid given evidence of pulmonary edema -CT scan revealed ongoing multifocal pneumonia and pulmonary edema -start scheduled nebs - Continue supplemental O2 titrated to effect - wean as tolerated - Incentive spirometry, guaifenesin - PRN nebs - ipratropium/levalbuterol -goal oxygen saturation 92% #Atrial fibrillation with RVR - suspect elevated rate related to DuoNeb received en route + acute influenza A - Change nebs to Xopenex/ipratropium as above - Continue amiodarone - On chronic AC with Eliquis - will continue #CAD - stable without anginal symptoms - Continue outpatient meds #Recent presumed cholangitis - likely passed stone - Complete course of antibiotic as prescribed - LFTs in the AM #DM2 - last A1c 01/12/24 was 6.4 - Insulin sliding scale - Diabetic diet - BSG ACHS - A1c in the AM #Dyslipidemia - Continue statin #Hypertension - chronic - Continue losartan with holds Feeding/fluids: regular Analgesia: tylenol Sedation: na Thromboprophylaxis: eliquis Head up position: na Ulcer prophylaxis: na Glycemic control: insulin per protocol Spontaneous breathing trial: high flow wean as tolerated Bowel care: miralax prn Indwelling catheter removal: na Deescalation of antibiotics: 7-10 day course of abx Admission and Anticipated Discharge Date Admission Date: June 05, 2024 Subjective Patient seen and examined at bedside. Mr. Valentin is doing ok today. He feels a little better than yesterday. Review of Systems Review of Systems: CONSTITUTIONAL: weakness, fatigue EYES: Patient denies any visual symptoms. EARS, NOSE, AND THROAT: No difficulties with hearing. No symptoms of rhinitis or sore throat. CARDIOVASCULAR: Patient denies chest pains, palpitations, orthopnea and paroxysmal nocturnal dyspnea. RESPIRATORY: SOB, cough, slightly improved GI: No nausea, vomiting, diarrhea, constipation, abdominal pain, hematochezia or melena. : No urinary hesitancy or dribbling. No nocturia or urinary frequency. No abnormal urethral discharge. MUSCULOSKELETAL: No myalgias or arthralgias. NEUROLOGIC: No chronic headaches, no seizures. Patient denies numbness, tingling or weakness. PSYCHIATRIC: Patient denies problems with mood disturbance. No problems with anxiety. ENDOCRINE: No excessive urination or excessive thirst. DERMATOLOGIC: Patient denies any rashes or skin changes. Physical Exam Physical Exam: Gen: A&O 3 NAD HEENT: NCAT, EOMI, not icteric. External ears normal. No rhinorrhea. Moist mucous membranes. Neck: Supple, full range of motion, no observable masses, No meningeal sign. Lungs: notable rhonchi throughout all lung haney, similar to prior CV: tachycardic, irregular rhythm Abdomen: Soft, nondistended, No rebound tenderness. MSK: No joint swelling, no redness. Skin: No rashes, petechiae, lesions. Normal color per patient. Neuro: Normal Gait, Grossly intact. Psych: Appropriate for situation. Results & Data Results & Data Vital Signs (Past 12 Hours) Vital Signs Temp Pulse Pulse Resp BP Pulse Ox O2 Del Method 06/07/24 14:57 36.6 C 108 H 18 124/77 90 High Flow Nasal Cannula 06/07/24 13:42 103 H 20 90 Nasal Cannula 06/07/24 11:06 36.6 C 93 H 18 148/89 H 95 Nasal Cannula 06/07/24 08:56 Nasal Cannula 06/07/24 07:44 77 06/07/24 07:15 36.7 C 94 H 18 137/70 96 High Flow Nasal Cannula O2 Flow Rate 06/07/24 14:57 7 06/07/24 13:42 7 06/07/24 11:06 6 06/07/24 08:56 06/07/24 07:44 06/07/24 07:15 7 Laboratory Results -personally reviewed, creatinine at baseline Diagnostic Findings Acetaminophen (Acetaminophen 325 Mg Tab) 650 mg PO Q4H PRN PRN Reason: Pain or Fever Stop: 07/05/24 15:10 Last Admin: 06/06/24 20:27 Dose: 650 mg Documented By: NATASHA Albuterol (Albut/Ipratrop 3mg/0.5mg Neb 3 Ml Vial) 3 ml NEB Q6R [facility]; Protocol Stop: 07/07/24 12:59 Last Admin: 06/07/24 13:41 Dose: 3 ml Documented By: ROSS Amiodarone HCl (Amiodarone 200 Mg Tab) 200 mg PO DAILY [facility] Stop: 07/06/24 08:59 Last Admin: 06/07/24 10:24 Dose: 200 mg Documented By: Admin: 06/06/24 09:07 Dose: 200 mg Documented By: RYAN Apixaban (Apixaban 5 Mg Tablet) 5 mg PO BID [facility] Stop: 07/05/24 20:59 Last Admin: 06/07/24 08:24 Dose: 5 mg Documented By: Admin: 06/06/24 20:27 Dose: 5 mg Documented By: Admin: 06/06/24 09:07 Dose: 5 mg Documented By: Admin: 06/05/24 21:05 Dose: 5 mg Documented By: SUZANNA Atorvastatin Calcium (Atorvastatin 10 Mg Tab) 10 mg PO DAILY [facility] Stop: 07/06/24 08:59 Last Admin: 06/07/24 08:24 Dose: 10 mg Documented By: Admin: 06/06/24 09:07 Dose: 10 mg Documented By: RYAN Azithromycin (Azithromycin 250 Mg Tab) [facility] [place]: 06/11/24 09:29 Last Admin: 06/07/24 08:24 Dose: 500 mg Documented By: Admin: 06/06/24 10:03 Dose: 500 mg Documented By: RYAN Ezetimibe (Ezetimibe 10 Mg Tab) 10 mg PO DAILY [facility] Stop: 07/06/24 08:59 Last Admin: 06/07/24 08:24 Dose: 10 mg Documented By: Admin: 06/06/24 09:07 Dose: 10 mg Documented By: RYAN Gabapentin (Gabapentin 600 Mg Tab) 600 mg PO BID [facility] Stop: 07/05/24 20:59 Last Admin: 06/07/24 09:55 Dose: 600 mg Documented By: Admin: 06/06/24 20:27 Dose: 600 mg Documented By: Admin: 06/06/24 09:08 Dose: 600 mg Documented By: Admin: 06/05/24 21:05 Dose: 600 mg Documented By: SUZANNA Guaifenesin (Guaifenesin 600 Mg Tabcr) 600 mg PO Q12 [facility] Stop: 07/05/24 20:59 Last Admin: 06/07/24 09:55 Dose: 600 mg Documented By: Admin: 06/06/24 20:27 Dose: 600 mg Documented By: Admin: 06/06/24 09:07 Dose: 600 mg Documented By: Admin: 06/05/24 21:05 Dose: 600 mg Documented By: SUZANNA Ceftriaxone Sodium (Rocephin) 2,000 mg in 50 mls @ 100 mls/hr IV Q24H LU Stop: 06/11/24 10:59 Last Infusion: 06/07/24 11:16 Dose: Infused Documented By: Admin: 06/07/24 10:28 Dose: 100 mls/hr Documented By: Infusion: 06/06/24 12:00 Dose: Infused Documented By: Admin: 06/06/24 11:28 Dose: 100 mls/hr Documented By: GUALBERTO Insulin Aspart (Insulin Aspart Per Unit Charge) 0 units SC ACHS LU Stop: 07/05/24 16:29 Last Admin: 06/07/24 17:05 Dose: Not Given Documented By: Admin: 06/07/24 13:08 Dose: 3 units Documented By: TANYA Co-signed By: RONALD Admin: 06/07/24 08:26 Dose: 6 units Documented By: TANYA Co-signed By: CALE Admin: 06/06/24 22:13 Dose: Not Given Documented By: Admin: 06/06/24 19:29 Dose: 7 units Documented By: NATASHA Co-signed By: SALVADOR Admin: 06/06/24 13:36 Dose: 2 units Documented By: RYAN Co-signed By: GUALBERTO Admin: 06/06/24 09:06 Dose: 6 units Documented By: RYAN Co-signed By: HAKEEM Admin: 06/05/24 22:01 Dose: Not Given Documented By: Admin: 06/05/24 17:54 Dose: Not Given Documented By: SALVADOR Ipratropium [place] (Ipratropium [place] Neb Soln 0.02% 0.5mg/2.5ml Vial) 0.5 mg NEB Q6H PRN PRN Reason: Shortness Of Breath Or Wheezing Stop: 07/05/24 14:39 Last Admin: 06/06/24 20:57 Dose: 0.5 mg Documented By: Admin: 06/05/24 20:35 Dose: 0.5 mg Documented By: SUZANNA Levalbuterol HCl (Levalbuterol Hcl 0.63 Mg/3 Ml Neb) 0.63 mg NEB Q6H PRN; Protocol PRN Reason: Shortness Of Breath Or Wheezing Stop: 07/05/24 14:39 Last Admin: 06/06/24 20:57 Dose: 0.63 mg Documented By: Admin: 06/05/24 20:35 Dose: 0.63 mg Documented By: SUZANNA Lorazepam (Lorazepam 0.5 Mg Tab) 0.5 mg PO DAILY PRN PRN Reason: Anxiety Stop: 07/05/24 15:10 Last Admin: 06/06/24 19:33 Dose: 0.5 mg Documented By: NATASHA Losartan Potassium (Losartan Potassium 50 Mg Tab) 100 mg PO QAM LU Stop: 07/06/24 05:49 Last Admin: 06/07/24 08:23 Dose: 100 mg Documented By: Admin: 06/06/24 06:18 Dose: 100 mg Documented By: SUZANNA Menthol (Cough Drop (Sugar Free) Anika 24 Anika/1 Box) 1 anika BUCCAL NOW PRN PRN Reason: Sore Throat Stop: 07/07/24 10:02 Last Admin: 06/07/24 10:23 Dose: 1 anika Documented By: TANYA Oseltamivir Phosphate (Oseltamivir Phosphate 75 Mg Cap) 75 mg PO BID LU Stop: 06/10/24 20:59 Last Admin: 02/26/25 09:55 Dose: 75 mg Documented By: Admin: 06/06/24 20:27 Dose: 75 mg Documented By: Admin: 06/06/24 09:07 Dose: 75 mg Documented By: Admin: 06/05/24 21:05 Dose: 75 mg Documented By: SUZANNA Terazosin HCl (Terazosin Hcl 5 Mg Cap) 10 mg PO HS LU Stop: 07/05/24 20:59 Last Admin: 06/06/24 20:27 Dose: 10 mg Documented By: Admin: 06/05/24 21:05 Dose: 10 mg Documented By: SUZANNA (4) Diabetes mellitus, type 2 Diabetes mellitus terminologist insulin use: without terminologist use Diabetes mellitus complication status: without complication Qualified Code(s): E11.9 - Type 2 diabetes mellitus without complications (5) Hypertension Hypertension type: unspecified Qualified Code(s): I10 - Essential (primary) hypertension (7) CAD (coronary artery disease) Coronary Disease-Associated Artery/Lesion type: [place] artery [place] vs. transplanted heart: [place] heart Associated angina: without angina Qualified Code(s): I25.10 - Atherosclerotic heart disease of [place] coronary artery without angina pectoris
[2024-06-07] MEDS: FUROSEMIDE INJ 20 MG/2 ML VIAL IV SCH (17:48)
[2024-06-08 07:46] LABS: Albumin Globulin Ratio 1.1 (0.9-2); Calcium 7.7 mg/dl (8.6-10.3); Creatinine Clr Calc Pharmacy 94.3 ml/min; Globulin 2.8 gm/dl (2.5-4.0); Magnesium 2.1 mg/dl (1.7-2.4); Potassium 3.9 mmol/L (3.5-5.1); Total Protein 5.8 gm/dl (6.0-8.3)
[2024-06-08 14:42] VITALS: BP 117/74; PULSE 115; RESP 22; TEMP 97.7; O2SAT 88
--- NOTE | 2024-06-08 19:21 | Discharge Summary ---
Discharge Summary Date of Service June 08, 2024 Principal Dx & Hospital Course #1 = Principal Diagnosis (1) Acute hypoxemic respiratory failure: (2) Influenza A: (3) Atrial fibrillation with rapid ventricular response: (4) Diabetes mellitus, type 2: (5) Hypertension: (6) High cholesterol: (7) CAD (coronary artery disease): Plan This is an 78 y/o male with atrial fibrillation, on chronic anticoagulation, CAD, HTN, dyslipidemia, DM2, and other history as outlined below who presented to the ED today with cough and shortness of breath x 2 days. Work-up in the ED was positive for influenza A. Chest xray personally reviewed with patchy pulmonary opacities. Suspect componet of volume overload in view of recent admission to [facility] with possible sepsis and cholangitis where he was given IVF hydration. Pt has been on Augmentin for probable cholangitis since discharge and has ten more days of treatment for a total of fourteen days. #Acute hypoxic respiratory failure - suspect multifactorial from influenza A, volume overload, less likely bacterial pneumonia #Influenza A - Tamiflu x 5 days - concern for overlying CAP, MRSA swab negative and respiratory culture ordered - continue lasix 20 IV bid given evidence of pulmonary edema -CT scan revealed ongoing multifocal pneumonia and pulmonary edema -continue scheduled nebs - Continue supplemental O2 titrated to effect - wean as tolerated - Incentive spirometry, guaifenesin - PRN nebs - ipratropium/levalbuterol -goal oxygen saturation 92% #Atrial fibrillation with RVR - suspect elevated rate related to DuoNeb received en route + acute influenza A - Change nebs to Xopenex/ipratropium as above - Continue amiodarone - On chronic AC with Eliquis - will continue #CAD - stable without anginal symptoms - Continue outpatient meds #Recent presumed cholangitis - likely passed stone #DM2 - last A1c 01/12/24 was 6.4 - Insulin sliding scale - Diabetic diet - BSG ACHS - A1c in the AM #Dyslipidemia - Continue statin #Hypertension - chronic - Continue losartan with holds Feeding/fluids: regular Analgesia: tylenol Sedation: na Thromboprophylaxis: eliquis Head up position: na Ulcer prophylaxis: na Glycemic control: insulin per protocol Spontaneous breathing trial: high flow wean as tolerated Bowel care: miralax prn Indwelling catheter removal: na Deescalation of antibiotics: 7-10 day course of abx Notes For Next Care Provider This is an 78 y/o male with atrial fibrillation, on chronic anticoagulation, CAD, HTN, dyslipidemia, DM2, and other history as outlined below who presented to the ED today with cough and shortness of breath x 2 days. In the ED, noted to have the flu, admitted to medicine. On medicine, required high flow nc, placed on abx for CAP, given lasix for pulmonary edema. Slightly improved compared to admission. Transferred to [place] given insurance reasons and to continue care. Medication Changes From Visit -continue therapies at [place] Admission HPI Per Admitting Provider This is an 78 y/o male with atrial fibrillation, on chronic anticoagulation, CAD, HTN, dyslipidemia, DM2, and other history as outlined below who presented to the ED today with cough and shortness of breath x 2 days. He was reportedly admitted to [facility] last week for three days for his "gallbladder" although pt is unsure of the exact diagnosis. From his description, it seems most consistent with cholangitis. Pt reports that he was told that he likely passed a stone. Cholecystectomy and/or ERCP were discussed but pt declined preferring to manage conservatively so he was discharged on two weeks of Augmentin. He reports that the abdominal pain from last week has completely resolved with no recurrent symptoms since discharge four days ago. Three days ago, he reportedly started with a mild cough. Two days, he felt significantly worse with productive cough, chest congestion, OHARA, runny nose, PND, and shortness of breath. Wednesday night, he reports he couldn't sleep due to orthopnea and cough. [place] worse yesterday, again didn't sleep last night, before he finally called EMS this morning. He was noted to be hypoxic on their arrival and placed on 6L of O2 but sats still in the low 90s. Given a DuoNeb en route with improvement in sats to upper 90s. In the ED, O2 was able to titrated down to 2L. Over the last two days, appetite has been poor with limited oral intake. However, he denies abdominal pain, N/V/D at present. He notes significant fatigue and weakness but denies myalgias or arthralgias. Discharge Exam Gen: A&O 3 NAD HEENT: NCAT, EOMI, not icteric. External ears normal. No rhinorrhea. Moist mucous membranes. Neck: Supple, full range of motion, no observable masses, No meningeal sign. Lungs: notable rhonchi throughout all lung haney, improved from prior CV: tachycardic, irregular rhythm Abdomen: Soft, nondistended, No rebound tenderness. MSK: No joint swelling, no redness. Skin: No rashes, petechiae, lesions. Normal color per patient. Neuro: Normal Gait, Grossly intact. Psych: Appropriate for situation. Updated Medication List Medication Instructions Recorded Confirmed Type apixaban 5 mg tablet (Eliquis) 5 mg PO BID 11/09/19 06/05/24 History atorvastatin 10 mg tablet (Lipitor) 10 mg PO DAILY 11/09/19 06/05/24 History ezetimibe 10 mg tablet (Zetia) 10 mg PO DAILY 11/09/19 06/05/24 History terazosin 10 mg capsule 10 mg PO HS 11/09/19 06/05/24 History semaglutide 1 mg/dose (4 mg/3 mL) 1 mg subcut WK 01/12/24 06/05/24 History subcutaneous pen injector (Ozempic) amiodarone 200 mg tablet 200 mg PO DAILY 06/05/24 06/05/24 History amoxicillin 500 mg-potassium 1 tab PO BID 06/05/24 06/05/24 History clavulanate 125 mg tablet (Augmentin) docusate sodium 100 mg capsule 100 mg PO DAILY PRN constipation 06/05/24 06/05/24 History gabapentin 600 mg tablet 600 mg PO BID 06/05/24 06/05/24 History lorazepam 0.5 mg tablet 0.5 mg PO DAILY PRN Anxiety 06/05/24 06/05/24 History losartan 50 mg tablet 50 mg PO DAILY 06/05/24 06/05/24 History Hospital Stay Data Consultations 06/05/24 13:37 ED Decision to Admit Stat Diagnostic Imagining Performed 06/07/24 07:37 CTA chest w con [CT angio chest w con] Urgent Pending Results Patient Have Any Pending Studies at Discharge: No Discharge Instructions Given to Patient (Per Discharging Provider) 1. Transfer [place] [facility]. 2. Finish course of abx and tamiflu 3. Continue diuresis. Total Time Total Time Spent Total Time Spent (In Minutes): I spent a total of 35 minutes in direct patient care, including [id number] time with the patient and/or family, reviewing medical records, ordering and reviewing diagnostic tests, and coordinating care with other healthcare providers. This time includes: history taking, physical examination, medical decision making, counseling, ECG interpretation, imaging interpretation, lab interpretation, orders, and education, excluding time spent in the performance of separately billed services.
--- NOTE | 2024-06-09 22:59 | Electrocardiogram Report ---
Test Reason : Blood Pressure : */* mmHG Vent. Rate : 91 BPM Atrial Rate : * BPM P-R Int : * ms QRS Dur : 92 ms QT Int : 328 ms P-R-T Axes : * 2 -64 degrees QTcB Int : 403 ms Atrial fibrillation Low voltage QRS Septal infarct (cited on or before 05-Jun-2024) Nonspecific T wave abnormality Abnormal ECG When compared with ECG of 05-Jun-2024 10:18, QRS axis Shifted left Confirmed by Jaret Daley ([id number]) on 06/09/2024 10:58:40 PM Referred By: REFERRED SELF Confirmed By: Jaret Daley
== END 2024-06-08 16:20 | DRG 193 ==
LOC: ED 10:06 → EDINP 12:51 → SUATTDRO 12:51 → EDINP 14:58 → 2S 15:11